=== PATIENT | male | born 1960 | race Caucasian/White ===

== ENCOUNTER 2022-12-04 17:57 | Inpatient (IN) ==
[2022-12-04] MEDS ORDERED: NITROGLYCERIN SL 0.4 MG/TAB TAB SL PRN (18:05)
[2022-12-04] MEDS ORDERED: NITROGLYCERIN SL 0.4 MG/TAB TAB ONE (18:05)
[2022-12-04 18:34] LABS: Basophils # (auto) 0.11 K/uL (0.00-0.20); Basophils % (auto) 1.1 %; Eosinophils # (auto) 0.23 K/uL (0.00-0.50); Eosinophils % (auto) 2.2 %; Hematocrit (blood only) 41.5 % (42.0-52.0); Hemoglobin 14.9 g/dl (14.0-18.0); Immature Granulocytes # (auto) 0.04 K/uL (0.01-0.20); Immature Granulocytes % (auto) 0.4 %; Lymphocytes # (auto) 3.29 K/uL (1.20-3.40); Lymphocytes % (auto) 31.9 %; Mean Corpuscular Hemoglobin 30.9 pg (25.0-34.0); Mean Corpuscular Hgb Conc 35.9 g/dL (32.0-36.0); Mean Corpuscular Volume 86.1 fL (80.0-100.0); Mean Platelet Volume 11.4 fL (9.4-12.4); Monocytes # (auto) 0.75 K/uL (0.11-0.59); Monocytes % (auto) 7.3 %; Neutrophils # (auto) 5.88 K/uL (1.40-6.50); Neutrophils % (auto) 57.1 %; Platelet Count 303 K/uL (130-400); RDW Coefficient of Variation 13.1 % (11.5-14.5); RDW Standard Deviation 40.6 fL (36.4-46.3); Red Blood Count 4.82 M/uL (4.70-6.10)
[2022-12-04 18:50] LABS: Alanine Aminotransferase 42 U/L (7-52); Albumin Globulin Ratio 2.3 (0.9-2); Albumin Level 4.6 gm/dl (3.4-5.0); Alkaline Phosphatase 84 U/L (34-104); Anion Gap 7 (3-11); Aspartate Aminotransferase 47 U/L (13-39); BUN Creatinine Ratio 17.3 (10-20); Bilirubin,Total 0.8 mg/dl (0.2-1.0); Blood Urea Nitrogen 14 mg/dl (6-23); Calcium 9.4 mg/dl (8.6-10.3); Carbon Dioxide 23 mmol/L (21-32); Chloride 109 mmol/L (98-107); Est GFR (African American) 109.6 ml/min; Est GFR (Non-African American) 94.6 ml/min; Glucose 112 mg/dl (70-99(Fasting)); Lipase 44 U/L (11-82); Potassium 3.6 mmol/L (3.5-5.1); Sodium 139 mmol/L (136-145); Total Protein 6.6 gm/dl (6.0-8.3)
[2022-12-04 18:56] LABS: Troponin I High Sensitivity 45.4 pg/ml (0-20)
[2022-12-04 19:02] LABS: Partial Thromboplastin Ratio 0.9; Partial Thromboplastin Time 24.2 Seconds (21.0-31.0); Prothrombin Time 10.8 Seconds (9.0-12.0)
--- NOTE | 2022-12-04 19:18 | XRay Report ---
SINGLE VIEW CHEST CLINICAL HISTORY: Atypical chest pain. FINDINGS: 2 AP, portable, upright chest radiographs are obtained. No prior studies are available for comparison at the time of dictation. The examination is degraded by portable technique and apical marisa dotic positioning. The heart is mildly enlarged. The pulmonary vasculature is noncongested. The lungs and pleural spaces are clear. No pneumothorax is seen. The bony thorax is grossly intact. IMPRESSION: No acute cardiopulmonary abnormality. ACT 112: Negative or not required by law. Electronically signed by: Ruben Melton M.D. 12/04/2022 7:16 PM
[2022-12-04] MEDS ORDERED: LACTATED RINGER'S 1,000 ML IV ONE (19:49)
--- NOTE | 2022-12-04 20:47 | History & Physical Report ---
Date of Service December 04, 2022 Assessment & Plan (1) Symptomatic bradycardia: Plan: Chest pain with troponin elevation currently downtrending History of CAD status post recent stent valvular heart disease (moderate aortic stenosis, trace MR/TR) JACQUELYN on CPAP PCU Atropine as needed symptomatic bradycardia Follow troponin TTE if with progression Further evaluation and management as per Cardiology (ER provider already in touch with Dr. Trevizo.) N.p.o. after midnight in anticipation of procedure DVT prophylaxis. Lovenox subcu Full code Patient requesting updates from providers. Ms. Angely Arceo, contact #[phone]. Text document was generated using [employer] voice recognition software. It may contain grammatical or spelling errors. Kindly contact undersigned for clarification of any documentation item in question. History of Present Illness Chief Complaint: Chest pain Primary Care Provider: Milly Loza MD History obtained from patient, family, and records. Medical history significant for CAD status post recent stent, valvular heart disease (moderate aortic stenosis, trace MR/TR), JACQUELYN on CPAP. 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 Subsequent PCI of severe proximal LAD CAD. Patient discharged on new antiplatelet and statin medications. Patient had substernal discomfort this afternoon with shortness of breath and diaphoresis. Nonpleuritic. Patient stressed out thinking about medical and dental bills. No response to Tums and nitro medication intake. EMS called to patient's home. Blood pressure 80s, heart rate 40s. Patient given atropine and aspirin by EMS. Chest pressure improved after intervention. Patient subsequently transported to the ER. 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 Allergies Allergy/AdvReac Type Severity Reaction Status Date / Time nitrofurantoin AdvReac Intermediate Chills, Verified 12/04/22 18:27 Rigors sulfadimethoxine AdvReac Intermediate Chills, Verified 12/04/22 18:27 rigors Home Medications Medication Instructions Recorded Confirmed Type CPAP Machine #1 ea 11/06/18 07/31/22 Rx CPAP Machine #1 ea 01/29/19 07/31/22 Rx multivitamin (Daily Multi-Vitamin 1 tab PO DAILY 04/29/19 12/04/22 History tablet) omega-3 fatty acids-fish oil 360 2 cap PO DAILY 04/29/19 12/04/22 History mg-1,200 mg capsule (Fish Oil) loratadine 10 mg tablet (Allergy 10 mg PO DAILY PRN allergy symptoms 06/08/20 12/04/22 History Relief (loratadine)) nitroglycerin 0.4 mg sublingual 0.4 mg sublingual Q5M PRN chest 11/29/22 12/04/22 Rx tablet pain #20 tabs atorvastatin 80 mg tablet 80 mg PO HS #30 tabs 12/03/22 12/04/22 Rx clopidogrel 75 mg tablet (Plavix) 75 mg PO DAILY #90 tabs 12/03/22 12/04/22 Rx ascorbic acid (vitamin C) 500 mg 500 mg PO DAILY 12/04/22 12/04/22 History tablet (Vitamin C) aspirin 81 mg tablet,delayed 81 mg PO HS 12/04/22 12/04/22 History release jena (Zingiber officinalis) 500 0 mg PO DAILY 12/04/22 12/04/22 History mg capsule metoprolol succinate 25 mg 25 mg PO HS 12/04/22 12/04/22 History tablet,extended release 24 hr turmeric 400 mg capsule 400 mg PO BID 12/04/22 12/04/22 History Past Med/Surg History Medical History Aortic stenosis Bicuspid aortic valve Chronic sinusitis Obstructive sleep apnea of adult Prostatitis Surgical History History of tonsillectomy Family History Unknown Heart disease Dementia Myocardial infarction Unknown Multiple sclerosis Social History Smoking Status: Never smoker Hx Alcohol Use: Yes Alcohol type: beer Hx Substance Use: No Preferred Language: Mongolian Communication Ability: Effective 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 Beliefs That Will Affect Care: None Current Living Situation: Spouse Other Information That Helps Us Care for You: No Feels Safe at Home: Yes Safety Concerns: Feels Safe At This Time Assistive Devices: CPAP Review of Systems Review of Systems: As per HPI, all other systems reviewed and negative Physical Exam Physical Exam: GENERAL: Comfortable, slightly anxious, pleasant, no respiratory distress SKIN: Normal color, warm HEENT: Bespectacled, [place] palpebral conjunctivae, no ptosis, dry buccal mucosa NECK : Supple, no tenderness CHEST : CTA, no tenderness HEART : Bradycardic, systolic murmur ABDOMEN: Some distention, nontender EXTREMITIES : No LE swelling/tenderness, no other conspicuous deformities noted NEUROLOGIC : Coherent, no facial asymmetry, no other gross focality Results & Data Results & Data Vital Signs (Past 12 Hours) Vital Signs Temp Pulse Resp BP Pulse Ox O2 Del Method 12/04/22 20:00 59 L 17 99 12/04/22 19:30 57 L 14 99 12/04/22 19:30 107/69 12/04/22 19:15 58 L 13 114/70 100 12/04/22 19:00 63 16 108/68 100 12/04/22 18:50 62 14 100/68 99 12/04/22 18:40 64 14 99 12/04/22 18:40 108/69 12/04/22 18:30 65 20 98 12/04/22 18:30 111/70 12/04/22 18:20 75 16 95 Room Air 12/04/22 18:20 116/71 12/04/22 18:10 106/75 12/04/22 18:10 79 18 97 12/04/22 18:03 73 14 12/04/22 18:03 137/84 12/04/22 18:02 73 17 99 12/04/22 18:10 81 12/04/22 18:00 36.9 C 77 18 137/84 100 Room Air Laboratory Results Laboratory Results WBC 10.30 K/ul (4.8-10.8) 12/04/22 17:35 RBC 4.82 M/uL (4.70-6.10) 12/04/22 17:35 Hgb 14.9 g/dl (14.0-18.0) 12/04/22 17:35 Hct 41.5 % (42.0-52.0) L 12/04/22 17:35 MCV 86.1 fL (80.0-100.0) 12/04/22 17:35 MCH 30.9 pg (25.0-34.0) 12/04/22 17:35 MCHC 35.9 g/dL (32.0-36.0) 12/04/22 17:35 RDW Std Deviation 40.6 fL (36.4-46.3) 12/04/22 17:35 RDW Coeff of Ninfa 13.1 % (11.5-14.5) 12/04/22 17:35 Plt Count 303 K/uL (130-400) 12/04/22 17:35 MPV 11.4 fL (9.4-12.4) 12/04/22 17:35 Immature Gran % (Auto) 0.4 % 12/04/22 17:35 Neut % (Auto) 57.1 % 12/04/22 17:35 Lymph % (Auto) 31.9 % 12/04/22 17:35 [place] % (Auto) 7.3 % 12/04/22 17:35 Eos % (Auto) 2.2 % 12/04/22 17:35 Baso % (Auto) 1.1 % 12/04/22 17:35 Neut # (Auto) 5.88 K/uL (1.40-6.50) 12/04/22 17:35 Lymph # (Auto) 3.29 K/uL (1.20-3.40) 12/04/22 17:35 [place] # (Auto) 0.75 K/uL (0.11-0.59) H 12/04/22 17:35 Eos # (Auto) 0.23 K/uL (0.00-0.50) 12/04/22 17:35 Baso # (Auto) 0.11 K/uL (0.00-0.20) 12/04/22 17:35 Immature Gran # (Auto) 0.04 K/uL (0.01-0.20) 12/04/22 17:35 PT 10.8 Seconds (9.0-12.0) 12/04/22 17:35 INR 1.0 (0.9-1.1) 12/04/22 17:35 APTT 24.2 Seconds (21.0-31.0) 12/04/22 17:35 PTT Ratio 0.9 12/04/22 17:35 Sodium 139 mmol/L (136-145) 12/04/22 17:35 Potassium 3.6 mmol/L (3.5-5.1) 12/04/22 17:35 Chloride 109 mmol/L (98-107) H 12/04/22 17:35 Carbon Dioxide 23 mmol/L (21-32) 12/04/22 17:35 Anion Gap 7 (3-11) 12/04/22 17:35 BUN 14 mg/dl (6-23) 12/04/22 17:35 Creatinine 0.81 mg/dl (0.6-1.4) 12/04/22 17:35 Est Cr Clr Drug Dosing Not Reportable 12/04/22 17:35 Est GFR ( Amer) 109.6 ml/min 12/04/22 17:35 Est GFR (Non-Af Amer) 94.6 ml/min 12/04/22 17:35 BUN/Creatinine Ratio 17.3 (10-20) 12/04/22 17:35 Glucose 112 mg/dl (70-99(Fasting)) H 12/04/22 17:35 POC Glucose 95 mg/dl (70-99) 12/04/22 18:02 Calcium 9.4 mg/dl (8.6-10.3) 12/04/22 17:35 Magnesium 2.0 mg/dl (1.7-2.4) 12/04/22 17:35 Total Bilirubin 0.8 mg/dl (0.2-1.0) 12/04/22 17:35 AST 47 U/L (13-39) H 12/04/22 17:35 ALT 42 U/L (7-52) 12/04/22 17:35 Alkaline Phosphatase 84 U/L (34-104) 12/04/22 17:35 Troponin I High Sens 45.4 pg/ml (0-20) H 12/04/22 17:35 Total Protein 6.6 gm/dl (6.0-8.3) 12/04/22 17:35 Albumin 4.6 gm/dl (3.4-5.0) 12/04/22 17:35 Globulin 2.0 gm/dl (2.5-4.0) L 12/04/22 17:35 Albumin/Globulin Ratio 2.3 (0.9-2) H 12/04/22 17:35 Lipase 44 U/L (11-82) 12/04/22 17:35 Impressions Chest X-Ray 12/04/22 18:05 SINGLE VIEW CHEST CLINICAL HISTORY: Atypical chest pain. FINDINGS: 2 AP, portable, upright chest radiographs are obtained. No prior studies are available for comparison at the time of dictation. The examination is degraded by portable technique and apical lordotic positioning. The heart is mildly enlarged. The pulmonary vasculature is noncongested. The lungs and pleural spaces are clear. No pneumothorax is seen. The bony thorax is grossly intact. IMPRESSION: No acute cardiopulmonary abnormality. ACT 112: Negative or not required by law. Electronically signed by: Ruben Melton M.D. 12/04/2022 7:16 PM Diagnostic Findings EKG as per my interpretation : Rate 70, NSR, LAD, LAFB, no ischemia
[2022-12-04] MEDS ORDERED: traMADol HCL 50 MG TABLET PO PRN (20:50)
[2022-12-04] MEDS ORDERED: ATROPINE SULFATE 0.1 MG/ML 10ML SYR IV PRN (20:50)
[2022-12-04] MEDS ORDERED: PROMETHAZINE HCL 6.25 MG in SODIUM CHLORIDE 0.9% 50 ML IV PRN (20:50)
[2022-12-04] MEDS ORDERED: LORazepam 0.5 MG TAB PO PRN (20:50)
[2022-12-04] MEDS ORDERED: MoRPHine SULFATE 2 MG/ML CARP IV PRN (20:50)
[2022-12-04 21:42] LABS: Lyme Ab IgG w/WB Rflx Negative (Negative); Lyme Ab IgM w/WB Rflx Negative (Negative)
--- NOTE | 2022-12-04 22:31 | Emergency Department Note ---
History of Present Illness General Chief Complaint: Chest Pain Stated Complaint: CHEST PAIN Time Seen by Provider: 12/04/22 18:04 Source: patient and EMS History of Present Illness Provider Complaint: chest pain Time: 16:30 Duration: improved Onset: other (while paying bills) Pain Location: substernal and left chest Pain Radiation: none Severity: moderate Maximum Pain Intensity: 8 Current Pain Intensity: 3 Quality: + heaviness Relieved By: + other (Atropine) Exacerbated By: + nothing Context: + recent surgery (Patient had cardiac catheterization done by Dr. Trevizo yesterday and had a stent placed); no recent illness, no recent immobilization, no recent travel, no trauma/injury, no new medications or no history of DVT/PE Associated symptoms: + diaphoresis; no nausea, no vomiting, no dyspnea, no syncope, no palpitations, no fever or no cough Treatments prior to arrival: aspirin and other (Atropine 1 mg. Normal saline bolus of 200 cc.) Home Medications Medication Instructions Recorded Confirmed Type CPAP Machine #1 ea 11/06/18 07/31/22 Rx CPAP Machine #1 ea 01/29/19 07/31/22 Rx multivitamin (Daily Multi-Vitamin 1 tab PO DAILY 04/29/19 12/04/22 History tablet) omega-3 fatty acids-fish oil 360 2 cap PO DAILY 04/29/19 12/04/22 History mg-1,200 mg capsule (Fish Oil) loratadine 10 mg tablet (Allergy 10 mg PO DAILY PRN allergy symptoms 06/08/20 12/04/22 History Relief (loratadine)) nitroglycerin 0.4 mg sublingual 0.4 mg sublingual Q5M PRN chest 11/29/22 12/04/22 Rx tablet pain #20 tabs atorvastatin 80 mg tablet 80 mg PO HS #30 tabs 12/03/22 12/04/22 Rx clopidogrel 75 mg tablet (Plavix) 75 mg PO DAILY #90 tabs 12/03/22 12/04/22 Rx ascorbic acid (vitamin C) 500 mg 500 mg PO DAILY 12/04/22 12/04/22 History tablet (Vitamin C) aspirin 81 mg tablet,delayed 81 mg PO HS 12/04/22 12/04/22 History release jena (Zingiber officinalis) 500 0 mg PO DAILY 12/04/22 12/04/22 History mg capsule metoprolol succinate 25 mg 25 mg PO HS 12/04/22 12/04/22 History tablet,extended release 24 hr turmeric 400 mg capsule 400 mg PO BID 12/04/22 12/04/22 History Allergies Allergy/AdvReac Type Severity Reaction Status Date / Time nitrofurantoin AdvReac Intermediate Chills, Verified 12/04/22 18:27 Rigors sulfadimethoxine AdvReac Intermediate Chills, Verified 12/04/22 18:27 rigors Past Med/Surg History Medical History Aortic stenosis Bicuspid aortic valve Chronic sinusitis Obstructive sleep apnea of adult Prostatitis Surgical History History of tonsillectomy Family History Unknown Heart disease Dementia Myocardial infarction Unknown Multiple sclerosis Social History Smoking Status: Never smoker Hx Alcohol Use: Yes Alcohol type: beer Hx Substance Use: No Preferred Language: Trinidadian Communication Ability: Effective Sponsorship Coordinator Required: No Beliefs That Will Affect Care: None Current Living Situation: Spouse Feels Safe at Home: Yes Physical Exam Vital Signs Vital Signs - 24 hr 12/04/22 18:00 12/04/22 18:10 12/04/22 18:02 Temperature 36.9 C Temperature Source Oral Pulse Rate 77 81 73 Pulse Rate from SpO2 Sensor 78 Respiratory Rate 18 17 Respiratory Effort / Characteristics Non-Labored Spontaneous Blood Pressure 137/84 Blood Pressure Mean 101 Pulse Oximetry 100 99 Oxygen Delivery Method Room Air Sepsis Recent Fever Within 48 Hours No Sepsis New/Unexplained Change in Mental Status No Sepsis Action Taken by Nursing No Action Required 12/04/22 18:03 12/04/22 18:03 12/04/22 18:10 Temperature Temperature Source Pulse Rate 73 79 Pulse Rate from SpO2 Sensor Respiratory Rate 14 18 Respiratory Effort / Characteristics Blood Pressure 137/84 Blood Pressure Mean 101 Pulse Oximetry 97 Oxygen Delivery Method Sepsis Recent Fever Within 48 Hours Sepsis New/Unexplained Change in Mental Status Sepsis Action Taken by Nursing 12/04/22 18:10 12/04/22 18:20 12/04/22 18:20 Temperature Temperature Source Pulse Rate 75 Pulse Rate from SpO2 Sensor 74 Respiratory Rate 16 Respiratory Effort / Characteristics Blood Pressure 106/75 116/71 Blood Pressure Mean 85 86 Pulse Oximetry 95 Oxygen Delivery Method Room Air Sepsis Recent Fever Within 48 Hours Sepsis New/Unexplained Change in Mental Status Sepsis Action Taken by Nursing 12/04/22 18:30 12/04/22 18:30 12/04/22 18:40 Temperature Temperature Source Pulse Rate 65 Pulse Rate from SpO2 Sensor 65 Respiratory Rate 20 Respiratory Effort / Characteristics Blood Pressure 111/70 108/69 Blood Pressure Mean 83 82 Pulse Oximetry 98 Oxygen Delivery Method Sepsis Recent Fever Within 48 Hours Sepsis New/Unexplained Change in Mental Status Sepsis Action Taken by Nursing 12/04/22 18:40 12/04/22 18:50 12/04/22 19:00 Temperature Temperature Source Pulse Rate 64 62 63 Pulse Rate from SpO2 Sensor 65 61 62 Respiratory Rate 14 14 16 Respiratory Effort / Characteristics Blood Pressure 100/68 108/68 Blood Pressure Mean 78 81 Pulse Oximetry 99 99 100 Oxygen Delivery Method Sepsis Recent Fever Within 48 Hours Sepsis New/Unexplained Change in Mental Status Sepsis Action Taken by Nursing 12/04/22 19:15 12/04/22 19:30 12/04/22 19:30 Temperature Temperature Source Pulse Rate 58 L 57 L Pulse Rate from SpO2 Sensor 57 L 57 L Respiratory Rate 13 14 Respiratory Effort / Characteristics Blood Pressure 114/70 107/69 Blood Pressure Mean 84 81 Pulse Oximetry 100 99 Oxygen Delivery Method Sepsis Recent Fever Within 48 Hours Sepsis New/Unexplained Change in Mental Status Sepsis Action Taken by Nursing 12/04/22 20:00 12/04/22 20:30 Temperature Temperature Source Pulse Rate 59 L 53 L Pulse Rate from SpO2 Sensor 59 L 53 L Respiratory Rate 17 16 Respiratory Effort / Characteristics Blood Pressure Blood Pressure Mean Pulse Oximetry 99 100 Oxygen Delivery Method Sepsis Recent Fever Within 48 Hours Sepsis New/Unexplained Change in Mental Status Sepsis Action Taken by Nursing Physical Exam GENERAL: oriented to person, place, and time. appears well-developed and well- nourished. HENT: Exam performed. - Head: Normocephalic and atraumatic. EYES: Conjunctivae and EOM are normal. Right eye exhibits no discharge. Left eye exhibits no discharge. No scleral icterus. NECK: Normal range of motion. Neck supple. No JVD present. CV: Normal rate, regular rhythm, normal heart sounds and intact distal pulses. There is no peripheral edema. Palpable radial pulses bue. PULM/CHEST: Effort normal and breath sounds normal. No respiratory distress. No stridor. no wheezes. no rales. ABD: The abdomen is soft. There is no tenderness. NEURO: Motor and sensation grossly intact. SKIN: Skin is warm and dry. He is not diaphoretic. PSYCH: normal mood and affect. Behavior is normal. Judgment and thought content normal. Course Course 1735: Received a call from EMS for a patient with chest pain who had a heart ca theterization done yesterday. Per EMS the patient was diaphoretic having 8 of 10 chest pain. Patient was found to be hypotensive with blood pressure of 85/46 and a pulse of 40. Prehospital EKG shows sinus bradycardia with a rate in the 40s. I instructed the EMS team to administer the patient atropine 1 mg IV push and normal saline bolus of 250 cc bolus. 1756: Repeat EKG was transmitted status post the atropine administration. Patient was in sinus rhythm with a rate of 70. UT QRS and QTc intervals were within normal limits. EMS reports that the patient's heart rate is improved into the 70s and his blood pressure is improved also. 1804: The patient was evaluated in room B1. A complete history and physical exam was performed Cardiac monitoring: An order was placed for continuous cardiac monitoring. The monitor shows a rate of 70 with sinus rhythm interpreted by sc Bedside [id number] ultrasound showed no pericardial effusion. 1813: Status post 1 sublingual nitroglycerin the patient's vital signs are stable and his chest pain is rated a 1 out of 10 at this time. 1818: Spoke with the patient's lead pharmacy technician Dr. Trevizo. He states that the patient should have a cardiac work-up conducted and unless the patient's EKG or chest pain worsened the patient can be admitted to the hospitalist team and he will evaluate the patient in the morning. 1930: Vital signs stable. Patient reports no chest pain or difficulty breathing at this time. Labs are within normal limits with the exception of a high- sensitivity troponin of 45.4, this is thought to be elevated secondary to the patient's recent stent placement yesterday. Patient will be admitted to the [facility] hospitalist team and cardiology will evaluate the patient in the morning. Dr. Bergeron will be made aware of the patient. Administered Medications Discontinued Medications Nitroglycerin (Nitroglycerin Sl 0.4 Mg/Tab Tab) Confirm Administered Dose 0.4 mg .ROUTE .STK-MED ONE Stop: 12/04/22 18:06 Last Admin: 12/04/22 18:11 Dose: Not Given Documented By: VARINDER Nitroglycerin (Nitroglycerin Sl 0.4 Mg/Tab Tab) 0.4 mg SL Q5M PRN PRN Reason: Chest Pain Stop: 01/03/23 18:04 Last Admin: 12/04/22 18:05 Dose: 0.4 mg Documented By: VARINDER Medical Decision Making Laboratory Data Attestation: I reviewed the patient's lab results. 12/04/22 17:35 12/04/22 17:35 Labs: Lab Results 12/04/22 12/04/22 12/04/22 Range/Units 17:35 17:35 17:35 WBC 10.30 (4.8-10.8) K/ul RBC 4.82 (4.70-6.10) M/uL Hgb 14.9 (14.0-18.0) g/dl Hct 41.5 L (42.0-52.0) % MCV 86.1 (80.0-100.0) fL MCH 30.9 (25.0-34.0) pg MCHC 35.9 (32.0-36.0) g/dL RDW Std Deviation 40.6 (36.4-46.3) fL RDW Coeff of Ninfa 13.1 (11.5-14.5) % Plt Count 303 (130-400) K/uL MPV 11.4 (9.4-12.4) fL Immature Gran % (Auto) 0.4 % Neut % (Auto) 57.1 % Lymph % (Auto) 31.9 % [place] % (Auto) 7.3 % Eos % (Auto) 2.2 % Baso % (Auto) 1.1 % Neut # (Auto) 5.88 (1.40-6.50) K/uL Lymph # (Auto) 3.29 (1.20-3.40) K/uL [place] # (Auto) 0.75 H (0.11-0.59) K/uL Eos # (Auto) 0.23 (0.00-0.50) K/uL Baso # (Auto) 0.11 (0.00-0.20) K/uL Immature Gran # (Auto) 0.04 (0.01-0.20) K/uL PT 10.8 (9.0-12.0) Seconds INR 1.0 (0.9-1.1) APTT 24.2 (21.0-31.0) Seconds PTT Ratio 0.9 Sodium 139 (136-145) mmol/L Potassium 3.6 (3.5-5.1) mmol/L Chloride 109 H (98-107) mmol/L Carbon Dioxide 23 (21-32) mmol/L Anion Gap 7 (3-11) BUN 14 (6-23) mg/dl Creatinine 0.81 (0.6-1.4) mg/dl Est Cr Clr Drug Dosing Not Reportable Est GFR ( Amer) 109.6 ml/min Est GFR (Non-Af Amer) 94.6 ml/min BUN/Creatinine Ratio 17.3 (10-20) Glucose 112 H (70-99(Fasting)) mg/dl POC Glucose (70-99) mg/dl Calcium 9.4 (8.6-10.3) mg/dl Magnesium (1.7-2.4) mg/dl Total Bilirubin 0.8 (0.2-1.0) mg/dl AST 47 H (13-39) U/L ALT 42 (7-52) U/L Alkaline Phosphatase 84 (34-104) U/L Troponin I High Sens 45.4 H (0-20) pg/ml Total Protein 6.6 (6.0-8.3) gm/dl Albumin 4.6 (3.4-5.0) gm/dl Globulin 2.0 L (2.5-4.0) gm/dl Albumin/Globulin Ratio 2.3 H (0.9-2) Lipase 44 (11-82) U/L TSH (0.300-4.500) uIu/ml Lyme Disease IgG Ab (Negative) Lyme Disease IgM Ab (Negative) 12/04/22 12/04/22 12/04/22 Range/Units 17:35 18:02 20:45 WBC (4.8-10.8) K/ul RBC (4.70-6.10) M/uL Hgb (14.0-18.0) g/dl Hct (42.0-52.0) % MCV (80.0-100.0) fL MCH (25.0-34.0) pg MCHC (32.0-36.0) g/dL RDW Std Deviation (36.4-46.3) fL RDW Coeff of Ninfa (11.5-14.5) % Plt Count (130-400) K/uL MPV (9.4-12.4) fL Immature Gran % (Auto) % Neut % (Auto) % Lymph % (Auto) % [place] % (Auto) % Eos % (Auto) % Baso % (Auto) % Neut # (Auto) (1.40-6.50) K/uL Lymph # (Auto) (1.20-3.40) K/uL [place] # (Auto) (0.11-0.59) K/uL Eos # (Auto) (0.00-0.50) K/uL Baso # (Auto) (0.00-0.20) K/uL Immature Gran # (Auto) (0.01-0.20) K/uL PT (9.0-12.0) Seconds INR (0.9-1.1) APTT (21.0-31.0) Seconds PTT Ratio Sodium (136-145) mmol/L Potassium (3.5-5.1) mmol/L Chloride (98-107) mmol/L Carbon Dioxide (21-32) mmol/L Anion Gap (3-11) BUN (6-23) mg/dl Creatinine (0.6-1.4) mg/dl Est Cr Clr Drug Dosing Est GFR ( Amer) ml/min Est GFR (Non-Af Amer) ml/min BUN/Creatinine Ratio (10-20) Glucose (70-99(Fasting)) mg/dl POC Glucose 95 (70-99) mg/dl Calcium (8.6-10.3) mg/dl Magnesium 2.0 (1.7-2.4) mg/dl Total Bilirubin (0.2-1.0) mg/dl AST (13-39) U/L ALT (7-52) U/L Alkaline Phosphatase (34-104) U/L Troponin I High Sens (0-20) pg/ml Total Protein (6.0-8.3) gm/dl Albumin (3.4-5.0) gm/dl Globulin (2.5-4.0) gm/dl Albumin/Globulin Ratio (0.9-2) Lipase (11-82) U/L TSH (0.300-4.500) uIu/ml Lyme Disease IgG Ab Negative (Negative) Lyme Disease IgM Ab Negative (Negative) 12/04/22 12/04/22 Range/Units 20:47 20:47 WBC (4.8-10.8) K/ul RBC (4.70-6.10) M/uL Hgb (14.0-18.0) g/dl Hct (42.0-52.0) % MCV (80.0-100.0) fL MCH (25.0-34.0) pg MCHC (32.0-36.0) g/dL RDW Std Deviation (36.4-46.3) fL RDW Coeff of Ninfa (11.5-14.5) % Plt Count (130-400) K/uL MPV (9.4-12.4) fL Immature Gran % (Auto) % Neut % (Auto) % Lymph % (Auto) % [place] % (Auto) % Eos % (Auto) % Baso % (Auto) % Neut # (Auto) (1.40-6.50) K/uL Lymph # (Auto) (1.20-3.40) K/uL [place] # (Auto) (0.11-0.59) K/uL Eos # (Auto) (0.00-0.50) K/uL Baso # (Auto) (0.00-0.20) K/uL Immature Gran # (Auto) (0.01-0.20) K/uL PT (9.0-12.0) Seconds INR (0.9-1.1) APTT (21.0-31.0) Seconds PTT Ratio Sodium (136-145) mmol/L Potassium (3.5-5.1) mmol/L Chloride (98-107) mmol/L Carbon Dioxide (21-32) mmol/L Anion Gap (3-11) BUN (6-23) mg/dl Creatinine (0.6-1.4) mg/dl Est Cr Clr Drug Dosing Est GFR ( Amer) ml/min Est GFR (Non-Af Amer) ml/min BUN/Creatinine Ratio (10-20) Glucose (70-99(Fasting)) mg/dl POC Glucose (70-99) mg/dl Calcium (8.6-10.3) mg/dl Magnesium (1.7-2.4) mg/dl Total Bilirubin (0.2-1.0) mg/dl AST (13-39) U/L ALT (7-52) U/L Alkaline Phosphatase (34-104) U/L Troponin I High Sens 43.9 H (0-20) pg/ml Total Protein (6.0-8.3) gm/dl Albumin (3.4-5.0) gm/dl Globulin (2.5-4.0) gm/dl Albumin/Globulin Ratio (0.9-2) Lipase (11-82) U/L TSH 1.324 (0.300-4.500) uIu/ml Lyme Disease IgG Ab (Negative) Lyme Disease IgM Ab (Negative) Imaging Data Chest x-ray: Attestation: I personally reviewed and interpreted this imaging study as follows: Radiologist's impression: Chest X-Ray 12/04/22 18:05 SINGLE VIEW CHEST CLINICAL HISTORY: Atypical chest pain. FINDINGS: 2 AP, portable, upright chest radiographs are obtained. No prior studies are available for comparison at the time of dictation. The examination is degraded by portable technique and apical lordotic positioning. The heart is mildly enlarged. The pulmonary vasculature is noncongested. The lungs and pleural spaces are clear. No pneumothorax is seen. The bony thorax is grossly intact. IMPRESSION: No acute cardiopulmonary abnormality. ACT 112: Negative or not required by law. Electronically signed by: Ruben Melton M.D. 12/04/2022 7:16 PM ECG Data Attestation: I personally reviewed and interpreted this ECG as follows: Indication: chest pain Rate (beats per minute): 72 Rhythm: normal sinus Findings: no ST depression, no ST elevation or no prolonged QT MDM Narrative 1735: Received a call from EMS for a patient with chest pain who had a heart catheterization done yesterday. Per EMS the patient was diaphoretic having 8 of 10 chest pain. Patient was found to be hypotensive with blood pressure of 85/46 and a pulse of 40. Prehospital EKG shows sinus bradycardia with a rate in the 40s. I instructed the EMS team to administer the patient atropine 1 mg IV push and normal saline bolus of 250 cc bolus. 1756: Repeat EKG was transmitted status post the atropine administration. Patient was in sinus rhythm with a rate of 70. UT QRS and QTc intervals were within normal limits. EMS reports that the patient's heart rate is improved into the 70s and his blood pressure is improved also. 1804: The patient was evaluated in room B1. A complete history and physical exam was performed Cardiac monitoring: An order was placed for continuous cardiac monitoring. The monitor shows a rate of 70 with sinus rhythm interpreted by sc Bedside [id number] ultrasound showed no pericardial effusion. 1813: Status post 1 sublingual nitroglycerin the patient's vital signs are stable and his chest pain is rated a 1 out of 10 at this time. 1818: Spoke with the patient's lead pharmacy technician Dr. Trevizo. He states that the patient should have a cardiac work-up conducted and unless the patient's EKG or chest pain worsened the patient can be admitted to the hospitalist team and he will evaluate the patient in the morning. 1930: Vital signs stable. Patient reports no chest pain or difficulty breathing at this time. Labs are within normal limits with the exception of a high- sensitivity troponin of 45.4, this is thought to be elevated secondary to the patient's recent stent placement yesterday. Patient will be admitted to the [facility] hospitalist team and cardiology will evaluate the patient in the morning. Dr. Bergeron will be made aware of the patient. Impression & Plan Symptomatic bradycardia, Chest pain, Elevated troponin Critical Care Time Critical Care Time: Yes Total Critical Care Time: 36 I have personally spent greater than 36 minutes of critical care time in the direct management of this patient. This includes bedside care, interpretation of diagnostic studies, and testing, discussion with consultants, patient, and family members, and other required patient management activities. This 36 minutes is in excess of all separately billable procedures. Discharge Plan Visit Data Chief Complaint: Chest Pain Stated Complaint: CHEST PAIN ED Provider: Ahmet Gar Discharge Problem: Symptomatic bradycardia, Chest pain, Elevated troponin Patient Disposition: Admitted As Inpatient
[2022-12-04] MEDS ORDERED: LORATADINE 10 MG TAB PO PRN (22:51)
[2022-12-04] MEDS ORDERED: ATORVASTATIN 40 MG TAB PO SCH (22:51)
[2022-12-04] MEDS ORDERED: ACETAMINOPHEN 325 MG TAB PO PRN (22:51)
[2022-12-05 04:54] LABS: Basophils # (auto) 0.06 K/uL (0.00-0.20); Basophils % (auto) 0.8 %; Eosinophils # (auto) 0.11 K/uL (0.00-0.50); Eosinophils % (auto) 1.5 %; Hematocrit (blood only) 37.8 % (42.0-52.0); Hemoglobin 13.3 g/dl (14.0-18.0); Immature Granulocytes # (auto) 0.01 K/uL (0.01-0.20); Immature Granulocytes % (auto) 0.1 %; Mean Corpuscular Hemoglobin 30.5 pg (25.0-34.0); Mean Corpuscular Hgb Conc 35.2 g/dL (32.0-36.0); Mean Corpuscular Volume 86.7 fL (80.0-100.0); Mean Platelet Volume 10.6 fL (9.4-12.4); Monocytes # (auto) 0.57 K/uL (0.11-0.59); Monocytes % (auto) 7.9 %; Neutrophils # (auto) 4.91 K/uL (1.40-6.50); Neutrophils % (auto) 67.7 %; Platelet Count 193 K/uL (130-400); Red Blood Count 4.36 M/uL (4.70-6.10); White Blood Count 7.26 K/ul (4.8-10.8)
[2022-12-05 05:11] LABS: BUN Creatinine Ratio 15.8 (10-20); Chol HDL Ratio 2.5 (0-5); Creatinine Clr Calc Pharmacy 115.7 ml/min; Est GFR (African American) 112.5 ml/min; Est GFR (Non-African American) 97.1 ml/min
[2022-12-05 05:20] LABS: Troponin I High Sensitivity 33.4 pg/ml (0-20)
[2022-12-05 05:42] LABS: Partial Thromboplastin Time 26.8 Seconds (21.0-31.0)
--- OUTSIDE RECORDS SUMMARY | 2022-12-05 06:18 | External Medical Summary | Summary of Care ---
Author Name Unknown Organization [facility] Address [address] [place] [facility] [place] [address] Phone [phone] Care Team Providers Care Java Project Manager Name Role Phone Milly Loza MD Primary Care Provider [phone] Reason for Visit * Reason Onset Date Comments Scheduling 11/15/2022 Colonoscopy Encounter Details Date Type Department Care Team Description 11/15/2022 Telephone General Internal Medicine [facility] [address] [facility] [place] [address] Milly Loza MD [address] [facility] [place] [address] Scheduling (Colonoscopy ) Allergies Active Allergy Reactions Severity Noted Date Comments Nitrofurantoin Chills/rigors 07/03/2010 Sulfamethoxazole Chills/rigors High 07/03/2010 documented as of this encounter (statuses as of 11/21/2022) Medications Medication Sig Dispensed Refills Start Date End Date Status Ascorbic Acid (VITAMIN C) 500 MG CAPS 4-5 times per week 0 04/08/2019 Active Cholecalciferol (VITAMIN D) 25 MCG (1000 UT) TABS 0 04/08/2019 Active CYANOCOBALAMIN (VITAMIN B-12) 500 MCG Sublingual Tablet 0 04/08/2019 Active Néstor, Zingiber officinalis, (NÉSTOR ROOT) 550 MG CAPS 0 04/08/2019 Active Madison-3 Fatty Acids (FISH OIL) 1000 MG Capsule 0 04/08/2019 Active Turmeric Curcumin Oral Capsule Take by mouth. 0 Active Loratadine 10 MG Oral Capsule Take 1 Capsule by mouth as needed for Rhinitis. 0 04/05/2021 Active documented as of this encounter (statuses as of 11/21/2022) Active Problems Problem Noted Date JACQUELYN on CPAP 11/13/2022 Hair loss 06/01/2016 Hx of skin cancer, basal cell 02/13/2013 Overview: Hx NMSC - BCC L forearm 2000 Obesity, Class I, BMI 30.0-34.9 (see act ual BMI) 02/21/2012 Overview: bmi= 30.56 02/21/12 Vitamin D deficiency 02/21/2012 Dyslipidemia, goal LDL below 100 Calculus of gallbladder Overview: asymptomatic documented as of this encounter (statuses as of 11/21/2022) Resolved Problems Problem Noted Date Resolved Date 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 12/201009/14/2010 Overview: ICD-10 update of inactive term HEMANGIOMA SKIN RIGHT CHEEK 09/14/201011/2012 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 12/201002/13/2013 Overview: ICD-10 update of inactive term Vitamin D deficiency 07/06/2010 02/21/2012 documented as of this encounter (statuses as of 11/21/2022) Immunizations Name Administration Dates Next Due COVID-19 mRNA, LNP-s, No Pre serve, 2-Dose Series ([employer]) 08/06/2020,07/16/2020 Seasonal Influenza Virus Vac cine, Unspecified Formulation 03/14/2019 Seasonal Influenza, Quadriva lent, No Preserve, 6 Mons & Above, IM 01/13/2022,01/24/2021,12/19/2019 Seasonal Influenza, Quadriva lent, No Preserve, IM 03/28/2019,02/15/2018,01/21/2016,01/20 Seasonal Influenza, Split, I IV3, With Preserve, Inj 04/02/2014,01/26/2012 04/02/2015 TD, Preservative Free 11/10/2020 TDAP (age 11 and older)(Adacel) 09/18/2010 Zoster Vaccine Recombinant (Shingrix) 02/27/2019,09/26/2018 documented as of this encounter Social History Tobacco Use Types Packs/Day Years Used Date Smoking Tobacco: Never Smokeless Tobacco: Never Alcohol Use Standard Drinks/Week Comments Yes 0 (1 standard drink = 0.6 oz pur e alcohol) glass or wine or beer per day Food Insecurity Answer Date Recorded Within the past 12 months, y ou worried that your food would run out before you got money to buy more. Never true 11/03/2022 Within the past 12 months, t he food you bought just didn't last and you didn't have money to get more. Never true 11/03/2022 Sex Assigned at Date Recorded Male 09/26/2018 1:04 PM E DT Job Start Date Occupation Industry Not on file Not on file Not on file documented as of this encounter Miscellaneous Notes * Telephone Encounter - JACQUELYN Manrique - 11/21/2022 9:54 AM EDT Letter sent, 3rd attempt 11/21 JAT * Telephone Encounter - JACQUELYN Manrique - 11/20/2022 12:57 PM EDT MyG sent, 2nd attempt 11/20 JAT * Telephone Encounter - JACQUELYN Manrique - 11/19/2022 2:15 PM EDT Called, no VM set-up 11/19 JAT * Telephone Encounter - JACQUELYN Ho - 11/15/2022 10:17 AM EDT Colonoscopy Order placed during recent appointment with Milly Loza. No documentation regarding pt scheduling preferences. Please contact pt about scheduling preferences and then route to pool below for scheduling: SUSAN LARA SCHEDULING POOL/CLASS [[id number]] Thank you documented in this encounter Plan of Treatment Health Maintenance Due Date Last Done Comments Cologuard 01/18/2004 Fecal Occult Blood Test 01/18/2004 Sigmoidoscopy 01/18/2004 COVID-19 Vaccine (3 - Pfizer series) 10/01/2020 08/06/2020, 07/16/2020 Colonoscopy 03/24/2022 03/24/2012, 03/24/2012 Colorectal Cancer Screening 03/24/2022 Influenza Vaccine (FLU shot) (#1) 2022 01/13/2022, 01/24/2021, 12/19/2019, Additional history exists Depression Screening, Annual for Pts 12 and Over 11/14/2023 11/13/2022 Diabetes Screening 11/03/2024 11/03/2021, 0 11/10/2020, 11/02/2019, Additional history exists Lipid Panel 11/03/2026 11/03/2021, 08/0 08/2020, 11/02/2019, Additional history exists DTaP,Tdap,and Td Vaccines (3 - Td or Tdap) 11/10/2030 11/10/2020, 09/18/2010 Zoster Vaccines Completed 02/27/2019, 09/26/2018 GARDASIL-HPV IMMUNIZATION SERIES Aged Out No longer eligible based on patient's age to complete this topic Hepatitis B Aged Out No longer eligi ble based on patient's age to complete this topic MENINGOCOCCAL (MENACTRA/MENVEO) Aged Out No longer eligible based on patient's age to complete this topic Pneumococcal Vaccine: Pediatrics (0 to 5 Years) and At-Risk Patients (6 to 64 Years) Aged Out No longer eligible based on patient's age to complete this topic documented as of this encounter Medical Devices Not on filedocumented as of this encounter Care Teams Java Project Manager Relationship Specialty Start Date End Date Milly Loza MD [address] [facility] [place] [address] PCP - General Internal Medicine 08/26/18 documented as of this encounter
--- OUTSIDE RECORDS SUMMARY | 2022-12-05 06:18 | External Medical Summary | Summary of Care ---
Author Name Unknown Organization [facility] Address [address] [facility] [place] [address] Phone [phone] Care Team Providers Care Cloth Feeder Name Role Phone Milly Loza MD Primary Care Provider [phone] Reason for Visit * Reason Onset Date Comments Scheduling 11/15/2022 Colonoscopy Encounter Details Date Type Department Care Team Description 11/15/2022 Telephone General Internal Medicine [facility] [address] [place] [address] Milly Loza MD [address] [facility] [place] [address] Scheduling (Colonoscopy ) Allergies Active Allergy Reactions Severity Noted Date Comments Nitrofurantoin Chills/rigors 07/03/2010 Sulfamethoxazole Chills/rigors High 07/03/2010 documented as of this encounter (statuses as of 11/19/2022) Medications Medication Sig Dispensed Refills Start Date End Date Status Ascorbic Acid (VITAMIN C) 500 MG CAPS 4-5 times per week 0 04/08/2019 Active Cholecalciferol (VITAMIN D) 25 MCG (1000 UT) TABS 0 04/08/2019 Active CYANOCOBALAMIN (VITAMIN B-12) 500 MCG Sublingual Tablet 0 04/08/2019 Active Néstor, Zingiber officinalis, (NÉSTOR ROOT) 550 MG CAPS 0 04/08/2019 Active Bancroft-3 Fatty Acids (FISH OIL) 1000 MG Capsule 0 04/08/2019 Active Turmeric Curcumin Oral Capsule Take by mouth. 0 Active Loratadine 10 MG Oral Capsule Take 1 Capsule by mouth as needed for Rhinitis. 0 04/05/2021 Active documented as of this encounter (statuses as of 11/19/2022) Active Problems Problem Noted Date JACQUELYN on CPAP 11/13/2022 Hair loss 06/01/2016 Hx of skin cancer, basal cell 02/13/2013 Overview: Hx NMSC - BCC L forearm 2000 Obesity, Class I, BMI 30.0-34.9 (see act ual BMI) 02/21/2012 Overview: bmi= 30.56 02/21/12 Vitamin D deficiency 02/21/2012 Dyslipidemia, goal LDL below 100 Calculus of gallbladder Overview: asymptomatic documented as of this encounter (statuses as of 11/19/2022) Resolved Problems Problem Noted Date Resolved Date 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 12/201009/14/2010 Overview: ICD-10 update of inactive term HEMANGIOMA SKIN RIGHT CHEEK 09/14/201011/2012 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 12/201002/13/2013 Overview: ICD-10 update of inactive term Vitamin D deficiency 07/06/2010 02/21/2012 documented as of this encounter (statuses as of 11/19/2022) Immunizations Name Administration Dates Next Due COVID-19 mRNA, LNP-s, No Pre serve, 2-Dose Series ([employer]) 08/06/2020,07/16/2020 Seasonal Influenza Virus Vac cine, Unspecified [...] route to pool below for scheduling: SUSAN GRIGSBY [facility] SCHEDULING POOL/CLASS [[id number]] Thank you documented in this encounter Plan [...] filedocumented as of this encounter Care Teams Cloth Feeder Relationship Specialty Start Date End Date Milly Loza MD [address] [facility] [place] [address] PCP - General Internal Medicine 08/26/18 documented as of this encounter
--- OUTSIDE RECORDS SUMMARY | 2022-12-05 06:18 | External Medical Summary | Summary of Care ---
Author Name Unknown Organization [facility] Address [address] [place] [facility] [place] [address] Phone [phone] Care Team Providers Care Manager Respiratory Care Name Role Phone Milly Loza MD Primary Care Provider [phone] Reason for Visit * Reason Onset Date Comments Scheduling 11/15/2022 Colonoscopy Encounter Details Date Type Department Care Team Description 11/15/2022 Telephone General Internal Medicine [facility] [address] [facility] [place] [address] Milly Loza MD [address] [facility] [place] [address] Scheduling (Colonoscopy ) Allergies Active Allergy Reactions Severity Noted Date Comments Nitrofurantoin Chills/rigors 07/03/2010 Sulfamethoxazole Chills/rigors High 07/03/2010 documented as of this encounter (statuses as of 11/20/2022) Medications Medication Sig Dispensed Refills Start Date End Date Status Ascorbic Acid (VITAMIN C) 500 MG CAPS 4-5 times per week 0 04/08/2019 Active Cholecalciferol (VITAMIN D) 25 MCG (1000 UT) TABS 0 04/08/2019 Active CYANOCOBALAMIN (VITAMIN B-12) 500 MCG Sublingual Tablet 0 04/08/2019 Active Néstor, Zingiber officinalis, (NÉSTOR ROOT) 550 MG CAPS 0 04/08/2019 Active Rupert-3 Fatty Acids (FISH OIL) 1000 MG Capsule 0 04/08/2019 Active Turmeric Curcumin Oral Capsule Take by mouth. 0 Active Loratadine 10 MG Oral Capsule Take 1 Capsule by mouth as needed for Rhinitis. 0 04/05/2021 Active documented as of this encounter (statuses as of 11/20/2022) Active Problems Problem Noted Date JACQUELYN on CPAP 11/13/2022 Hair loss 06/01/2016 Hx of skin cancer, basal cell 02/13/2013 Overview: Hx NMSC - BCC L forearm 2000 Obesity, Class I, BMI 30.0-34.9 (see act ual BMI) 02/21/2012 Overview: bmi= 30.56 02/21/12 Vitamin D deficiency 02/21/2012 Dyslipidemia, goal LDL below 100 Calculus of gallbladder Overview: asymptomatic documented as of this encounter (statuses as of 11/20/2022) Resolved Problems Problem Noted Date Resolved Date 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 12/201009/14/2010 Overview: ICD-10 update of inactive term HEMANGIOMA SKIN RIGHT CHEEK 09/14/201011/2012 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 12/201002/13/2013 Overview: ICD-10 update of inactive term Vitamin D deficiency 07/06/2010 02/21/2012 documented as of this encounter (statuses as of 11/20/2022) Immunizations Name Administration Dates Next Due COVID-19 mRNA, LNP-s, No Pre serve, 2-Dose Series ([employer]) 08/06/2020,07/16/2020 Seasonal Influenza Virus Vac cine, Unspecified [...] to pool below for scheduling: SUSAN GRIGSBY [facility] SCHEDULING POOL/CLASS [[id number]] Thank you documented in this encounter Plan [...] filedocumented as of this encounter Care Teams Manager Respiratory Care Relationship Specialty Start Date End Date Milly Loza MD [address] [place] [address] [place] [address] PCP - General Internal Medicine 08/26/18 documented as of this encounter
--- OUTSIDE RECORDS SUMMARY | 2022-12-05 06:18 | External Medical Summary | Summary of Care ---
Author Name Unknown Organization [place] [address] Care Team Providers Care Environmental Health Aide Name Role Phone Milly Loza MD Primary Care Provider [phone] Encounter Details Date Type Department Care Team Description 01/11/2022 Scan Encounter General Internal Medicine [facility] [place] [address] [facility] [place] [address] Milly Loza MD 200 [place] [place] [address] <No scans attached> Allergies Active Allergy Reactions Severity Noted Date Comments Nitrofurantoin Chills/rigors 07/03/2010 Sulfamethoxazole Chills/rigors High 07/03/2010 documented as of this encounter (statuses as of 01/12/2022) Medications Medication Sig Dispensed Refills Start Date End Date Status Ascorbic Acid (VITAMIN C) 500 MG CAPS 4-5 times per week 0 04/08/2019 Active Cholecalciferol (VITAMIN D) 25 MCG (1000 UT) TABS 0 04/08/2019 Active CYANOCOBALAMIN (VITAMIN B-12) 500 MCG Sublingual Tablet 0 04/08/2019 Active Néstor, Zingiber officinalis, (NÉSTOR ROOT) 550 MG CAPS 0 04/08/2019 Active Alva-3 Fatty Acids (FISH OIL) 1000 MG Capsule 0 04/08/2019 Active Turmeric Curcumin Oral Capsule Take by mouth. 0 Active documented as of this encounter (statuses as of 01/12/2022) Active Problems Problem Noted Date Hair loss 06/01/2016 Hx of skin cancer, basal cell 02/13/2013 Overview: Hx NMSC - BCC L forearm 2000 Obesity, Class I, BMI 30.0-34.9 (see act ual BMI) 02/21/2012 Overview: bmi= 30.56 02/21/12 Vitamin D deficiency 02/21/2012 Dyslipidemia, goal LDL below 100 Calculus of gallbladder Overview: asymptomatic documented as of this encounter (statuses as of 01/12/2022) Resolved Problems Problem Noted Date Resolved Date 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 12/201009/14/2010 Overview: ICD-10 update of inactive term HEMANGIOMA SKIN RIGHT CHEEK 09/14/201011/2012 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 12/201002/13/2013 Overview: ICD-10 update of inactive term Vitamin D deficiency 07/06/2010 02/21/2012 documented as of this encounter (statuses as of 01/12/2022) Immunizations Name Administration Dates Next Due COVID-19 mRNA, LNP-s, No Pre serve, 2-Dose Series ([employer]) 08/06/2020,07/16/2020 Seasonal Influenza Virus Vac cine, Unspecified Formulation 03/14/2019 Seasonal Influenza, Quadriva lent, No Preserve, 6 Mons & Above, IM 01/24/2021,12/19/2019 Seasonal Influenza, Quadriva lent, No Preserve, IM 03/28/2019,02/15/2018,01/21/2016,01/20 Seasonal Influenza, Split, I IV3, With Preserve, Inj 04/02/2014,01/26/2012 04/02/2015 TD, Preservative Free 11/10/2020 TDAP (age 11 and older)(Adacel) 09/18/2010 Zoster Vaccine Recombinant (Shingrix) 02/27/2019,09/26/2018 documented as of this encounter Social History Tobacco Use Types Packs/Day Years Used Date Never Smoker Smokeless Tobacco: Never Used Alcohol Use Standard Drinks/Week Comments Yes 0 (1 standard drink = 0.6 oz pur e alcohol) glass or wine or beer per day Alcohol Habits Answer Date Recorded How often do you have a drin k containing alcohol? Not asked How many drinks containing a lcohol do you have on a typical day when you are drinking? Not asked How often do you have six or more drinks on one occasion? Not asked Comment: glass or wine or beer per day Food Insecurity Answer Date Recorded Within the past 12 months, y ou worried that your food would run out before you got money to buy more. Never true 11/05/2019 Within the past 12 months, t he food you bought just didn't last and you didn't have money to get more. Never true 11/05/2019 Sex Assigned at Date Recorded Male 09/26/2018 1:04 PM E DT Job Start Date Occupation Industry Not on file Not on file Not on file documented as of this encounter Plan of Treatment Upcoming Encounters Date Type Specialty Care Team Description 11/13/2022 Office Visit Internal Medicine Milly Loza MD [address] [place] [address] Health Maintenance Due Date Last Done Comments Cologuard: Ages 45-75 01/18/2004 FOBT: Ages 45-75 01/18/2004 Sigmoidoscopy: Ages 45-75 01/18/2004 COVID-19 Vaccine (3 - Booster for Pfizer series) 10/01/2020 08/06/2020, 07/16/2020 Depression Screening, Annual for Pts 12 and Over 11/10/2021 11/10/2020 Influenza Vaccine (FLU shot) (#1) 2021 01/24/2021, 12/19/2019, 03/28/2019, Additional history exists Colonoscopy: Ages 45-75 03/24/2022 03/24/2012, 03/24 Colorectal Cancer Screening (Colonoscopy 10 Years; Sigmoidoscopy 5 Years; Cologuard 3 Years; FOBT 1 Year): Ages 45-75 03/24/2022 Diabetes Screening 11/11/2023 11/10/2020, 0 11/02/2019, 02/13/2019, Additional history exists Lipid Panel 11/03/2026 11/03/2021, [...] this topic documented as of this encounter Implants Not on filedocumented as of this encounter Advance Directives Documents on File Type Date Recorded Patient Stain Applicator Expl 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 Advanced Directive Advanced Directive Advanced Directive Advanced Directive Advanced Directive Care Teams Environmental Health Aide Relationship Specialty Start Date End Date Milly Loza MD [address] [place] [address] PCP - General Internal Medicine 08/26/18 documented as of this encounter
--- OUTSIDE RECORDS SUMMARY | 2022-12-05 06:18 | External Medical Summary | Summary of Care ---
Author Name Unknown Organization [facility] Address [address] [place] [address] Phone [phone] Care Team Providers Care Rehabilitation Case Coordinator Name Role Phone Milly Loza MD Primary Care Provider [phone] Reason for Referral * Precert (Within 10 days (routine)) - Pending Review Specialty Diagnoses / Procedures Referred By Controbert t Referred To Contact Cardiac Studies Diagnoses HARRISON (dyspnea on exertion) Chest discomfort Procedures ECHO, STRESS (EXERCISE) W/ PHYSICIAN Milly Loza MD [address] [place] [address] Referral ID Status Reason Start Date Expiration Date Visits Requested Visits Authorized [id number] Pending Review Precert 11/13/[phone] * Ancillary Services (Within 30 days (routine)) - Pending Review Specialty Diagnoses / Procedures Referred By Controbert t Referred To Contact Gastroenterology Diagnoses Special screening for malignant neoplasms, colon Screen for colon cancer Milly Loza MD [address] [place] [address] Referral ID Status Reason Start Date Expiration Date Visits Requested Visits Authorized [id number] Pending Review Ancillary Services Required 11/13/[phone] Question Answer Referral Priority Within 30 days (routine) Comments ALERT: Do not order for pediatric patients (18 years or younger). Cancel off screen and order PEDS GASTROENTEROLOGY CONSULT (Type: 1 visit only-Evaluate and Treat) The following Pt. Instructions are available: - Gastro Colonoscopy Prep Instructions [[id number]] - Gastro Colonoscopy Prep Instructions (Serbian Version) [[id number]] Go to the Pt. Instructions section within the Visit Navigator to access. Colonoscopy ASGE Guidelines: Average risk screening (begin at age 50, 10 year intervals) ADDITIONAL INFORMATION 1. Is the patient on Coumadin? No 2. Is the patient on Pradaxa? No Please schedule in 3 months Reason for Visit * Reason Comments Physical-Exam The pt stated they a re here for a physical exam Encounter Details Date Type Department Care Team Description 11/13/2022 Office Visit General Internal Medicine State Nini Calderón [address] [facility] [place] [address] Milly Loza MD 200 [facility] [place] [address] Routine medical exam*; Chest discomfort; HARRISON (dyspnea on exertion); Dyslipidemia, goal LDL below 100; Vitamin D deficiency; Obesity, Class I, BMI 30.0-34.9 (see actual BMI); Hair loss; Calculus of gallbladder without cholecystitis without obstruction; Hx of skin cancer, basal cell; Special screening for malignant neoplasms, colon; JACQUELYN on CPAP; Screen for colon cancer; Screening for prostate cancer Allergies Active Allergy Reactions Severity Noted Date [...] ROOT) 550 MG CAPS 0 04/08/2019 Active [place]-3 Fatty Acids (FISH OIL) 1000 MG Capsule [...] mRNA, LNP-s, No Pre serve, 2-Dose Series ([employer]) 08/06/2020,07/16/2020 Seasonal Influenza Virus Vac cine, Unspecified [...] on file documented as of this encounter Last Filed Vital Signs Vital Sign Reading Time Taken Comments Blood Pressure 138/82 11/13/2022 8:36 AM EDT Pulse 57 11/13/2022 8:36 AM EDT Temperature 36.7 C (98.1 F) 11/13/2022 8:36 AM ED T Respiratory Rate - - Oxygen Saturation 98% 11/13/2022 8:36 AM EDT Inhaled Oxygen Concentration - - Weight 91.9 kg (202 lb 11.2 oz) 11/13/2022 8:36 AM EDT Height 175 cm (5' 8.9") 11/13/2022 8:36 AM EDT Body Mass Index 30.02 11/13/2022 8:36 AM EDT documented in this encounter Progress Notes * Milly Loza MD - 11/13/2022 8:47 AM EDT SUBJECTIVE: El Suggs is a 62 year old male. Chief Complaint Patient presents with Physical-Exam The pt stated they are here for a physical exam HPI: 62 year old YOmale with PMH significant for bicuhyperlipidemia, JACQUELYN on cpap, hyperkalemia in past,borderline HTN , vitamin-D deficiency presents here for complete physical Since last seen he has been feeling overall ok Acute issue or concern: -SOB and chest tightness with getting around lately . No cough , edema Interim other medical issue : Seen by sleep medicine , doing well on cpap Fam h/o CAD, DM,PVD,stroke: grandparents with stroke, mom with HTN , DAD with HTN and DM Significant fam h/o cancer: no Watching diet : Yes Doing regular exercise: walking and active outside Routine labs: Labs reviewed with patient. Cholesterol better and rest stable Routine HM: Reviewed, discussed and recommended, patient agreed Being followed by Derm: no Being followed by any other specialist: nephro in past Other chronic medical problem: Reviewed and stable Patient Active Problem List Diagnosis Code Obesity, Class I, BMI 30.0-34.9 (see actual BMI) E66.9 Dyslipidemia, goal LDL below 100 E78.5 Calculus of gallbladder K80.20 Vitamin D deficiency E55.9 Hx of skin cancer, basal cell Z85.828 Hair loss L65.9 Current Outpatient Medications Medication Sig Dispense Refill Ascorbic Acid (VITAMIN C) 500 MG CAPS 4-5 times per week Cholecalciferol (VITAMIN D) 25 MCG (1000 UT) TABS CYANOCOBALAMIN (VITAMIN B-12) 500 MCG Sublingual Tablet Néstor, Zingiber officinalis, (NÉSTOR ROOT) 550 MG CAPS [place]-3 Fatty Acids (FISH OIL) 1000 MG Capsule Turmeric Curcumin Oral Capsule Take by mouth. Loratadine 10 MG Oral Capsule Take 1 Capsule by mouth as needed for Rhinitis. No current facility-administered medications for this visit. The patient's medication list was reviewed and updated as needed. Past Medical History: Diagnosis Date Calculus of gallbladder without mention of cholecystitis or obstruction asymptomatic Dyslipidemia, goal LDL below 100 Hx of skin cancer, basal cell 02/13/2013 Hx NMSC - BCC L forearm 2000 Hyperkalemia resolved , unknown cause INFORMATION 05/2016 10 year cardiovascular risk 4.4% Vitamin D deficiency 2010 Social History Socioeconomic History Marital status: Spouse name: Not on file Number of children: 0 Years of education: Not on file Highest education level: Not on file Occupational History Not on file Social Needs Financial resource strain: Not on file Food insecurity Worry: Never true Inability: Never true Transportation needs Medical: Not on file Non-medical: Not on file Tobacco Use Smoking status: Never Smoker Smokeless tobacco: Never Used Substance and Sexual Activity Alcohol use: Yes Comment: glass or wine or beer per day Drug use: No Comment: 2 12 oz cups coffee per day, 3 cups of tea Sexual activity: Yes Comment: no problems Lifestyle Physical activity Days per week: Not on file Minutes per session: Not on file Stress: Not on file Relationships Social connections Talks on phone: Not on file Gets together: Not on file Attends cheondoism service: Not on file Active member of club or organization: Not on file Attends meetings of clubs or organizations: Not on file Relationship status: Not on file Intimate partner violence Fear of current or ex partner: Not on file Emotionally abused: Not on file Physically abused: Not on file Forced sexual activity: Not on file Other Topics Concern Not on file Social History Narrative job: [employer] employer: [employer] education: phd molecular biology service: no hobbies/interests: Gardeing, walking transfusions: No Tattoos- no exercise: yes diet: no orthodox/faith: none marital status: 1988 children: none gc: 0 ggc: 0 pets: none exposure to violence/threats/abuse: no things to improve: no Vaping/E-Cigarette Use Vaping/E-Cigarette Substances Vaping/E-Cigarette Devices Review of patient's allergies indicates: Allergen Reactions Sulfamethoxazole Chills/rigors Nitrofurantoin Chills/rigors Family History Problem Relation Age of Onset Hypertension Mother Alzheimer's disease Mother 94 Other (pulmonary embolism) Mother 94 Diabetes Father prediabetes Hypertension Father Mental Disorder Father dementia- at age 72 Parkinsonism Father similar Cancer None Heart Disorder None Stroke Grandmother (Paternal) Stroke Grandfather (Paternal) Family Status Relation Status Mo Alive Fa at age 83 dementia NONE (Not Specified) NONE (Not Specified) PGMA (Not Specified) PGFA (Not Specified) REVIEW OF SYSTEMS: All 10 systems reviewed and negative except mentioned in HPI OBJECTIVE: BP 138/82 | Pulse 57 | Temp 36.7 C (98.1 F) | Ht 1.75 m (5' 8.9") | Wt 91.9 kg (202 lb 11.2 oz)| SpO2 98% | BMI 30.02 kg/m | BSA 2.11 m PHYSICAL EXAM: General: alert, healthy and no distress Head: Normocephalic, No masses, lesions, tenderness or abnormalities Ears: External ears normal, Canals clear, TM's Normal Oropharynx: no exudate, no erythema, lips, buccal mucosa, and tongue normal and mucous membranes are moist Neck: supple, no adenopathy, no bruits, thyroid normal size, non-tender, without nodularity Lymph: no palpable lymphadenopathy Heart: regular rate & rhythm, no murmurs and no gallops Lungs: chest symmetric with normal AP diameter, no chest deformities noted, no chest wall tenderness, lungs clear to auscultation Pulses: carotid=2/4 w/o bruits Abdomen: abdomen soft, non-tender, normal bowel sounds and no masses or organomegaly Back: back symmetric, no curvature, no costovertebral angle tenderness, range of motion is normal Extremities: less than 2 second capillary refill, no joint deformities, effusion, or inflammation Neuro Exam: alert & oriented x 3 with fluent speech, no focal motor/sensory deficits, gait normal Skin: skin color, texture, turgor are normal, no rashes or significant lesions ASSESSMENT AND PLAN Routine medical exam (Primary) Routine preventive care discussed like - 1.Taking 2-3 serving of dairy product/day, if can't tolerate should take OTC calcium/vit D ( 600 mg/400 IU) twice a day 2.Healthy diet with low carb,low fat and high in fruits and vegetables discussed 3.Regular exercise at least 3/week of 30 min each 4.Wearing suncreen regularly to prevent skin cancer 5.Routine screening tests and vaccines discussed and recommended Chest discomfort - ECHO, STRESS (EXERCISE) W/ PHYSICIAN; Future; Expected date: 11/13/2022 HARRISON (dyspnea on exertion) - CBC; Future; Expected date: 11/13/2022 - ECHO, STRESS (EXERCISE) W/ PHYSICIAN; Future; Expected date: 11/13/2022 Dyslipidemia, goal LDL below 100 - LIPID PANEL WITH DIRECT LDL IF TG IS HIGH; Future; Expected date: 11/13/2022 - COMPREHENSIVE METABOLIC PANEL; Future; Expected date: 11/13/2022 Vitamin D deficiency Obesity, Class I, BMI 30.0-34.9 (see actual BMI) Hair loss Calculus of gallbladder without cholecystitis without obstruction Hx of skin cancer, basal cell Special screening for malignant neoplasms, colon - COLONOSCOPY, GI REFERRAL OP JACQUELYN on CPAP Screen for colon cancer - COLONOSCOPY, GI REFERRAL OP Screening for prostate cancer - PSA; Future; Expected date: 11/13/2022 Follow Up: Return in about 6 months (around 05/16/2023) for recheck. | For: recheck ' Treatment and plan discussed with patient and was given opportunity to ask questions which were answered . Patient verbalized understanding. This note was prepared with the help of fluency and if there is any mis-spelled words , sentences or something which doesn't represent the content of the subject that could be technical error and please refer to the author for clarification. Milly Loza MD 11/13/2022 8:48 AM documented in this encounter Nursing Notes * Tonny Dowling LPN - 11/13/2022 8:36 AM EDT Chief Complaint Patient presents with Physical-Exam The pt stated they are here for a physical exam documented in this encounter Plan of Treatment Scheduled Orders Name Type Priority Associated Diagnoses Orde r Schedule LIPID PANEL WITH DIRECT LDL IF TG IS HIGH Lab Routine Dyslipidemia, goal LDL below 100 Expected: 11/13/2022, Expires: 11/14/2023 COMPREHENSIVE METABOLIC PANEL Lab Routine Dyslipidemia, goal LDL below 100 Expected: 11/13/2022 (Approximate), Expires: 11/13/2023 CBC Lab Routine HARRISON (dyspnea on exertion) Expected: 11/13/2022 (Approximate), Expires: 11/13/2023 PSA Lab Routine Screening for prostate cancer Expected: 11/13/2022 (Approximate), Expires: 11/13/2023 ECHO, STRESS (EXERCISE) W/ PHYSICIAN Echocardiology Routine HARRISON (dyspnea on exertion) Chest discomfort Expected: 11/13/2022, Expires: 12/15/2023 Scheduled Referrals Name Type Priority Associated Diagnoses Orde r Schedule COLONOSCOPY, GI REFERRAL OP Referral Within 30 days (routine) Special screening for malignant neoplasms, colon Screen for colon cancer Ordered: 11/13/2022 Health Maintenance Due Date Last Done Comments [...] Not on filedocumented as of this encounter Visit Diagnoses Diagnosis Routine medical exam- Primary Routine general medical examination at a health care facility Chest discomfort Other chest pain HARRISON (dyspnea on exertion) Other dyspnea and respiratory abnormality Dyslipidemia, goal LDL below 100 Other and unspecified hyperlipidemia Vitamin D deficiency Unspecified vitamin D deficiency Obesity, Class I, BMI 30.0-34.9 (see actual BMI) Obesity, unspecified Hair loss Alopecia, unspecified Calculus of gallbladder without cholecystitis without obstruction Calculus of gallbladder without mention of cholecystitis or obstruction Hx of skin cancer, basal cell Personal history of other malignant neoplasm of skin Special screening for malignant neoplasms, colon JACQUELYN on CPAP Obstructive sleep apnea (adult) (pediatric) Screen for colon cancer Special screening for malignant neoplasms, colon Screening for prostate cancer Special screening for malignant neoplasm of prostate documented in this encounter Care Teams Rehabilitation Case Coordinator Relationship Specialty Start Date End Date Milly Loza MD [address] [place] [address] PCP - General Internal Medicine 08/26/18 documented as of this encounter
--- OUTSIDE RECORDS SUMMARY | 2022-12-05 06:18 | External Medical Summary | Summary of Care ---
Author Name Unknown Organization [facility] Address [address] [place] [place] [place] [address] Phone [phone] Care Team Providers Care Physician Assistant Surgery Name Role Phone Milly Loza MD Primary Care Provider [phone] Reason for Visit * Reason Onset Date Comments Scheduling 11/15/2022 Colonoscopy Encounter Details Date Type Department Care Team Description 11/15/2022 Telephone General Internal Medicine [facility] [address] [facility] [place] [address] Milly Loza MD [address] [place] [address] Scheduling (Colonoscopy ) Allergies Active Allergy Reactions Severity Noted Date Comments Nitrofurantoin Chills/rigors 07/03/2010 Sulfamethoxazole Chills/rigors High 07/03/2010 documented as of this encounter (statuses as of 11/15/2022) Medications Medication Sig Dispensed Refills Start Date End Date Status Ascorbic Acid (VITAMIN C) 500 MG CAPS 4-5 times per week 0 04/08/2019 Active Cholecalciferol (VITAMIN D) 25 MCG (1000 UT) TABS 0 04/08/2019 Active CYANOCOBALAMIN (VITAMIN B-12) 500 MCG Sublingual Tablet 0 04/08/2019 Active Néstor, Zingiber officinalis, (NÉSTOR ROOT) 550 MG CAPS 0 04/08/2019 Active [place]-3 Fatty Acids (FISH OIL) 1000 MG Capsule 0 04/08/2019 Active Turmeric Curcumin Oral Capsule Take by mouth. 0 Active Loratadine 10 MG Oral Capsule Take 1 Capsule by mouth as needed for Rhinitis. 0 04/05/2021 Active documented as of this encounter (statuses as of 11/15/2022) Active Problems Problem Noted Date JACQUELYN on CPAP 11/13/2022 Hair loss 06/01/2016 Hx of skin cancer, basal cell 02/13/2013 Overview: Hx NMSC - BCC L forearm 2000 Obesity, Class I, BMI 30.0-34.9 (see act ual BMI) 02/21/2012 Overview: bmi= 30.56 02/21/12 Vitamin D deficiency 02/21/2012 Dyslipidemia, goal LDL below 100 Calculus of gallbladder Overview: asymptomatic documented as of this encounter (statuses as of 11/15/2022) Resolved Problems Problem Noted Date Resolved Date 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 12/201009/14/2010 Overview: ICD-10 update of inactive term HEMANGIOMA SKIN RIGHT CHEEK 09/14/201011/2012 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 12/201002/13/2013 Overview: ICD-10 update of inactive term Vitamin D deficiency 07/06/2010 02/21/2012 documented as of this encounter (statuses as of 11/15/2022) Immunizations Name Administration Dates Next Due COVID-19 mRNA, LNP-s, No Pre serve, 2-Dose Series ([employer]) 08/06/2020,07/16/2020 Seasonal Influenza Virus Vac cine, Unspecified [...] Miscellaneous Notes * Telephone Encounter - JACQUELYN Ho - 11/15/2022 10:17 AM EDT Colonoscopy Order placed during recent appointment with Milly Loza. No documentation regarding pt scheduling preferences. Please contact pt about scheduling preferences and then route to pool below for scheduling: [facility] SCHEDULING POOL/CLASS [[id number]] Thank you documented in this encounter Plan [...] filedocumented as of this encounter Care Teams Physician Assistant Surgery Relationship Specialty Start Date End Date Milly Loza MD [address] [place] [address] PCP - General Internal Medicine 08/26/18 documented as of this encounter
--- OUTSIDE RECORDS SUMMARY | 2022-12-05 06:18 | External Medical Summary | Summary of Care ---
Author Name Unknown Organization [facility] Address [address] [facility] [place] [address] Phone [phone] Care Team Providers Care Bench Boring Machine Operator Name Role Phone Milly Loza MD Primary Care Provider [phone] Reason for Visit * Reason Onset Date Comments Health Maintenance 10/04/2022 Encounter Details Date Type Department Care Team Description 10/04/2022 Telephone General Internal Medicine [facility] [address] [place] [place] [address] Milly Loza MD [address] [place] [address] Health Maintenance Allergies Active Allergy Reactions Severity Noted Date Comments Nitrofurantoin Chills/rigors 07/03/2010 Sulfamethoxazole Chills/rigors High 07/03/2010 documented as of this encounter (statuses as of 10/04/2022) Medications Medication Sig Dispensed Refills Start Date End Date Status Ascorbic Acid (VITAMIN C) 500 MG CAPS 4-5 times per week 0 04/08/2019 Active Cholecalciferol (VITAMIN D) 25 MCG (1000 UT) TABS 0 04/08/2019 Active CYANOCOBALAMIN (VITAMIN B-12) 500 MCG Sublingual Tablet 0 04/08/2019 Active Néstor, Zingiber officinalis, (NÉSTOR ROOT) 550 MG CAPS 0 04/08/2019 Active [place]-3 Fatty Acids (FISH OIL) 1000 MG Capsule 0 04/08/2019 Active Turmeric Curcumin Oral Capsule Take by mouth. 0 Active documented as of this encounter (statuses as of 10/04/2022) Active Problems Problem Noted Date Hair loss 06/01/2016 Hx of skin cancer, basal cell 02/13/2013 Overview: Hx NMSC - BCC L forearm 2000 Obesity, Class I, BMI 30.0-34.9 (see act ual BMI) 02/21/2012 Overview: bmi= 30.56 02/21/12 Vitamin D deficiency 02/21/2012 Dyslipidemia, goal LDL below 100 Calculus of gallbladder Overview: asymptomatic documented as of this encounter (statuses as of 10/04/2022) Resolved Problems Problem Noted Date Resolved Date 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 12/201009/14/2010 Overview: ICD-10 update of inactive term HEMANGIOMA SKIN RIGHT CHEEK 09/14/201011/2012 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 12/201002/13/2013 Overview: ICD-10 update of inactive term Vitamin D deficiency 07/06/2010 02/21/2012 documented as of this encounter (statuses as of 10/04/2022) Immunizations Name Administration Dates Next Due COVID-19 mRNA, LNP-s, No Pre serve, 2-Dose Series ([employer]) 08/06/2020,07/16/2020 Seasonal Influenza Virus Vac cine, Unspecified [...] encounter Miscellaneous Notes * Telephone Encounter - Mary Downs LPN - 10/04/2022 3:00 PM EDT Care Gaps Comprehensive Care Outreach Last Office/Telemedicine Visit: 11/10/2021 (in office), Visit date not found (telemedicine) Next Office Visit: 11/13/2022 Hemoglobin AIC Results: Lab Results Component Value Date/Time HEMOGLOBIN A1C - KARTHIKEYAN 5.2 09/30/2018 07:45 AM Reviewed Health Maintenance below: Health Maintenance Topic Date Due COVID-19 Vaccine (3 - Pfizer series) 10/01/2020 Depression Screening, Annual for Pts 12 and Over 11/10/2021 Colorectal Cancer Screening 03/24/2022 Colon 10 year Care Gap Outreach Action Taken: Left message documented in this encounter Plan of Treatment Upcoming Encounters Date Type Specialty Care Team Description 11/13/2022 Office Visit Internal Medicine Milly Loza MD [address] [place] [address] Health Maintenance Due Date Last Done Comments Cologuard 01/18/2004 Fecal Occult Blood Test 01/18/2004 Sigmoidoscopy 01/18/2004 COVID-19 Vaccine (3 - Pfizer series) 10/01/2020 08/06/2020, 07/16/2020 Depression Screening, Annual for Pts 12 and Over 11/10/2021 11/10/2020 Colonoscopy 03/24/2022 03/24/2012, 03/24/2012 Colorectal Cancer Screening 03/24/2022 Diabetes Screening 11/03/2024 11/03/2021, 0 11/10/2020, 11/02/2019, Additional history exists Lipid Panel 11/03/2026 11/03/2021, 08/0 08/2020, 11/02/2019, Additional history exists DTaP,Tdap,and Td Vaccines (3 - Td or Tdap) 11/10/2030 11/10/2020, 09/18/2010 Zoster Vaccines Completed 02/27/2019, 09/26/2018 Influenza Vaccine (FLU shot) Completed 11/2021, 01/24/2021, 12/19/2019, Additional history exists GARDASIL-HPV IMMUNIZATION SERIES Aged Out No longer [...] filedocumented as of this encounter Care Teams Bench Boring Machine Operator Relationship Specialty Start Date End Date Milly Loza MD [address] [place] [address] [place] [address] PCP - General Internal Medicine 08/26/18 documented as of this encounter
--- OUTSIDE RECORDS SUMMARY | 2022-12-05 06:18 | External Medical Summary | Summary of Care ---
Author Name Unknown Organization [facility] Address [address] [place] [facility] [place] [place] [address] Phone [phone] Care Team Providers Care Digital Advertising Specialist Name Role Phone Milly Loza MD Primary Care Provider [phone] Reason for Visit * Reason Onset Date Comments Scheduling 11/15/2022 Colonoscopy Encounter Details Date Type Department Care Team Description 11/15/2022 Telephone General Internal Medicine [facility] 200 [facility] [address] Milly Loza MD 200 [place] [address] Scheduling (Colonoscopy ) Allergies Active Allergy Reactions [...] ROOT) 550 MG CAPS 0 04/08/2019 Active [place]-3 Fatty Acids (FISH OIL) 1000 MG Capsule [...] mRNA, LNP-s, No Pre serve, 2-Dose Series ([employer]) 08/06/2020,07/16/2020 Seasonal Influenza Virus Vac cine, Unspecified [...] to pool below for scheduling: [facility] SCHEDULING POOL/CLASS [[id number]] Thank you documented in this encounter Plan [...] filedocumented as of this encounter Care Teams Digital Advertising Specialist Relationship Specialty Start Date End Date Milly Loza MD [address] [place] [address] PCP - General Internal Medicine 08/26/18 documented as of this encounter
--- OUTSIDE RECORDS SUMMARY | 2022-12-05 06:18 | External Medical Summary | Summary of Care ---
Author Name Unknown Organization [place] [address] Care Team Providers Care Retail Management Trainee Name Role Phone Milly Loza MD Primary Care Provider [phone] Reason for Visit * Reason Comments Physical-Exam routine physical Encounter Details Date Type Department Care Team Description 11/10/2021 Office Visit General Internal Medicine [facility] [address] [facility] [place] [address] Milly Loza MD [address] [place] [address] Routine medical exam*; Obesity, Class I, BMI 30.0-34.9 (see actual BMI); Dyslipidemia, goal LDL below 100; Vitamin D deficiency; Hx of skin cancer, basal cell; Hair loss; Calculus of gallbladder without cholecystitis without obstruction; History of hyperkalemia; Screening for prostate cancer Allergies Active Allergy Reactions Severity Noted Date Comments Nitrofurantoin Chills/rigors 07/03/2010 Sulfamethoxazole Chills/rigors High 07/03/2010 documented as of this encounter (statuses as of 11/10/2021) Medications Medication Sig Dispensed Refills Start Date End Date Status Ascorbic Acid (VITAMIN C) 500 MG CAPS 4-5 times per week 0 04/08/2019 Active Cholecalciferol (VITAMIN D) 25 MCG (1000 UT) TABS 0 04/08/2019 Active CYANOCOBALAMIN (VITAMIN B-12) 500 MCG Sublingual Tablet 0 04/08/2019 Active Néstor, Zingiber officinalis, (NÉSTOR ROOT) 550 MG CAPS 0 04/08/2019 Active [place]-3 Fatty Acids (FISH OIL) 1000 MG Capsule 0 04/08/2019 Active Turmeric Curcumin Oral Capsule Take by mouth. 0 Active Multiple Minerals (MULTI-MINERALS) TABS 0 04/08/2019 11/10/2021 Discontinued(P atient preference/dis continuation) documented as of this encounter (statuses as of 11/10/2021) Active Problems Problem Noted Date Hair loss 06/01/2016 Hx of skin cancer, basal cell 02/13/2013 Overview: Hx NMSC - BCC L forearm 2000 Obesity, Class I, BMI 30.0-34.9 (see act ual BMI) 02/21/2012 Overview: bmi= 30.56 02/21/12 Vitamin D deficiency 02/21/2012 Dyslipidemia, goal LDL below 100 Calculus of gallbladder Overview: asymptomatic documented as of this encounter (statuses as of 11/10/2021) Resolved Problems Problem Noted Date Resolved Date 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 12/201009/14/2010 Overview: ICD-10 update of inactive term HEMANGIOMA SKIN RIGHT CHEEK 09/14/201011/2012 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 12/201002/13/2013 Overview: ICD-10 update of inactive term Vitamin D deficiency 07/06/2010 02/21/2012 documented as of this encounter (statuses as of 11/10/2021) Immunizations Name Administration Dates Next Due COVID-19 mRNA, LNP-s, No Pre serve, 2-Dose Series ([place]) 08/06/2020,07/16/2020 Seasonal Influenza Virus Vac cine, Unspecified [...] Sign Reading Time Taken Comments Blood Pressure 125/80 11/10/2021 9:13 AM EDT Pulse 72 11/10/2021 8:47 AM EDT Temperature 37 C (98.6 F) 11/10/2021 8:47 AM EDT Respiratory Rate 12 11/10/2021 8:47 AM EDT Oxygen Saturation - - Inhaled Oxygen Concentration - - Weight 97.5 kg (215 lb) 11/10/2021 8:47 AM EDT Height 174 cm (5' 8.5") 11/10/2021 8:47 AM EDT Body Mass Index 32.21 11/10/2021 8:47 AM EDT documented in this encounter Patient Instructions * Patient Instructions* Milly Loza MD - 11/10/2021 9:02 AM EDT BMI (Body Mass Index) is the number obtained by dividing a person's weight in kilograms by his or her height in meters squared. BMI is used in determining obesity. BMI is not used to determine a person's actual percentage of body fat, but it is a good tool to beer cooler weight in terms of what is healthy and unhealthy. It is used to identify adults at increased risk for developing weight related medical problems. Estimated body mass index is 32.21 kg/m as calculated from the following: Height as of this encounter: 1.74 m (5' 8.5"). Weight as of this encounter: 97.5 kg (215 lb). Obesity - BMI 30 kg/m2 to 34.9 kg/mg - Obese individuals are at risk for developing: * Heart disease * Stroke * Diabetes * High Blood Pressure * High Cholesterol * GERD (acid reflux) * Sleep Apnea * Osteoarthritis * Fatty Liver Disease * Certain Types of Cancers * Gout * Gall Bladder Disease - Weight loss has been shown to decrease weight related medical problems. - Each additional 5 unit increase in BMI at/above 25 kg/m2 is linked to a 40% increase in from heart and coronary artery disease. - The lifespan of those with a BMI of 30-35 kg/m2 is reduced by two to four years compared to thosewith a normal BMI. - A 12-week weight management text message program is also available. Go to [employer] and seethe message under '[employer] News' for more information and enrollment. Patient is Instructed to: Diet: * Limit total fat intake to no more than 40 grams per day (low fat diet). * Increase fruits and vegetables to 5 servings per day, combined. * Limited starches (breads, pasta, rice, potatoes, corn, cereals) to 4 servings per day. Avoid Calorie Containing Drinks: * No fruit juices, regular sodas or sweetened drinks. * Water is preferred - 64 ounces per day unless advised of a fluid restriction. * Diet sodas and drinks permitted. Keep Honest, Accurate Food logs: * www.[employer].Bringg * www.[employer]ream [employer].Bringg * If you bite it - write it! Weigh Yourself Weekly: * Morning is best. * Try to do this outside your home. * Have a friend/spouse remind you to weigh yourself, accountability to others helps. Perform 30 minutes of physical activity daily: * Can do all at once or 5 minutes 6 times per day * 8, 000-10,000 steps per day using a pedometer * Make it fun! documented in this encounter Progress Notes * Milly Loza MD - 11/10/2021 9:02 AM EDT SUBJECTIVE: El Suggs is a 61 year old male. Chief Complaint Patient presents with Physical-Exam routine physical HPI: 61 year old YOmale with PMH significant for hyperlipidemia, hyperkalemia , vitamin-D deficiency presents here for complete physical Since last seen he has been feeling overall ok Acute issue or concern: -none Interim other medical issue : None Fam h/o CAD, DM,PVD,stroke: grandparents with stroke, [...] Zingiber officinalis, (NÉSTOR ROOT) 550 MG CAPS [place]-3 Fatty Acids (FISH OIL) 1000 MG Capsule Turmeric Curcumin Oral Capsule Take by mouth. No current facility-administered medications for this visit. [...] file Gets together: Not on file Attends worship service: Not on file Active member of [...] Not on file Social History Narrative job: [employer] employer: [employer] education: phd molecular biology service: no hobbies/interests: Gardeing, walking transfusions: No Tattoos- no exercise: yes diet: no adventism/roman catholic: none marital status: 1989 children: none gc: [...] negative except mentioned in HPI OBJECTIVE: BP 136/80 (BP Site: Left Arm, BP Position: Sitting, BP Cuff Size: Large) | Pulse 72 | Temp 37 C (98.6 F) (Tympanic) | Resp 12 | Ht 1.74 m (5' 8.5") | Wt 97.5 kg (215 lb) | BMI 32.21 kg/m | BSA 2.17 m PHYSICAL EXAM: General: alert, healthy and [...] fluent speech, no focal motor/sensory deficits, gait normal, reflexes normal and symmetric Skin: skin color, texture, turgor are normal, [...] 4.Wearing suncreen regularly to prevent skin cancer 5.Self breast exam monthly 6.Routine screening tests and vaccines discussed and recommended Obesity, Class I, BMI 30.0-34.9 (see actual BMI) Patient counseling on weight management given. Dyslipidemia, goal LDL below 100 - LIPID PANEL WITH DIRECT LDL IF TG IS HIGH; Future; Expected date: 11/06/2022 Patient's 10 year risk of having heart attack is 8.1 % and therefore statins indicated. Pt will call Vitamin D deficiency Hx of skin cancer, basal cell Hair loss Calculus of gallbladder without cholecystitis without obstruction History of hyperkalemia - BASIC METABOLIC PANEL; Future; Expected date: 11/06/2022 Screening for prostate cancer - PSA; Future; Expected date: 11/06/2022 Follow Up: Return in about 1 year (around 11/10/2022) for CPE after labs. | For: CPE after labs Treatment and plan discussed with patient and [...] the author for clarification. Milly Loza MD 11/10/2021 9:04 AM documented in this encounter Nursing Notes * Jose Mackay RN - 11/10/2021 8:45 AM EDT Chief Complaint Patient presents with Physical-Exam routine physical documented in this encounter Plan of Treatment Upcoming Encounters Date Type Specialty Care Team Description 11/13/2022 Office Visit Internal Medicine Milly Loza MD [address] [place] [id number] Scheduled Orders Name Type Priority Associated Diagnoses Orde r Schedule LIPID PANEL WITH DIRECT LDL IF TG IS HIGH Lab Routine Dyslipidemia, goal LDL below 100 Expected: 11/06/2022, Expires: 11/10/2022 BASIC METABOLIC PANEL Lab Routine History of hyperkalemia Expected: 11/06/2022, Expires: 11/10/2022 PSA Lab Routine Screening for prostate cancer Expected: 11/06/2022, Expires: 11/10/2022 Health Maintenance Due Date Last Done Comments Cologuard: Ages 45-75 01/18/2004 FOBT: Ages 45-75 01/18/2004 Sigmoidoscopy: Ages 45-75 01/18/2004 COVID-19 Vaccine (3 - Booster for Pfizer series) 01/06/2021 08/06/2020, 07/16/2020 Depression Screening, Annual for Pts 12 and Over 11/10/2021 11/10/2020 Influenza Vaccine (FLU shot) (#1) 2021 01/24/2021, 12/19/2019, 03/28/2019, Additional history exists Colonoscopy: Ages 45-75 03/24/2022 03/24/2012, 03/24 Colorectal Cancer Screening (Colonoscopy 10 Years; Sigmoidoscopy 5 Years; Cologuard 3 Years; FOBT 1 Year): Ages 45-75 03/24/2022 Diabetes Screening 11/11/2023 11/10/2020, 0 11/02/2019, 02/13/2019, Additional history exists Lipid Panel 11/03/2026 11/03/2021, 0808/2020, 11/02/2019, Additional history exists DTaP,Tdap,and Td Vaccines [...] medical examination at a health care facility Obesity, Class I, BMI 30.0-34.9 (see actual BMI) Obesity, unspecified Dyslipidemia, goal LDL below 100 Other and unspecified hyperlipidemia Vitamin D deficiency Unspecified vitamin D deficiency Hx of skin cancer, basal cell Personal history of other malignant neoplasm of skin Hair loss Alopecia, unspecified Calculus of gallbladder without cholecystitis without obstruction Calculus of gallbladder without mention of cholecystitis or obstruction History of hyperkalemia Personal history of other endocrine, metabolic, and immunity disorders Screening for prostate cancer Special screening for malignant neoplasm of prostate documented in this encounter Advance Directives Documents on File Type Date Recorded Patient Senior Coldfusion Developer Expl 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 Advanced Directive Advanced Directive Advanced Directive Advanced Directive Advanced Directive Care Teams Retail Management Trainee Relationship Specialty Start Date End Date Milly Loza MD [address] [place] [address] PCP - General Internal Medicine 08/26/18 documented as of this encounter
--- OUTSIDE RECORDS SUMMARY | 2022-12-05 06:18 | External Medical Summary | Summary of Care ---
Author Name Unknown Organization [facility] [address] Care Team Providers Care Custody Officer Name Role Phone Milly Loza MD Primary Care Provider [phone] Encounter Details Date Type Department Care Team Description 01/13/2022 Immunization Ancillary Department, [place] [address] [place] [address] [facility] [address] [place] [address] Arrived Allergies Active Allergy Reactions Severity Noted Date Comments Nitrofurantoin Chills/rigors 07/03/2010 Sulfamethoxazole Chills/rigors High 07/03/2010 documented as of this encounter (statuses as of 01/13/2022) Medications Medication Sig Dispensed Refills Start Date End Date Status Ascorbic Acid (VITAMIN C) 500 MG CAPS 4-5 times per week 0 04/08/2019 Active Cholecalciferol (VITAMIN D) 25 MCG (1000 UT) TABS 0 04/08/2019 Active CYANOCOBALAMIN (VITAMIN B-12) 500 MCG Sublingual Tablet 0 04/08/2019 Active Néstor, Zingiber officinalis, (NÉSTOR ROOT) 550 MG CAPS 0 04/08/2019 Active [place]-3 Fatty Acids (FISH OIL) 1000 MG Capsule 0 04/08/2019 Active Turmeric Curcumin Oral Capsule Take by mouth. 0 Active documented as of this encounter (statuses as of 01/13/2022) Active Problems Problem Noted Date Hair loss 06/01/2016 Hx of skin cancer, basal cell 02/13/2013 Overview: Hx NMSC - BCC L forearm 2000 Obesity, Class I, BMI 30.0-34.9 (see act ual BMI) 02/21/2012 Overview: bmi= 30.56 02/21/12 Vitamin D deficiency 02/21/2012 Dyslipidemia, goal LDL below 100 Calculus of gallbladder Overview: asymptomatic documented as of this encounter (statuses as of 01/13/2022) Resolved Problems Problem Noted Date Resolved Date 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 12/201009/14/2010 Overview: ICD-10 update of inactive term HEMANGIOMA SKIN RIGHT CHEEK 09/14/201011/2012 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 12/201002/13/2013 Overview: ICD-10 update of inactive term Vitamin D deficiency 07/06/2010 02/21/2012 documented as of this encounter (statuses as of 01/13/2022) Immunizations Name Administration Dates Next Due COVID-19 mRNA, LNP-s, No Pre serve, 2-Dose Series ([employer]) 08/06/2020,07/16/2020 Seasonal Influenza Virus Vac cine, Unspecified [...] Visit Internal Medicine Milly Loza MD [address] [place] [address] Health Maintenance Due Date Last Done Comments Cologuard: Ages 45-75 01/18/2004 FOBT: Ages 45-75 01/18/2004 Sigmoidoscopy: Ages 45-75 01/18/2004 COVID-19 Vaccine (3 - Booster for Pfizer series) 10/01/2020 08/06/2020, 07/16/2020 Depression Screening, Annual for Pts 12 and Over 11/10/2021 11/10/2020 Influenza Vaccine (FLU shot) (#1) 2021 01/13/2022, 01/24/2021, 12/19/2019, Additional history exists Colonoscopy: Ages 45-75 03/24/2022 [...] Documents on File Type Date Recorded Patient Rooter Operator Expl 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 Advanced Directive Advanced Directive Advanced Directive Advanced Directive Advanced Directive Advanced Directive Care Teams Custody Officer Relationship Specialty Start Date End Date Milly Loza MD [address] [place] [address] PCP - General Internal Medicine 08/26/18 documented as of this encounter
--- OUTSIDE RECORDS SUMMARY | 2022-12-05 06:19 | External Medical Summary ---
Author Name Unknown Address Unknown Organization [id number]:[facility] [place] - [address] [place] [address] Laboratory Report Ordering Provider Test Date Status SAL MARSHALL 11/03/2021 07:59:18 Final Observation Date Value Abnormality Reference (Units ) Status Fasting glucose [Moles/volume] in Serum or Plasma 11/03/2021 07:59:18 93 70-99 (mg/dL) Final Performing Location [facility] [place] - [address] [place] [address]
--- OUTSIDE RECORDS SUMMARY | 2022-12-05 06:19 | External Medical Summary | Summary of Care ---
Author Name Unknown Organization [facility] [address] Care Team Providers Care Java Manager Name Role Phone Milly Loza MD Primary Care Provider [phone] Reason for Visit * Reason Comments Medication Administration Flu and/or Pne umo Inj Encounter Details Date Type Department Care Team Description 12/19/2019 Immunization/In jection Ancillary Department, [address] [facility] [address] [place] [address] Need for prophylactic vaccination and inoculation against influenza* Allergies Active Allergy Reactions Severity Noted Date Comments Nitrofurantoin Chills/rigors 07/03/2010 Sulfamethoxazole Chills/rigors High 07/03/2010 documented as of this encounter (statuses as of 12/19/2019) Medications Medication Sig Dispensed Refills Start Date End Date Status Multiple Minerals (MULTI-MINERALS) TABS 0 04/08/2019 Active Ascorbic Acid (VITAMIN C) 500 MG CAPS 0 04/08/2019 Active Cholecalciferol (VITAMIN D) 25 MCG (1000 UT) TABS 0 04/08/2019 Active CYANOCOBALAMIN (VITAMIN B-12) 500 MCG Sublingual Tablet 0 04/08/2019 Act roman Néstor, Zingiber officinalis, (NÉSTOR ROOT) 550 MG CAPS 0 04/08/2019 Active [place]-3 Fatty Acids (FISH OIL) 1000 MG Capsule 0 04/08/2019 Active documented as of this encounter (statuses as of 12/19/2019) Active Problems Problem Noted Date Hair loss 06/01/2016 Hx of skin cancer, basal cell 02/13/2013 Overview: Hx NMSC - BCC L forearm 2000 Obesity, Class I, BMI 30.0-34.9 (see act ual BMI) 02/21/2012 Overview: bmi= 30.56 02/21/12 Vitamin D deficiency 02/21/2012 Dyslipidemia, goal LDL below 100 Calculus of gallbladder Overview: asymptomatic documented as of this encounter (statuses as of 12/19/2019) Resolved Problems Problem Noted Date Resolved Date 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 12/201009/14/2010 Overview: ICD-10 update of inactive term HEMANGIOMA SKIN RIGHT CHEEK 09/14/201011/2012 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 12/201002/13/2013 Overview: ICD-10 update of inactive term Vitamin D deficiency 07/06/2010 02/21/2012 documented as of this encounter (statuses as of 12/19/2019) Immunizations Name Administration Dates Next Due Seasonal Influenza, Quadriva lent, No Preserve, 6 Mons & Above, IM 12/19/2019 Seasonal Influenza, Quadriva lent, No Preserve, IM 02/15/2018,01/21/2016,01/20/2015 Seasonal Influenza, Trivalen t, with Preserve, 3yr & Above, Split 04/02/2014,01/26/2012 04/02/2015 TDAP (age 11 and older)(Adacel) 09/18/2010 Zoster Vaccine Recombinant (Shingrix) 02/27/2019 ,09/26/2018 documented as of this encounter Social History Tobacco Use Types Packs/Day Years Used Date Never Smoker Smokeless Tobacco: Never Used Alcohol Use Drinks/Week oz/Week Comments Yes glass or wine o r beer per day Food Insecurity Answer Date Recorded Within the past 12 months, y ou worried that your food would run out before you got money to buy more. Never true Within the past 12 months, t he food you bought just didn't last and you didn't have money to get more. Never true Sex Assigned at Date Recorded Male 09/26/2018 1:04 PM E DT Job Start Date Occupation Industry Not on file Not on file Not on file Travel History Travel Start Travel End documented as of this encounter Last Filed Vital Signs Vital Sign Reading Time Taken Comments Blood Pressure - - Pulse - - Temperature 36.8 C (98.2 F) 12/19/2019 11:30 AM E DT Respiratory Rate - - Oxygen Saturation - - Inhaled Oxygen Concentration - - Weight - - Height - - Body Mass Index - - documented in this encounter Patient Instructions * Patient Instructions* Radha Hobson LPN - 12/19/2019 11:30 AM EDT ~~PATIENT INSTRUCTIONS FOR FLU SHOT~~ Possible side effects of influenza vaccine, (flu shot), are usually mild and include: 1. Soreness or redness at injection site 2. Low grade fever 3. Body aches You may use Tylenol/Acetaminophen as needed for these symptoms. LET YOUR DOCTOR KNOW IMMEDIATELY IF YOU HAVE DIFFICULTY BREATHING OR SWALLOWING, EXPERIENCE ITCHINGOF FEET OR HANDS, HAVE SWELLING OF EYES, FACE OR INSIDE OF NOSE. documented in this encounter Progress Notes * Radha Hobson LPN - 12/19/2019 11:30 AM EDT PRE - ADMINISTRATION DOCUMENTATION Are you allergic to latex? No Are you experiencing any cold symptoms or fever? No Have you had Guillain-Owego Syndrome (an illness that causes paralysis) within the last 6 weeks? No Have you had the flu shot in the past? YES Have you ever had a reaction to the flu shot? No Radha Hobson LPN, 12/19/2019 11:30 AM Immunization Administration Documentation Time Out Procedure Performed: Yes Patient Identified (Ask Name/Date of ): Yes Does the patient have a fever greater than 101 degrees today? No Patient allergic to latex? No VFC Stock: No Immunization(s) verified: Yes, Immunization Name: Flu, VIS Sheet(s) given: Yes Verified Side and Site: Yes Verified Shot(s) with Parent(s)/Patient: Yes documented in this encounter Plan of Treatment Upcoming Encounters Date Type Specialty Care Team Description 11/10/2020 Office Visit Internal Medicine Milly Loza MD [address] [facility] [place] [address] [phone] Health Maintenance Due Date Last Done Comments Influenza Vaccine (FLU shot) (#1) 2019 03/28/2019, 03/14/2019, 02/15/2018, Additional history exists DTaP,Tdap,and Td Vaccines (2 - Td) 09/18/2020 09/18/2010 DIABETES SCREEN EVERY 3 YRS-AGE 45 AND ABOVE 11/01/2022 11/02/2019, 02/13/2019, 11/28/2018, Additional history exists LIPID SCREEN EVERY 5 YRS-MEN AGE 35-75 11/01/2024 11/02/2019, 08/27/2018, 06/04/2016, Additional history exists Zoster Vaccines Completed 02/27/2019, 09/26/2018 MENINGOCOCCAL (MENACTRA/MENVEO) Aged Out No longer eligible based on patient's age to complete this topic Pneumococcal Vaccine: Pediatrics (0 to 5 Years) and At-Risk Patients (6 to 64 Years) Aged Out No longer eligible based on patient's age to complete this topic documented as of this encounter Implants Not on filedocumented as of this encounter Visit Diagnoses Diagnosis Need for prophylactic vaccination and inoculation against influenza- Primary documented in this encounter Advance Directives Documents on File Type Date Recorded 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
--- OUTSIDE RECORDS SUMMARY | 2022-12-05 06:19 | External Medical Summary ---
Author Name Unknown Address Unknown Organization [id number] [[facility]] ([id number],,) Laboratory Report Ordering Provider Test Date Status SAL MARSHALL 11/02/2019 07:30:00 Final Observation Date Value Abnormality Reference (Units ) Status Fasting status Patient Ql Reported 11/02/2019 07:31 >8 HOURS (hours) Final Triglyceride 11/02/2019 18:27 72 0-174 (mg/dL) Final Performing Location [facility] [[facility]]([id number],1,,)
--- OUTSIDE RECORDS SUMMARY | 2022-12-05 06:19 | External Medical Summary | Summary of Care ---
Author Name Unknown Organization [place] [address] Care Team Providers Care Artificial Stone Applicator Name Role Phone Milly Loza MD Primary Care Provider [phone] Encounter Details Date Type Department Care Team Description 07/31/2021 Scan Encounter General Internal Medicine [facility] [place] [address] [facility] [place] [address] Milly Loza MD 200 [facility] [place] [address] <No scans attached> Allergies Active Allergy Reactions Severity Noted Date Comments Nitrofurantoin Chills/rigors 07/03/2010 Sulfamethoxazole Chills/rigors High 07/03/2010 documented as of this encounter (statuses as of 08/21/2021) Medications Medication Sig Dispensed Refills Start Date End Date Status Multiple Minerals (MULTI-MINERALS) TABS 0 04/08/2019 Act roman Ascorbic Acid (VITAMIN C) 500 MG CAPS 0 04/08/2019 Active Cholecalciferol (VITAMIN D) 25 MCG (1000 UT) TABS 0 04/08/2019 Active CYANOCOBALAMIN (VITAMIN B-12) 500 MCG Sublingual Tablet 0 04/08/2019 Active Néstor, Zingiber officinalis, (NÉSTOR ROOT) 550 MG CAPS 0 04/08/2019 Active [place]-3 Fatty Acids (FISH OIL) 1000 MG Capsule 0 04/08/2019 Acti ve Turmeric Curcumin Oral Capsule Take by mouth. 0 Active documented as of this encounter (statuses as of 08/21/2021) Active Problems Problem Noted Date Hair loss 06/01/2016 Hx of skin cancer, basal cell 02/13/2013 Overview: Hx NMSC - BCC L forearm 2000 Obesity, Class I, BMI 30.0-34.9 (see act ual BMI) 02/21/2012 Overview: bmi= 30.56 02/21/12 Vitamin D deficiency 02/21/2012 Dyslipidemia, goal LDL below 100 Calculus of gallbladder Overview: asymptomatic documented as of this encounter (statuses as of 08/21/2021) Resolved Problems Problem Noted Date Resolved Date 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 12/201009/14/2010 Overview: ICD-10 update of inactive term HEMANGIOMA SKIN RIGHT CHEEK 09/14/201011/2012 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 12/201002/13/2013 Overview: ICD-10 update of inactive term Vitamin D deficiency 07/06/2010 02/21/2012 documented as of this encounter (statuses as of 08/21/2021) Immunizations Name Administration Dates Next Due COVID-19 mRNA, LNP-s, No Pre serve, 2-Dose Series (ClearMomentum) 08/06/2020,07/16/2020 Seasonal Influenza Virus Vac cine, Unspecified [...] Encounters Date Type Specialty Care Team Description 11/10/2021 Office Visit Internal Medicine Milly Loza MD [address] [place], [place] [id number] Health Maintenance Due Date Last Done Comments Cologuard: Ages 45-75 01/18/2004 FOBT: Ages 45-75 01/18/2004 Sigmoidoscopy: Ages 45-75 01/18/2004 COVID-19 Vaccine (3 - Booster for Pfizer series) 01/06/2021 08/06/2020, 07/16/2020 Depression Screening, Annual for Pts 12 and Over 11/10/2021 11/10/2020 Colonoscopy: Ages 45-75 03/24/2022 03/24/2012, 03/24 Colorectal Cancer Screening (Colonoscopy 10 Years; Sigmoidoscopy 5 Years; Cologuard 3 Years; FOBT 1 Year): Ages 45-75 03/24/2022 DIABETES SCREEN EVERY 3 YRS-AGE 45 AND ABOVE 11/11/2023 11/10/2020, 11/02/2019, 02/13/2019, Additional history exists LIPID SCREEN EVERY 5 YRS-MEN AGE 35-75 11/10/2025 11/10/2020, 11/02/2019, 08/27/2018, Additional history exists DTaP,Tdap,and Td Vaccines (3 - Td or Tdap) 11/10/2030 11/10/2020, 09/18/2010 Zoster Vaccines Completed 02/27/2019, 09/26/2018 Influenza Vaccine (FLU shot) Completed , 12/19/2019, 03/28/2019, Additional history exists GARDASIL-HPV IMMUNIZATION SERIES Aged [...] Documents on File Type Date Recorded Patient Traffic Analysis Technician Expl 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 Advanced Directive Advanced Directive Advanced Directive Care Teams Artificial Stone Applicator Relationship Specialty Start Date End Date Milly Loza MD [address] [place] [id number] PCP - General Internal Medicine 08/26/18 documented as of this encounter
--- OUTSIDE RECORDS SUMMARY | 2022-12-05 06:19 | External Medical Summary ---
Author Name Unknown Address [address] [place] [address] Phone Organization K01:[facility] [address] [place] [address] Laboratory Report Ordering Provider Test Date Status SAL MARSHALL 11/02/2019 07:30:00 Final Observation Date Value Abnormality Reference (Units ) Status BUN 11/02/2019 18:27 9 6-20 (mg/dL) Final Creatinine 11/02/2019 18:27 0.9 0.6-1.2 (mg/ dL) Final E Glom Filt Rate 11/02/2019 18:27 >60.0 >60 Final Performing Location [facility] [address] [address] [place] [address]
--- OUTSIDE RECORDS SUMMARY | 2022-12-05 06:19 | External Medical Summary ---
Author Name Unknown Address Unknown Organization K09:[facility] [place] [address] Laboratory Report Ordering Provider Test Date Status ROLANODJAYNEBETITO 11/10/2020 09:06:23 Final Observation Date Value Abnormality Reference (Units ) Status BUN 11/10/2020 09:06:23 12 6-20 (mg/dL) Final Creatinine 11/10/2020 09:06:23 0.8 0.6-1.2 (mg/dL) Final Glomerular filtration rate/1.73 sq M.predicted [Volume Rate/Area] in Serum, Plasma or Blood by Creatinine-based formula (CKD-EPI) 11/10/2020 09:06:23 >90.0 >=60.0 (mL/min) Final Performing Location [facility] [place] [address]
--- OUTSIDE RECORDS SUMMARY | 2022-12-05 06:19 | External Medical Summary | Summary of Care ---
Author Name Unknown Organization [place] [address] Care Team Providers Care Marketing Strategy Manager Name Role Phone Milly Loza MD Primary Care Provider [phone] Reason for Visit * Reason Comments Physical-Exam CPE- Patient would l perez to discuss labs- MPV was high Encounter Details Date Type Department Care Team Description 11/05/2019 Office Visit General Internal Medicine [facility] [address] [place], [place] [phone] Milly Loza MD [address] [place], [place] [phone] Routine medical exam*; Vitamin D deficiency; Hx of skin cancer, basal cell; Hair loss; Dyslipidemia, goal LDL below 100; Calculus of gallbladder without cholecystitis without obstruction; Screening for diabetes mellitus (DM) Allergies Active Allergy Reactions Severity Noted Date Comments Nitrofurantoin Chills/rigors 07/03/2010 Sulfamethoxazole Chills/rigors High 07/03/2010 documented as of this encounter (statuses as of 11/05/2019) Medications Medication Sig Dispensed Refills Start Date End Date Status Multiple Minerals (MULTI-MINERALS) TABS 0 04/08/2019 Active Ascorbic Acid (VITAMIN C) 500 MG CAPS 0 04/08/2019 Active Cholecalciferol (VITAMIN D) 25 MCG (1000 UT) TABS 0 04/08/2019 Active CYANOCOBALAMIN (VITAMIN B-12) 500 MCG Sublingual Tablet 0 04/08/2019 Active Néstor, Zingiber officinalis, (NÉSTOR ROOT) 550 MG CAPS 0 04/08/2019 Active [place]-3 Fatty Acids (FISH OIL) 1000 MG Capsule 0 04/08/2019 Active Vitamin D, Ergocalciferol, 54056 units Capsule Take 1 Cap by mouth once a week. 0 09/11/2018 11/05/2019 Discontinued documented as of this encounter (statuses as of 11/05/2019) Active Problems Problem Noted Date Hair loss 06/01/2016 Hx of skin cancer, basal cell 02/13/2013 Overview: Hx NMSC - BCC L forearm 2000 Obesity, Class I, BMI 30.0-34.9 (see act ual BMI) 02/21/2012 Overview: bmi= 30.56 02/21/12 Vitamin D deficiency 02/21/2012 Dyslipidemia, goal LDL below 100 Calculus of gallbladder Overview: asymptomatic documented as of this encounter (statuses as of 11/05/2019) Resolved Problems Problem Noted Date Resolved Date 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 12/201009/14/2010 Overview: ICD-10 update of inactive term HEMANGIOMA SKIN RIGHT CHEEK 09/14/201011/2012 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 12/201002/13/2013 Overview: ICD-10 update of inactive term Vitamin D deficiency 07/06/2010 02/21/2012 documented as of this encounter (statuses as of 11/05/2019) Immunizations Name Administration Dates Next Due Seasonal Influenza, Quadriva lent, No Preserve, IM [...] at Date Recorded Male 09/26/2018 1:04 PM EDT Job Start Date Occupation Industry Not on file Not on file Not on file Travel History Travel Start Travel End COVID-19 Exposure Response Date Recorded In the last month, have you been in contact with someone who was confirmed or suspected to have Coronavirus / COVID-19? No / Unsure 11/05/2019 2:35 PM EDT documented as of this encounter Last Filed Vital Signs Vital Sign Reading Time Taken Comments Blood Pressure 126/78 11/05/2019 2:48 PM EDT Pulse 70 11/05/2019 2:48 PM EDT Temperature 36.4 C (97.5 F) 11/05/2019 2:48 PM ED T Respiratory Rate 16 11/05/2019 2:48 PM EDT Oxygen Saturation - - Inhaled Oxygen Concentration - - Weight 94.6 kg (208 lb 9.6 oz) 11/05/2019 2:48 P M EDT Height 174 cm (5' 8.5") 11/05/2019 2:48 PM EDT Body Mass Index 31.26 11/05/2019 2:48 PM EDT documented in this encounter Progress Notes * Milly Loza MD - 11/05/2019 3:12 PM EDT SUBJECTIVE: El Suggs is a 59 year old male. Chief Complaint Patient presents with Physical-Exam CPE- Patient would like to discuss labs- MPV was high HPI: 59 year old YOmale with PMH significant for [...] exercise: walking and active outside Routine labs: Reviewed and stable Routine HM: Reviewed, discussed and recommended, [...] Ascorbic Acid (VITAMIN C) 500 MG CAPS Cholecalciferol (VITAMIN D) 25 MCG (1000 UT) TABS CYANOCOBALAMIN (VITAMIN B-12) 500 MCG Sublingual Tablet Néstor, Zingiber officinalis, (ÉNSTOR ROOT) 550 MG CAPS Multiple Minerals (MULTI-MINERALS) TABS [place]-3 Fatty Acids (FISH OIL) 1000 MG Capsule The patient's medication list was reviewed and updated as needed. Past Medical History: Diagnosis Date Calculus of gallbladder without mention of cholecystitis or obstruction asymptomatic Dyslipidemia, goal LDL below 100 Hx of skin cancer, basal cell 02/13/2013 Hx NMSC - BCC L forearm 2000 INFORMATION 05/2016 10 year cardiovascular risk 4.4% Vitamin D deficiency 2010 Social History Socioeconomic History Marital status: Spouse name: Not on file Number of children: 0 Years of education: Not on file Highest education level: Not on file Occupational History Not on file Social Needs Financial resource strain: Not on file Food insecurity: Worry: Never true Inability: Never true Transportation needs: Medical: Not on file Non-medical: Not on file Tobacco Use Smoking status: Never Smoker Smokeless tobacco: Never Used Substance and Sexual Activity Alcohol use: Yes Comment: glass or wine or beer per day Drug use: No Comment: 2 12 oz cups coffee per day, 3 cups of tea Sexual activity: Yes Comment: no problems Lifestyle Physical activity: Days per week: Not on file Minutes per session: Not on file Stress: Not on file Relationships Social connections: Talks on phone: Not on file Gets together: Not on file Attends sabianism service: Not on file Active member of club or organization: Not on file Attends meetings of clubs or organizations: Not on file Relationship status: Not on file Intimate partner violence: Fear of current or ex partner: Not on file Emotionally abused: Not on file Physically abused: Not on file Forced sexual activity: Not on file Other Topics Concern Not on file Social History Narrative job: [employer] employer: [employer] education: phd molecular biology service: no hobbies/interests: Gardeing, walking transfusions: No Tattoos- no exercise: yes diet: no advent/pentecostalism: none marital status: 1989 children: none gc: 0 ggc: 0 pets: [...] negative except mentioned in HPI OBJECTIVE: BP 126/78 | Pulse 70 | Temp (Src) 97.5 (Temporal Artery) | Resp 16 | Ht 5' 8.5" (1.740m) | Wt 208 lbs 9.6 oz (94.620kg) | BMI 31.26 kg/m | BSA 2.14 m PHYSICAL EXAM: General: alert, healthy and [...] screening tests and vaccines discussed and recommended Vitamin D deficiency Hx of skin cancer, basal cell Stable Hair loss Dyslipidemia, goal LDL below 100 - LIPID PANEL WITH DIRECT LDL IF TRIGLYCERIDE IS ELEVATED; Future; Expected date: 11/04/2020 Calculus of gallbladder without cholecystitis without obstruction Stable Screening for diabetes mellitus (DM) - FASTING PLASMA GLUCOSE; Future; Expected date: 11/04/2020 Follow Up: Return in about 1 year (around 11/04/2020) for CPE after labs. Treatment and plan discussed with patient and [...] the author for clarification. Milly Loza MD 3:12 PM 11/05/2019 documented in this encounter Nursing Notes * Ani Liu LPN - 11/05/2019 2:45 PM EDT Chief Complaint Patient presents with Physical-Exam CPE- Patient would like to discuss labs- MPV was high documented in this encounter Plan of Treatment Upcoming Encounters Date Type Specialty Care Team Description 11/10/2020 Office Visit Internal Medicine Milly Loza MD [address] [place] [address] [phone] Scheduled Orders Name Type Priority Associated Diagnoses Orde r Schedule LIPID PANEL WITH DIRECT LDL IF TRIGLYCERIDE IS ELEVATED Lab Routine Dyslipidemia, goal LDL below 100 Expected: 11/04/2020 (Approximate), Expires: 11/04/2020 FASTING PLASMA GLUCOSE Lab Routine Screening for diabetes mellitus (DM) Expected: 11/04/2020 (Approximate), Expires: 11/04/2020 Health Maintenance Due Date Last Done Comments *DEPRESSION SCREENING,ANNUAL FOR PTS 12 AND OVER 09/29/2019 Influenza Vaccine (FLU shot) (#1) 2019 03/28/2019, [...] medical examination at a health care facility Vitamin D deficiency Unspecified vitamin D deficiency Hx of skin cancer, basal cell Personal history of other malignant neoplasm of skin Hair loss Alopecia, unspecified Dyslipidemia, goal LDL below 100 Other and unspecified hyperlipidemia Calculus of gallbladder without cholecystitis without obstruction Calculus of gallbladder without mention of cholecystitis or obstruction Screening for diabetes mellitus (DM) Screening for diabetes mellitus documented in this encounter Advance Directives Documents on File Type Date Recorded Patient Field Servicer Expl 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
--- OUTSIDE RECORDS SUMMARY | 2022-12-05 06:19 | External Medical Summary | Summary of Care ---
Author Name Unknown Organization [place] [address] Care Team Providers Care Geological Engineer Name Role Phone Milly Loza MD Primary Care Provider [phone] Encounter Details Date Type Department Care Team Description 04/29/2019 Scan Encounter Unspecified Department <No scans attached> Allergies Active Allergy Reactions Severity Noted Date Comments Nitrofurantoin Chills/rigors 07/03/2010 Sulfamethoxazole Chills/rigors High 07/03/2010 documented as of this encounter (statuses as of 05/04/2019) Medications Medication Sig Dispensed Refills Start Date End Date Status Vitamin D, Ergocalciferol, 50304 units Capsule Take 1 Cap by mouth once a week. 0 09/11/2018 Active documented as of this encounter (statuses as of 05/04/2019) Active Problems Problem Noted Date Hair loss 06/01/2016 Hx of skin cancer, basal cell 02/13/2013 Overview: Hx NMSC - BCC L forearm 2000 Obesity, Class I, BMI 30.0-34.9 (see act ual BMI) 02/21/2012 Overview: bmi= 30.56 02/21/12 Vitamin D deficiency 02/21/2012 Dyslipidemia, goal LDL below 100 Calculus of gallbladder Overview: asymptomatic documented as of this encounter (statuses as of 05/04/2019) Resolved Problems Problem Noted Date Resolved Date 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 12/201009/14/2010 Overview: ICD-10 update of inactive term HEMANGIOMA SKIN RIGHT CHEEK 09/14/201011/2012 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 12/201002/13/2013 Overview: ICD-10 update of inactive term Vitamin D deficiency 07/06/2010 02/21/2012 documented as of this encounter (statuses as of 05/04/2019) Immunizations Name Administration Dates Next Due Seasonal [...] Travel End documented as of this encounter Plan of Treatment Upcoming Encounters Date Type Specialty Care Team Description 08/07/2019 Office Visit Internal Medicine Milly Loza MD [address] [place] [address] [phone] Health Maintenance Due Date Last Done Comments Influenza Vaccine (FLU shot) (#1) 2018 02/15/2018, 01/21/2016, 01/20/2015, Additional history exists DTaP,Tdap,and Td Vaccines (2 - Td) 09/18/2020 09/18/2010 DIABETES SCREEN EVERY 3 YRS-AGE 45 AND ABOVE 02/13/2022 02/13/2019, 11/28/2018, 09/30/2018, Additional history exists LIPID SCREEN EVERY 5 YRS-MEN AGE 35-75 08/28/2023 08/27/2018, 06/04/2016, 02/22/2012, Additional history exists Zoster Vaccines Completed 02/27/2019, [...] Documents on File Type Date Recorded Patient Membership Counselor Expl 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
--- OUTSIDE RECORDS SUMMARY | 2022-12-05 06:19 | External Medical Summary | Summary of Care ---
Author Name Unknown Organization [place] [address] Care Team Providers Care Architectural Technician Name Role Phone Milly Loza MD Primary Care Provider [phone] Encounter Details Date Type Department Care Team Description 12/17/2019 Scan Encounter Unspecified Department <No scans attached> Allergies Active Allergy Reactions Severity Noted Date Comments Nitrofurantoin Chills/rigors 07/03/2010 Sulfamethoxazole Chills/rigors High 07/03/2010 documented as of this encounter (statuses as of 12/18/2019) Medications Medication Sig Dispensed Refills Start Date End Date Status Multiple Minerals (MULTI-MINERALS) TABS 0 04/08/2019 Active Ascorbic Acid (VITAMIN C) 500 MG CAPS 0 04/08/2019 Active Cholecalciferol (VITAMIN D) 25 MCG (1000 UT) TABS 0 04/08/2019 Active CYANOCOBALAMIN (VITAMIN B-12) 500 MCG Sublingual Tablet 0 04/08/2019 Act roman Néstor, Zingiber officinalis, (NÉSTOR ROOT) 550 MG CAPS 0 04/08/2019 Active [place]-3 Fatty Acids (FISH OIL) 1000 MG Capsule 0 04/08/2019 Active documented as of this encounter (statuses as of 12/18/2019) Active Problems Problem Noted Date Hair loss 06/01/2016 Hx of skin cancer, basal cell 02/13/2013 Overview: Hx NMSC - BCC L forearm 2000 Obesity, Class I, BMI 30.0-34.9 (see act ual BMI) 02/21/2012 Overview: bmi= 30.56 02/21/12 Vitamin D deficiency 02/21/2012 Dyslipidemia, goal LDL below 100 Calculus of gallbladder Overview: asymptomatic documented as of this encounter (statuses as of 12/18/2019) Resolved Problems Problem Noted Date Resolved Date 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 12/201009/14/2010 Overview: ICD-10 update of inactive term HEMANGIOMA SKIN RIGHT CHEEK 09/14/201011/2012 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 12/201002/13/2013 Overview: ICD-10 update of inactive term Vitamin D deficiency 07/06/2010 02/21/2012 documented as of this encounter (statuses as of 12/18/2019) Immunizations Name Administration Dates Next Due Seasonal [...] Visit Internal Medicine Milly Loza MD [address] [facility] [place] [address] Health Maintenance Due Date Last [...] Documents on File Type Date Recorded Patient Home Health Care Case Manager Expl 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
--- OUTSIDE RECORDS SUMMARY | 2022-12-05 06:19 | External Medical Summary | Summary of Care ---
Author Name Unknown Organization [place] [address] Care Team Providers Care Bee Producer Name Role Phone Milly Loza MD Primary Care Provider [phone] Reason for Visit * Reason Comments FYI Encounter Details Date Type Department Care Team Description 10/29/2019 Telephone General Internal Medicine [facility] [address] [place], [place] [phone] Milly Loza MD 200 [place], [place] [phone] FYI Allergies Active Allergy Reactions Severity Noted Date Comments Nitrofurantoin Chills/rigors 07/03/2010 Sulfamethoxazole Chills/rigors High 07/03/2010 documented as of this encounter (statuses as of 10/29/2019) Medications Medication Sig Dispensed Refills Start Date End Date Status Vitamin D, Ergocalciferol, 13668 units Capsule Take 1 Cap by mouth once a week. 0 09/11/2018 Active documented as of this encounter (statuses as of 10/29/2019) Active Problems Problem Noted Date Hair loss 06/01/2016 Hx of skin cancer, basal cell 02/13/2013 Overview: Hx NMSC - BCC L forearm 2000 Obesity, Class I, BMI 30.0-34.9 (see act ual BMI) 02/21/2012 Overview: bmi= 30.56 02/21/12 Vitamin D deficiency 02/21/2012 Dyslipidemia, goal LDL below 100 Calculus of gallbladder Overview: asymptomatic documented as of this encounter (statuses as of 10/29/2019) Resolved Problems Problem Noted Date Resolved Date 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 12/201009/14/2010 Overview: ICD-10 update of inactive term HEMANGIOMA SKIN RIGHT CHEEK 09/14/201011/2012 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 12/201002/13/2013 Overview: ICD-10 update of inactive term Vitamin D deficiency 07/06/2010 02/21/2012 documented as of this encounter (statuses as of 10/29/2019) Immunizations Name Administration Dates Next Due Seasonal [...] Travel End documented as of this encounter Miscellaneous Notes * Telephone Encounter - Annemarie Vang OSA - 10/29/2019 11:37 AM EDT Checked chart for lab orders documented in this encounter Plan of Treatment Upcoming Encounters Date Type Specialty Care Team Description 11/02/2019 Laboratory Laboratory [facility] [address] [place] [address] [phone] 11/05/2019 Office Visit Internal Medicine Milly Loza MD [address] [place] [address] [phone] Health Maintenance Due Date Last Done Comments *DEPRESSION SCREENING,ANNUAL FOR PTS 12 AND OVER 09/29/2019 Influenza Vaccine (FLU shot) (#1) 2019 03/14/2019, 02/15/2018, 01/21/2016, Additional history exists DTaP,Tdap,and Td Vaccines (2 [...] Documents on File Type Date Recorded Patient Technical Staff Engineer Expl 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
--- OUTSIDE RECORDS SUMMARY | 2022-12-05 06:19 | External Medical Summary ---
Author Name Unknown Address Unknown Organization K01:[facility] [address] [place] [address] Laboratory Report Ordering Provider Test Date Status SAL MARSHALL 11/10/2020 09:06:23 Final Observation Date Value Abnormality Reference (Units ) Status PSA 11/10/2020 09:06:23 0.42 <4.10 (ng/ mL) Final Performing Location [facility] [address] [place] [address]
--- OUTSIDE RECORDS SUMMARY | 2022-12-05 06:19 | External Medical Summary ---
Author Name Unknown Address Unknown Organization K01:[facility] [address] [place] [address] Laboratory Report Ordering Provider Test Date Status SAL MARSHALL 11/10/2020 09:06:23 Final Observation Date Value Abnormality Reference (Units ) Status Triglyceride 11/10/2020 09:06:23 84 <=174 ( mg/dL) Final Performing Location [facility] [address] [place] [address]
--- OUTSIDE RECORDS SUMMARY | 2022-12-05 06:19 | External Medical Summary ---
Author Name Unknown Address Unknown Organization K01:[facility] [address] [place] [address] Laboratory Report Ordering Provider Test Date Status JAYNE MARSHALLALI 11/03/2021 07:59:18 Final Observation Date Value Abnormality Reference (Units ) Status Triglyceride 11/03/2021 07:59:18 86 <=174 ( mg/dL) Final Performing Location [facility] [address] [place] [address]
--- OUTSIDE RECORDS SUMMARY | 2022-12-05 06:19 | External Medical Summary | Summary of Care ---
Author Name Unknown Organization [facility] Address [place] [address] Care Team Providers Care Older Adult Social Work Specialist Name Role Phone Milly Loza MD Primary Care Provider [phone] Encounter Details Date Type Department Care Team Description 01/11/2021 Scan Encounter Unspecified Department <No scans attached> Allergies Active Allergy Reactions Severity Noted Date Comments Nitrofurantoin Chills/rigors 07/03/2010 Sulfamethoxazole Chills/rigors High 07/03/2010 documented as of this encounter (statuses as of 01/12/2021) Medications Medication Sig Dispensed Refills Start Date End Date Status Multiple Minerals (MULTI-MINERALS) TABS 0 04/08/2019 Act roman Ascorbic Acid (VITAMIN C) 500 MG CAPS 0 04/08/2019 Active Cholecalciferol (VITAMIN D) 25 MCG (1000 UT) TABS 0 04/08/2019 Active CYANOCOBALAMIN (VITAMIN B-12) 500 MCG Sublingual Tablet 0 04/08/2019 Active Néstor, Zingiber officinalis, (NÉSTOR ROOT) 550 MG CAPS 0 04/08/2019 Active [place]-3 Fatty Acids (FISH OIL) 1000 MG Capsule 0 04/08/2019 Acti ve Turmeric Curcumin Oral Capsule Take by mouth. 0 Active documented as of this encounter (statuses as of 01/12/2021) Active Problems Problem Noted Date Hair loss 06/01/2016 Hx of skin cancer, basal cell 02/13/2013 Overview: Hx NMSC - BCC L forearm 2000 Obesity, Class I, BMI 30.0-34.9 (see act ual BMI) 02/21/2012 Overview: bmi= 30.56 02/21/12 Vitamin D deficiency 02/21/2012 Dyslipidemia, goal LDL below 100 Calculus of gallbladder Overview: asymptomatic documented as of this encounter (statuses as of 01/12/2021) Resolved Problems Problem Noted Date Resolved Date 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 12/201009/14/2010 Overview: ICD-10 update of inactive term HEMANGIOMA SKIN RIGHT CHEEK 09/14/201011/2012 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 12/201002/13/2013 Overview: ICD-10 update of inactive term Vitamin D deficiency 07/06/2010 02/21/2012 documented as of this encounter (statuses as of 01/12/2021) Immunizations Name Administration Dates Next Due COVID-19 mRNA, LNP-s, No Pre serve, 2-Dose Series (Julep) 08/06/2020,07/16/2020 Influenza Virus Vaccine, Uns pecified Formulation 03/14/2019 Seasonal Influenza, Quadriva lent, No [...] Encounters Date Type Specialty Care Team Description 01/24/2021 Immunization Ancillary Sp, Flu Shot Clinic [address] [facility] [place] [address] [phone] 11/10/2021 Office Visit Internal Medicine Milly Loza MD [address] [facility] [place] [address] [phone] Health Maintenance Due Date Last Done Comments Influenza Vaccine (FLU shot) (#1) 2020 12/19/2019, 03/28/2019, 03/14/2019, Additional history exists DIABETES SCREEN EVERY 3 YRS-AGE 45 AND ABOVE 11/11/2023 11/10/2020, 11/02/2019, 02/13/2019, Additional history exists LIPID SCREEN EVERY 5 YRS-MEN AGE 35-75 11/10/2025 11/10/2020, 11/02/2019, 08/27/2018, Additional history exists DTaP,Tdap,and Td Vaccines (3 - Td) 11/10/2030 11/10/2020, 09/18/2010 Zoster Vaccines Completed 02/27/2019, 09/26/2018 COVID-19 Vaccine Completed 08/06/2020, 07/16/2020 MENINGOCOCCAL (MENACTRA/MENVEO) Aged Out No longer eligible [...] Documents on File Type Date Recorded Patient Folder Machine Adjuster Expl 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 Advanced Directive Advanced Directive Advanced Directive
--- OUTSIDE RECORDS SUMMARY | 2022-12-05 06:19 | External Medical Summary | Summary of Care ---
Author Name Unknown Organization [place] [address] Care Team Providers Care Founder Ceo & President Name Role Phone Milly Loza MD Primary Care Provider Encounter Details Date Type Department Care Team Description 11/02/2021 External Data Patient Risk Medial Allergies Active Allergy Reactions Severity Noted Date [...] ROOT) 550 MG CAPS 0 04/08/2019 Active [place]-3 Fatty Acids (FISH OIL) 1000 MG [...] mRNA, LNP-s, No Pre serve, 2-Dose Series (Vita Products) 08/06/2020,07/16/2020 Seasonal Influenza Virus Vac cine, Unspecified [...] Visit Internal Medicine Milly Loza MD [address] [place], [place] [id number] Health Maintenance Due Date Last Done Comments [...] Documents on File Type Date Recorded Patient Adaptive Physical Education Teacher Expl 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 Advanced Directive Advanced Directive Advanced Directive Advanced Directive Care Teams Founder Ceo & President Relationship Specialty Start Date End Date Milly Loza MD [address] [place] [address] PCP - General Internal Medicine 08/26/18 documented as of this encounter
--- OUTSIDE RECORDS SUMMARY | 2022-12-05 06:19 | External Medical Summary | Summary of Care ---
Author Name Unknown Organization [place] [address] Care Team Providers Care Wire Rope Sales Representative Name Role Phone Milly Loza MD Primary Care Provider [phone] Encounter Details Date Type Department Care Team Description 07/27/2020 Scan Encounter Unspecified Department <No scans attached> Allergies Active Allergy Reactions Severity Noted Date Comments Nitrofurantoin Chills/rigors 07/03/2010 Sulfamethoxazole Chills/rigors High 07/03/2010 documented as of this encounter (statuses as of 08/01/2020) Medications Medication Sig Dispensed Refills Start Date End Date Status Multiple Minerals (MULTI-MINERALS) TABS 0 04/08/2019 Active Ascorbic Acid (VITAMIN C) 500 MG CAPS 0 04/08/2019 Active Cholecalciferol (VITAMIN D) 25 MCG (1000 UT) TABS 0 04/08/2019 Active CYANOCOBALAMIN (VITAMIN B-12) 500 MCG Sublingual Tablet 0 04/08/2019 Act roman Néstor, Zingiber officinalis, (NÉSTOR ROOT) 550 MG CAPS 0 04/08/2019 Active [place]-3 Fatty Acids (FISH OIL) 1000 MG Capsule 0 04/08/2019 Active documented as of this encounter (statuses as of 08/01/2020) Active Problems Problem Noted Date Hair loss 06/01/2016 Hx of skin cancer, basal cell 02/13/2013 Overview: Hx NMSC - BCC L forearm 2000 Obesity, Class I, BMI 30.0-34.9 (see act ual BMI) 02/21/2012 Overview: bmi= 30.56 02/21/12 Vitamin D deficiency 02/21/2012 Dyslipidemia, goal LDL below 100 Calculus of gallbladder Overview: asymptomatic documented as of this encounter (statuses as of 08/01/2020) Resolved Problems Problem Noted Date Resolved Date 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 12/201009/14/2010 Overview: ICD-10 update of inactive term HEMANGIOMA SKIN RIGHT CHEEK 09/14/201011/2012 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 12/201002/13/2013 Overview: ICD-10 update of inactive term Vitamin D deficiency 07/06/2010 02/21/2012 documented as of this encounter (statuses as of 08/01/2020) Immunizations Name Administration Dates Next Due Seasonal [...] Recorded Male 09/26/2018 1:04 PM E DT documented as of this encounter Plan of Treatment Upcoming Encounters Date Type Specialty Care Team Description 11/10/2020 Office Visit Internal Medicine Milly Loza MD [address] [facility] [address] [phone] Health Maintenance Due Date Last Done Comments DTaP,Tdap,and Td Vaccines (2 - Td) 09/18/2020 09/18/2010 DIABETES SCREEN EVERY 3 YRS-AGE 45 AND ABOVE 11/01/2022 11/02/2019, 02/13/2019, 11/28/2018, Additional history exists LIPID SCREEN EVERY 5 YRS-MEN AGE 35-75 11/01/2024 11/02/2019, 08/27/2018, 06/04/2016, Additional history exists Zoster Vaccines Completed 02/27/2019, 09/26/2018 Influenza Vaccine (FLU shot) Completed 03/2020, 03/28/2019, 03/14/2019, Additional history exists MENINGOCOCCAL (MENACTRA/MENVEO) Aged Out No longer eligible [...] Documents on File Type Date Recorded Patient Slitting And Shipping Supervisor Expl 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
--- OUTSIDE RECORDS SUMMARY | 2022-12-05 06:19 | External Medical Summary | Summary of Care ---
Author Name Unknown Organization [facility] Address [place] [address] Care Team Providers Care Railroad Car Repairman Name Role Phone Milly Loza MD Primary Care Provider [phone] Reason for Visit * Reason Onset Date Comments Physical-Exam voices no concer ns Immunizations 11/10/2020 Encounter Details Date Type Department Care Team Description 11/10/2020 Office Visit General Internal Medicine [facility] [address] [facility] [place] [address] Milly Loza MD 200 [facility] [place] [address] [phone] Routine medical exam*; Dyslipidemia, goal LDL below 100; Calculus of gallbladder without cholecystitis without obstruction; Vitamin D deficiency; Hair loss; Hx of skin cancer, basal cell; Obesity, Class I, BMI 30.0-34.9 (see actual BMI); Screening for prostate cancer; Screening for diabetes mellitus (DM); Need for prophylactic vaccination with tetanus-diphtheria (Td); Hyperkalemia Allergies Active Allergy Reactions Severity Noted Date Comments Nitrofurantoin Chills/rigors 07/03/2010 Sulfamethoxazole Chills/rigors High 07/03/2010 documented as of this encounter (statuses as of 12/04/2020) Medications Medication Sig Dispensed Refills Start Date End Date Status Multiple Minerals (MULTI-MINERALS) TABS 0 04/08/2019 Act roman Ascorbic Acid (VITAMIN C) 500 MG CAPS 0 04/08/2019 Active Cholecalciferol (VITAMIN D) 25 MCG (1000 UT) TABS 0 04/08/2019 Active CYANOCOBALAMIN (VITAMIN B-12) 500 MCG Sublingual Tablet 0 04/08/2019 Active Néstor, Zingiber officinalis, (NÉSTOR ROOT) 550 MG CAPS 0 04/08/2019 Active [place]-3 Fatty Acids (FISH OIL) 1000 MG Capsule 0 04/08/2019 Acti ve Turmeric Curcumin Oral Capsule Take by mouth. 0 Active documented as of this encounter (statuses as of 12/04/2020) Active Problems Problem Noted Date Hair loss 06/01/2016 Hx of skin cancer, basal cell 02/13/2013 Overview: Hx NMSC - BCC L forearm 2000 Obesity, Class I, BMI 30.0-34.9 (see act ual BMI) 02/21/2012 Overview: bmi= 30.56 02/21/12 Vitamin D deficiency 02/21/2012 Dyslipidemia, goal LDL below 100 Calculus of gallbladder Overview: asymptomatic documented as of this encounter (statuses as of 12/04/2020) Resolved Problems Problem Noted Date Resolved Date 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 12/201009/14/2010 Overview: ICD-10 update of inactive term HEMANGIOMA SKIN RIGHT CHEEK 09/14/201011/2012 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 12/201002/13/2013 Overview: ICD-10 update of inactive term Vitamin D deficiency 07/06/2010 02/21/2012 documented as of this encounter (statuses as of 12/04/2020) Immunizations Name Administration Dates Next Due COVID-19 mRNA, LNP-s, No Pre serve, 2-Dose Series (EverCloud) 08/06/2020,07/16/2020 Influenza Virus Vaccine, Uns pecified Formulation [...] Sign Reading Time Taken Comments Blood Pressure 128/82 11/10/2020 8:22 AM EDT Pulse 68 11/10/2020 8:22 AM EDT Temperature 35.8 C (96.5 F) 11/10/2020 8:22 AM ED T Respiratory Rate 16 11/10/2020 8:22 AM EDT Oxygen Saturation - - Inhaled Oxygen Concentration - - Weight 97.8 kg (215 lb 9.6 oz) 11/10/2020 8:22 A M EDT Height 174 cm (5' 8.5") 11/10/2020 8:22 AM EDT Body Mass Index 32.31 11/10/2020 8:22 AM EDT documented in this encounter Progress Notes * Milly Loza MD - 11/10/2020 8:28 AM EDT SUBJECTIVE: El Suggs is a 59 year old male. Chief Complaint Patient presents with Physical-Exam voices no concerns Immunizations HPI: 60 year old YOmale with PMH significant for [...] exercise: walking and active outside Routine labs: due Routine HM: Reviewed, discussed and recommended, patient [...] Current Outpatient Medications Medication Sig Dispense Refill Turmeric Curcumin Oral Capsule Take by mouth. Ascorbic Acid (VITAMIN C) 500 MG CAPS Cholecalciferol (VITAMIN D) 25 MCG (1000 UT) TABS CYANOCOBALAMIN (VITAMIN B-12) 500 MCG Sublingual Tablet Néstor, Zingiber officinalis, (NÉSTOR ROOT) 550 MG CAPS Multiple Minerals (MULTI-MINERALS) TABS [place]-3 Fatty Acids (FISH OIL) 1000 MG Capsule [...] file Gets together: Not on file Attends sabianist service: Not on file Active member of [...] Not on file Social History Narrative job: [employer] employer: [employer] education: phd molecular biology service: no hobbies/interests: Gardeing, walking transfusions: No Tattoos- no exercise: yes diet: no druze/amish: none marital status: 1989 children: none gc: [...] negative except mentioned in HPI OBJECTIVE: BP 128/82 | Pulse 68 | Temp 35.8 C (96.5 F) | Resp 16 | Ht 1.74 m (5' 8.5") | Wt 97.8 kg (215 lb 9.6 oz) | BMI 32.31 kg/m | BSA 2.17 m PHYSICAL EXAM: [...] screening tests and vaccines discussed and recommended Dyslipidemia, goal LDL below 100 - LIPID PANEL WITH DIRECT LDL IF TG IS HIGH; Future; Expected date: 11/10/2021 - LIPID PANEL WITH DIRECT LDL IF TG IS HIGH; Future; Expected date: 11/10/2020 Stable Continue current treatment as directed Calculus of gallbladder without cholecystitis without obstruction Vitamin D deficiency Hair loss Hx of skin cancer, basal cell Obesity, Class I, BMI 30.0-34.9 (see actual BMI) Stable Continue current treatment as directed Screening for prostate cancer - PSA; Future; Expected date: 11/10/2020 Screening for diabetes mellitus (DM) - GLUCOSE, FASTING PLASMA; Future; Expected date: 11/10/2021 Need for prophylactic vaccination with tetanus-diphtheria (Td) - TETANUS-DIPHTHERIA, AGE 7 AND OLDER Hyperkalemia - BASIC METABOLIC PANEL; Future; Expected date: 11/10/2020 Follow Up: Return in about 1 year (around 11/10/2021) for CPE after labs. | For: CPE [...] the author for clarification. Milly Loza MD 11/10/2020 8:28 AM * Gerri Cueto LPN - 11/10/2020 8:20 AM EDT Chief Complaint Patient presents with Physical-Exam voices no concerns Immunization Administration Documentation Time Out Procedure Performed: Yes Patient Identified (Ask Name/Date of ): Yes Does the patient have a fever greater than 101 degrees today? No Patient allergic to latex? No VFC Stock: No Immunization(s) verified: Yes, Immunization Name: Td (Adult Preservative Free), VIS Sheet(s) given:Yes Verified Side and Site: Yes Verified Shot(s) with Parent(s)/Patient: Yes TD covered under Medicare Part D, prescription order pended for physician to sign. Gerri Cueto LPN documented in this encounter Plan of Treatment Upcoming Encounters Date Type Specialty Care Team Description 11/10/2021 Office Visit Internal Medicine Milly Loza MD [address] [place] [address] [phone] Scheduled Orders Name Type Priority Associated Diagnoses Orde r Schedule LIPID PANEL WITH DIRECT LDL IF TG IS HIGH Lab Routine Dyslipidemia, goal LDL below 100 Expected: 11/10/2021, Expires: 11/10/2021 GLUCOSE, FASTING PLASMA Lab Routine Screening for diabetes mellitus (DM) Expected: 11/10/2021 (Approximate), Expires: 11/10/2021 Health Maintenance Due Date Last Done Comments [...] Not on filedocumented as of this encounter Results * PSA (11/10/2020 9:06 AM EDT) PSA 0.42 <4.10 ng/mL [facility] Specimen Blood - Venous blood specime n (specimen) [facility] [address] [place] [address] * BASIC METABOLIC PANEL (11/10/2020 9:06 AM EDT) BUN 12 6 - 20 mg/dL [facility] 56-02 Creatinine 0.8 0.6 - 1.2 mg/dL [facility] 56-02 Estimated Glomerular Filtration Rate >90.0Comment:If patient is , multiply estimated GFR by 1.159. >=60.0 mL/min [facility] 56-02 Sodium 143 135 - 146 mmol/L [facility] 56-02 Potassium 4.5 3.5 - 5.1 mmol/L [facility] [place] 56-02 Chloride 108(H) 98 - 107 mmol/L [facility] 56-02 CO2 24 22 - 32 mmol/L [facility] 56-02 Anion Gap 11 7 - 15 mmol/L [facility] 56-02 Glucose 92 70 - 120 mg/dL [facility] 56-02 Calcium 9.6 8.4 - 10.2 mg/dL [facility] 56-02 Specimen Blood - Venous blood specime n (specimen) [facility] [place] 56-[address] [place] [address] * LIPID PANEL WITH DIRECT LDL IF TG IS HIGH (11/10/2020 9:06 AM EDT) Triglycerides 84 Comment: Triglyceride Reference Ranges (mg/dL): <150 Acceptable 150-174 Borderline high 175-499 High >=500 Very high <=174 mg/dL [facility] Cholesterol 208(H) Comment: Total Cholesterol Reference Ranges (mg/dL): <200 Desirable 200-239 Borderline high >=240 High <200 mg/dL [facility] HDL Cholesterol 61 Comment: HDL Cholesterol Reference Ranges (mg/dL): >=60 High (Desirable) <50 Low (Undesirable) For Females <40 Low (Undesirable) For Males >39 mg/dL [facility] Non-HDL Cholesterol 147 Comment: Non-HDL Cholesterol Reference Range (mg/dL): <100 Target level for high risk ASCVD patient <130 Optimal for general population 130-159 Near optimal for general population 160-189 Borderline High 190-219 High >=220 Very High <=159 mg/dL [facility] LDL Cholesterol 130(H) Comment: LDL Cholesterol Reference Ranges (mg/dL): <70 Target level for high risk ASCVD patient <100 Optimal for general population 100-129 Near optimal for general population 130-159 Borderline high 160-189 High >=190 Very high <=129 mg/dL [facility] Specimen Blood - Venous blood specime n (specimen) [facility] [address] [place] [address] documented in this encounter Visit Diagnoses Diagnosis Routine medical exam- Primary Routine general medical examination at a health care facility Dyslipidemia, goal LDL below 100 Other and unspecified hyperlipidemia Calculus of gallbladder without cholecystitis without obstruction Calculus of gallbladder without mention of cholecystitis or obstruction Vitamin D deficiency Unspecified vitamin D deficiency Hair loss Alopecia, unspecified Hx of skin cancer, basal cell Personal history of other malignant neoplasm of skin Obesity, Class I, BMI 30.0-34.9 (see actual BMI) Obesity, unspecified Screening for prostate cancer Special screening for malignant neoplasm of prostate Screening for diabetes mellitus (DM) Screening for diabetes mellitus Need for prophylactic vaccination with tetanus-diphtheria (Td) Hyperkalemia Hyperpotassemia documented in this encounter Advance Directives Documents on File Type Date Recorded Patient Valet Service Attendant Expl 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 Advanced Directive Advanced Directive
--- OUTSIDE RECORDS SUMMARY | 2022-12-05 06:19 | External Medical Summary ---
Author Name Unknown Address [facility] [place] [address] Phone Organization K01:[place] [address] [facility] [address] Laboratory Report Ordering Provider Test Date Status SAL MARSHALL 11/02/2019 07:30:00 Final Observation Date Value Abnormality Reference (Units ) Status WBC, Total 11/02/2019 18:51 5.96 4.00-10.80 (K/uL) Final RBC 11/02/2019 18:51 5.20 4.50-5.25 (M/uL) Final Hemoglobin 11/02/2019 18:51 15.3 14.0-16.8 (g/dL) Final HCT 11/02/2019 18:51 46.4 40.0-48.4 (%) Final MCV 11/02/2019 18:51 89.2 82.0-99.5 (fL) Final MCH 11/02/2019 18:51 29.4 27.0-34.0 (pg) Final MCHC 11/02/2019 18:51 33.0 32.0-36.0 (g/dL) Final RDW 11/02/2019 18:51 13.0 11.5-15.5 (%) Final Platelets 11/02/2019 18:51 235 140-400 (K/uL) Final MPV 11/02/2019 18:51 11.3 Above high normal 6.6-11.1 (fL) Final nRBC/100 WBC Bld Auto-Rto 11/02/2019 18:51 0 0 (/100 WBCs) Final Performing Location [place] [address] [facility] [address]
--- OUTSIDE RECORDS SUMMARY | 2022-12-05 06:19 | External Medical Summary | Summary of Care ---
Author Name Unknown Organization [place] [address] Care Team Providers Care Lease Operator Name Role Phone Milly Loza MD Primary Care Provider [phone] Reason for Visit * Reason Comments Outpatient Testing Encounter Details Date Type Department Care Team Description 11/03/2021 Laboratory [facility], [place] [address] [place] [address] [place] [address], [place] [id number] Dyslipidemia, goal LDL below 100; Screening for diabetes mellitus (DM) Allergies Active Allergy Reactions Severity Noted Date Comments Nitrofurantoin Chills/rigors 07/03/2010 Sulfamethoxazole Chills/rigors High 07/03/2010 documented as of this encounter (statuses as of 11/03/2021) Medications Medication Sig Dispensed Refills Start Date End Date Status Multiple Minerals (MULTI-MINERALS) TABS 0 04/08/2019 Act roman Ascorbic Acid (VITAMIN C) 500 MG CAPS 0 04/08/2019 Active Cholecalciferol (VITAMIN D) 25 MCG (1000 UT) TABS 0 04/08/2019 Active CYANOCOBALAMIN (VITAMIN B-12) 500 MCG Sublingual Tablet 0 04/08/2019 Active Néstor, Zingiber officinalis, (NÉSTOR ROOT) 550 MG CAPS 0 04/08/2019 Active [place]-3 Fatty Acids (FISH OIL) 1000 MG Capsule 0 04/08/2019 Acti ve Turmeric Curcumin Oral Capsule Take by mouth. 0 Active documented as of this encounter (statuses as of 11/03/2021) Active Problems Problem Noted Date Hair loss 06/01/2016 Hx of skin cancer, basal cell 02/13/2013 Overview: Hx NMSC - BCC L forearm 2000 Obesity, Class I, BMI 30.0-34.9 (see act ual BMI) 02/21/2012 Overview: bmi= 30.56 02/21/12 Vitamin D deficiency 02/21/2012 Dyslipidemia, goal LDL below 100 Calculus of gallbladder Overview: asymptomatic documented as of this encounter (statuses as of 11/03/2021) Resolved Problems Problem Noted Date Resolved Date 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 12/201009/14/2010 Overview: ICD-10 update of inactive term HEMANGIOMA SKIN RIGHT CHEEK 09/14/201011/2012 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 12/201002/13/2013 Overview: ICD-10 update of inactive term Vitamin D deficiency 07/06/2010 02/21/2012 documented as of this encounter (statuses as of 11/03/2021) Immunizations Name Administration Dates Next Due COVID-19 mRNA, LNP-s, No Pre serve, 2-Dose Series ([employer]) 08/06/2020,07/16/2020 Seasonal Influenza Virus Vac cine, Unspecified [...] Visit Internal Medicine Milly Loza MD [address] [place] [address] Pending Results Name Type Priority Associated Diagnoses Date /Time LIPID PANEL WITH DIRECT LDL IF TG IS HIGH Lab Routine Dyslipidemia, goal LDL below 100 11/03/2021 7:59 AM EDT GLUCOSE, FASTING PLASMA Lab Routine Screening for diabetes mellitus (DM) 11/03/2021 7:59 AM EDT Health Maintenance Due Date Last Done Comments [...] 11/02/2019, 02/13/2019, Additional history exists Lipid Panel 11/10/2025 11/10/2020, 07/2 10/2019, 08/27/2018, Additional history exists DTaP,Tdap,and Td Vaccines [...] as of this encounter Visit Diagnoses Diagnosis Dyslipidemia, goal LDL below 100 Other and unspecified hyperlipidemia Screening for diabetes mellitus (DM) Screening for diabetes mellitus documented in this encounter Advance Directives Documents on File Type Date Recorded Patient Microfiche Duplicator Expl 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 Advanced Directive Advanced Directive Advanced Directive Advanced Directive Care Teams Lease Operator Relationship Specialty Start Date End Date Milly Loza MD [address] [facility] [place] [address] PCP - General Internal Medicine 08/26/18 documented as of this encounter
--- OUTSIDE RECORDS SUMMARY | 2022-12-05 06:19 | External Medical Summary | Summary of Care ---
Author Name Unknown Organization [facility] Address [place] [address] Care Team Providers Care 3Rd Mate Name Role Phone Milly Loza MD Primary Care Provider [phone] Reason for Visit * Reason Onset Date Comments Medication Administration 01/24/2021 Flu an d/or Pneumo Inj Encounter Details Date Type Department Care Team Description 01/24/2021 Immunization Ancillary [facility] [address] [facility] [place] [id number] Sp, [facility] [address] [facility] [place] [id number] Need for prophylactic vaccination and inoculation against influenza* Allergies Active Allergy Reactions Severity Noted Date Comments Nitrofurantoin Chills/rigors 07/03/2010 Sulfamethoxazole Chills/rigors High 07/03/2010 documented as of this encounter (statuses as of 01/24/2021) Medications Medication Sig Dispensed Refills Start Date End Date Status Multiple Minerals (MULTI-MINERALS) TABS 0 04/08/2019 Act roman Ascorbic Acid (VITAMIN C) 500 MG CAPS 0 04/08/2019 Active Cholecalciferol (VITAMIN D) 25 MCG (1000 UT) TABS 0 04/08/2019 Active CYANOCOBALAMIN (VITAMIN B-12) 500 MCG Sublingual Tablet 0 04/08/2019 Active Néstor, Zingiber officinalis, (NÉSTOR ROOT) 550 MG CAPS 0 04/08/2019 Active [place]-3 Fatty Acids (FISH OIL) 1000 MG Capsule 0 04/08/2019 Acti ve Turmeric Curcumin Oral Capsule Take by mouth. 0 Active documented as of this encounter (statuses as of 01/24/2021) Active Problems Problem Noted Date Hair loss 06/01/2016 Hx of skin cancer, basal cell 02/13/2013 Overview: Hx NMSC - BCC L forearm 2000 Obesity, Class I, BMI 30.0-34.9 (see act ual BMI) 02/21/2012 Overview: bmi= 30.56 02/21/12 Vitamin D deficiency 02/21/2012 Dyslipidemia, goal LDL below 100 Calculus of gallbladder Overview: asymptomatic documented as of this encounter (statuses as of 01/24/2021) Resolved Problems Problem Noted Date Resolved Date 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 12/201009/14/2010 Overview: ICD-10 update of inactive term HEMANGIOMA SKIN RIGHT CHEEK 09/14/201011/2012 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 12/201002/13/2013 Overview: ICD-10 update of inactive term Vitamin D deficiency 07/06/2010 02/21/2012 documented as of this encounter (statuses as of 01/24/2021) Immunizations Name Administration Dates Next Due COVID-19 mRNA, LNP-s, No Pre serve, 2-Dose Series (Moving Off Campus) 08/06/2020,07/16/2020 Influenza Virus Vaccine, Uns pecified Formulation [...] on file documented as of this encounter Progress Notes * Tatiana Neville LPN - 01/24/2021 10:06 AM EDT PRE - ADMINISTRATION DOCUMENTATION Are you experiencing any cold symptoms or fever? No Have you had Guillain-Tiffin Syndrome (an illness that causes paralysis) within the last 6 weeks? No Have you had the flu shot in the past? YES Have you ever had a reaction to the flu shot? No Tatiana Neville LPN, 01/24/2021 10:06 AM Immunization Administration Documentation Time Out Procedure [...] Visit Internal Medicine Milly Loza MD [address] [facility], [place] [id number] Health Maintenance Due Date Last Done Comments Influenza Vaccine (FLU shot) (#1) 2020 01/24/2021, 12/19/2019, 03/28/2019, Additional history exists COVID-19 Vaccine (3 - Pfizer booster) 02/06/2021 08/06/2020, 07/16/2020 DIABETES SCREEN EVERY 3 YRS-AGE 45 AND ABOVE 11/11/2023 11/10/2020, 11/02/2019, 02/13/2019, Additional history exists LIPID SCREEN EVERY 5 YRS-MEN AGE 35-75 11/10/2025 11/10/2020, 11/02/2019, 08/27/2018, Additional history exists DTaP,Tdap,and Td Vaccines (3 - Td) 11/10/2030 11/10/2020, 09/18/2010 Zoster Vaccines Completed 02/27/2019, 09/26/2018 MENINGOCOCCAL (MENACTRA/MENVEO) [...] Documents on File Type Date Recorded Patient Media Relations Specialist Expl 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 Advanced Directive Advanced Directive Advanced Directive
--- OUTSIDE RECORDS SUMMARY | 2022-12-05 06:19 | External Medical Summary | Continuity of Care Document ---
Author Name Unknown Organization [place] [address] [address] [facility] [address] [id number] Care Team Providers Care Chief Business Officer Name Role Phone Celestino Cardona Primary Care Physician [phone] Encounter [facility] [id number] Date(s): 04/05/21 - 04/05/21 [facility] [address] [place] [phone] Encounter Diagnosis Skin hemangioma(Discharge Diagnosis) - 04/05/21 Sebaceous hyperplasia of face(Discharge Diagnosis) - 04/05/21 Seborrheic keratoses(Discharge Diagnosis) - 04/05/21 Discharge Disposition: Home or Self Care Attending Physician: MD Nicholas, Miles Abernathy Allergies, Adverse Reactions, Alerts Substance Reaction Severity Status sulfa drugs fever, chills Active Medications Fish Oil oral capsule Start: 06/11/14 16:03:00, 1 cap, PO, Daily, Note to Pharmacy: unknown dose Start Date: 06/11/14 Status: Ordered jena Start: 06/11/14 16:05:00, See Instructions, 1 cap PO 1-2 times per week Start Date: 06/11/14 Status: Ordered loratadine 10 mg oral capsule Start: 04/05/21 8:35:00 EST, 1 cap, PO, 3 x weekly Start Date: 04/05/21 Status: Ordered tumeric Start: 06/11/14 16:06:00, tumeric, See Instructions, 1 cap 1-2 x per week Start Date: 06/11/14 Status: Ordered Vitamin C Start: 06/11/14 16:04:00, See Instructions, 400 mg PO 2-4 x per week Start Date: 06/11/14 Status: Ordered Vitamin D3 1000 intl units oral tablet Start: 03/06/15 16:04:00, See Instructions, 1 tab PO Daily 4-6 times per week Start Date: 06/11/14 Status: Ordered Mental Status 04/05/21 Barriers to Learning one year None evide nt Mandatory Health Literacy Documentation Yes Health Literacy Communication Barriers N ever Problem List Condition Effective Dates Status Health Status Inform ant Actinic Keratosis(Confirmed) Active BCC (basal cell carcinoma of skin)(Confirmed) Active Sleep apnea(Confirmed) Active Diagnosis Diagnosis Type Effective Dates Health Status Clinical Service Informant Sebaceous hyperplasia of face Discharge Diagnosis 04/05/21 Seborrheic keratoses Discharge Diagnosis 04/05/21 Skin hemangioma Discharge Diagnosis 04/05/21 Procedures Procedure Date Related Diagnosis Body Site Status Shave biopsy 2012 Completed Shave biopsy and cauterization of skin 2001 Completed Social History Social History Type Response Smoking Status Never smoked cigaret nilay Sex Male
--- OUTSIDE RECORDS SUMMARY | 2022-12-05 06:19 | External Medical Summary | Summary of Care ---
Author Name Unknown Organization [place] [address] Care Team Providers Care Double Reamer Operator Name Role Phone Milly Loza MD Primary Care Provider [phone] Encounter Details Date Type Department Care Team Description 05/07/2019 Scan Encounter Unspecified Department <No scans attached> Allergies Active Allergy Reactions Severity Noted Date Comments Nitrofurantoin Chills/rigors 07/03/2010 Sulfamethoxazole Chills/rigors High 07/03/2010 documented as of this encounter (statuses as of 05/08/2019) Medications Medication Sig Dispensed Refills Start Date End Date Status Vitamin D, Ergocalciferol, [address] units Capsule Take 1 Cap by mouth once a week. 0 09/11/2018 Active documented as of this encounter (statuses as of 05/08/2019) Active Problems Problem Noted Date Hair loss 06/01/2016 Hx of skin cancer, basal cell 02/13/2013 Overview: Hx NMSC - BCC L forearm 2000 Obesity, Class I, BMI 30.0-34.9 (see act ual BMI) 02/21/2012 Overview: bmi= 30.56 02/21/12 Vitamin D deficiency 02/21/2012 Dyslipidemia, goal LDL below 100 Calculus of gallbladder Overview: asymptomatic documented as of this encounter (statuses as of 05/08/2019) Resolved Problems Problem Noted Date Resolved Date 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 12/201009/14/2010 Overview: ICD-10 update of inactive term HEMANGIOMA SKIN RIGHT CHEEK 09/14/201011/2012 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 12/201002/13/2013 Overview: ICD-10 update of inactive term Vitamin D deficiency 07/06/2010 02/21/2012 documented as of this encounter (statuses as of 05/08/2019) Immunizations Name Administration Dates Next Due Seasonal [...] Visit Internal Medicine Milly Loza MD [address] [place] [address] [phone] Health Maintenance Due Date Last Done Comments [...] Documents on File Type Date Recorded Patient Freelance Court Stenographer Expl 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
--- OUTSIDE RECORDS SUMMARY | 2022-12-05 06:19 | External Medical Summary | Summary of Care ---
Author Name Unknown Organization [place] [address] Care Team Providers Care Fish Egg Packer Name Role Phone Milly Loza MD Primary Care Provider [phone] Encounter Details Date Type Department Care Team Description 06/08/2020 Scan Encounter Unspecified Department <No scans attached> Allergies Active Allergy Reactions Severity Noted Date Comments Nitrofurantoin Chills/rigors 07/03/2010 Sulfamethoxazole Chills/rigors High 07/03/2010 documented as of this encounter (statuses as of 06/09/2020) Medications Medication Sig Dispensed Refills Start Date End Date Status Multiple Minerals (MULTI-MINERALS) TABS 0 04/08/2019 Active Ascorbic Acid (VITAMIN C) 500 MG CAPS 0 04/08/2019 Active Cholecalciferol (VITAMIN D) 25 MCG (1000 UT) TABS 0 04/08/2019 Active CYANOCOBALAMIN (VITAMIN B-12) 500 MCG Sublingual Tablet 0 04/08/2019 Act roman Néstor, Zingiber officinalis, (NÉSTOR ROOT) 550 MG CAPS 0 04/08/2019 Active [place]-3 Fatty Acids (FISH OIL) 1000 MG Capsule 0 04/08/2019 Active documented as of this encounter (statuses as of 06/09/2020) Active Problems Problem Noted Date Hair loss 06/01/2016 Hx of skin cancer, basal cell 02/13/2013 Overview: Hx NMSC - BCC L forearm 2000 Obesity, Class I, BMI 30.0-34.9 (see act ual BMI) 02/21/2012 Overview: bmi= 30.56 02/21/12 Vitamin D deficiency 02/21/2012 Dyslipidemia, goal LDL below 100 Calculus of gallbladder Overview: asymptomatic documented as of this encounter (statuses as of 06/09/2020) Resolved Problems Problem Noted Date Resolved Date 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 12/201009/14/2010 Overview: ICD-10 update of inactive term HEMANGIOMA SKIN RIGHT CHEEK 09/14/201011/2012 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 12/201002/13/2013 Overview: ICD-10 update of inactive term Vitamin D deficiency 07/06/2010 02/21/2012 documented as of this encounter (statuses as of 06/09/2020) Immunizations Name Administration Dates Next Due Seasonal [...] Visit Internal Medicine Milly Loza MD [address] [place] [address] Health Maintenance Due Date Last Done [...] Documents on File Type Date Recorded Patient [place] Expl 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
--- OUTSIDE RECORDS SUMMARY | 2022-12-05 06:20 | External Medical Summary ---
Author Name Unknown Address [facility] [address] [place] [id number] Phone Organization K01:[facility] [address] [place] [id number] Laboratory Report Ordering Provider Test Date Status JAYNE BROCKBETITO 11/28/2018 08:21:00 Final Observation Date Value Abnormality Reference Status BUN 11/28/2018 16:08 9 6-20 Fin al Creatinine 11/28/2018 16:08 0.8 0.6-1.2 Fi nal Performing Location [facility] [address] [facility] [address]
--- OUTSIDE RECORDS SUMMARY | 2022-12-05 06:20 | External Medical Summary | Summary of Care ---
Author Name Unknown [place] [address] Care Team Providers Care Internet Marketing Coordinator Name Role Phone Milly Loza MD Primary Care Provider [phone] Reason for Visit * Reason Comments Outpatient Testing Encounter Details Date Type Department Care Team Description 09/16/2018 Telephone Nephrology 2nd Floor, [place] [address] [place] [address] Bucky Loza MD [address] [place] [address] Outpatient Testing Allergies Active Allergy Reactions Severity Noted Date Comments Nitrofurantoin Chills/rigors 07/03/2010 Sulfamethoxazole Chills/rigors High 07/03/2010 documented as of this encounter (statuses as of 09/16/2018) Medications Medication Sig Dispensed Refills Start Date End Date Status Vitamin D, Ergocalciferol, 97200 units Capsule Take 1 Cap by mouth once a week. 0 09/11/2018 Active documented as of this encounter (statuses as of 09/16/2018) Active Problems Problem Noted Date Hair loss 06/01/2016 Hx of skin cancer, basal cell 02/13/2013 Overview: Hx NMSC - BCC L forearm 2000 Obesity, Class I, BMI 30.0-34.9 (see act ual BMI) 02/21/2012 Overview: bmi= 30.56 02/21/12 Vitamin D deficiency 02/21/2012 Dyslipidemia, goal LDL below 100 Calculus of gallbladder without mention of cholecystitis or obstruction Overview: asymptomatic documented as of this encounter (statuses as of 09/16/2018) Resolved Problems Problem Noted Date Resolved Date 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 12/201009/14/2010 Overview: ICD-10 update of inactive term HEMANGIOMA SKIN RIGHT CHEEK 09/14/201011/2012 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 12/201002/13/2013 Overview: ICD-10 update of inactive term Vitamin D deficiency 07/06/2010 02/21/2012 documented as of this encounter (statuses as of 09/16/2018) Immunizations Name Administration Dates Next Due Seasonal Influenza, Quadrivalent, No Preserve, I M 01/21/2016,01/20/2015 Seasonal Influenza, Trivalen t, with Preserve, 3yr & Above, Split 04/02/2014,01/26/2012 04/02/2015 TDAP (age 11 and older)(Adacel) 09/18/2010 documented as of this encounter Social History Tobacco Use Types Packs/Day Years Used Date Never Smoker Smokeless Tobacco: Never Used Alcohol Use Drinks/Week oz/Week Comments Yes glass or wine o r beer per day Sex Assigned at Date Recorded Not on file Job Start Date Occupation Industry Not on file Not on file Not on file Travel History Travel Start Travel End documented as of this encounter Miscellaneous Notes * Telephone Encounter - Ani Parsons LPN - 09/16/2018 11:44 AM EDT Ordered * Telephone Encounter - Ani Parsons LPN - 09/16/2018 11:35 AM EDT ----- Message from Bucky Loza MD sent at 09/16/2018 11:10 AM EDT ----- Yes it will be helpful. Will do order Bucky Loza MD ===View-only below this line=== ----- Message ----- From: El [place] Sent: 09/15/2018 2:32 PM EDT To: Bucky Loza MD Subject: Urinalysis Would it be helpful to have the urinalysis done prior to my upcoming appointment, so that hopefullyyou could have the results at hand during the appointment itself? Please reply to this message by Either [facility] or home phone is fine. documented in this encounter Plan of Treatment Upcoming Encounters Date Type Specialty Care Team Description 09/17/2018 Office Visit Nephrology Bucky Loza MD [address] [place] [address] [phone] 09/26/2018 Office Visit Internal Medicine Milly Loza MD [address] [place], [place] [id number] Scheduled Orders Name Type Priority Associated Diagnoses Orde r Schedule URINE W/ MICROSCOPIC Lab Routine Hyperkalemia Ordered: 09/16/2018 Health Maintenance Due Date Last Done Comments *DEPRESSION SCREENING, ANNUAL FOR PTS 18 AND OVER 05/01/2014 DTaP,Tdap,and Td Vaccines (2 - Td) 09/18/2020 09/18/2010 DIABETES SCREEN EVERY 3 YRS-AGE 45 AND ABOVE 09/11/2021 09/11/2018, 09/10/2018, 08/27/2018, Additional history exists LIPID SCREEN EVERY 5 YRS-MEN AGE 35-75 08/28/2023 08/27/2018, 06/04/2016, 02/22/2012, Additional history exists Influenza Vaccine (FLU shot) Completed 01/2018, 01/21/2016, 01/20/2015, Additional history exists MENINGOCOCCAL (MENACTRA) Aged Out No longer eligible based on patient's age to complete this topic documented as of this encounter Implants Not on filedocumented as of this encounter Visit Diagnoses Diagnosis Hyperkalemia- Primary Hyperpotassemia documented in this encounter Advance Directives Documents on File Type Date Recorded Patient Nurse Wound Care Expl anation Advanced Directive Advanced Directive Advanced Directive Advanced Directive Advanced Directive Advanced Directive Advanced Directive Advanced Directive
--- OUTSIDE RECORDS SUMMARY | 2022-12-05 06:20 | External Medical Summary | Summary of Care ---
Author Name Unknown Organization [place] [address] Care Team Providers Care Master Naval Parachutist Name Role Phone Milly Loza MD Primary Care Provider [phone] Reason for Visit * Reason Comments Test Results Encounter Details Date Type Department Care Team Description 12/02/2018 Telephone Nephrology 2nd Floor, [place] [address] [place] [address] Bucky Loza MD [address] [place] [address] Test Results Allergies Active Allergy Reactions Severity Noted Date Comments Nitrofurantoin Chills/rigors 07/03/2010 Sulfamethoxazole Chills/rigors High 07/03/2010 documented as of this encounter (statuses as of 12/10/2018) Medications Medication Sig Dispensed Refills Start Date End Date Status Vitamin D, Ergocalciferol, [address]4554 units Capsule Take 1 Cap by mouth once a week. 0 09/11/2018 Active documented as of this encounter (statuses as of 12/10/2018) Active Problems Problem Noted Date Hair loss [...] as of this encounter (statuses as of 12/10/2018) Resolved Problems Problem Noted Date Resolved Date 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 12/201009/14/2010 Overview: ICD-10 update of inactive term HEMANGIOMA SKIN RIGHT CHEEK 09/14/201011/2012 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 12/201002/13/2013 Overview: ICD-10 update of inactive term Vitamin D deficiency 07/06/2010 02/21/2012 documented as of this encounter (statuses as of 12/10/2018) Immunizations Name Administration Dates Next Due Seasonal Influenza, Quadrivalent, No Preserve, I M 01/21/2016,01/20/2015 Seasonal Influenza, Trivalen t, with Preserve, 3yr & Above, Split 04/02/2014,01/26/2012 04/02/2015 TDAP (age 11 and older)(Adacel) 09/18/2010 Zoster Vaccine Recombinant (Shingrix) 09/26/2018 documented as of this encounter Social History [...] Telephone Encounter - Ani Parsons LPN - 12/02/2018 12:10 PM EDT Sent MyG * Telephone Encounter - Ani Parsons LPN - 12/02/2018 12:08 PM EDT ----- Message from Bucky Loza MD sent at 12/01/2018 8:41 AM EDT ----- Labs normal. We can spread to every 2 month if ok with patient documented in this encounter Plan of Treatment Upcoming Encounters Date Type Specialty Care Team Description 02/27/2019 Office Visit Internal Medicine Milly Loza MD [address] [place] [address] [phone] 03/25/2019 Office Visit Nephrology Bucky Loza MD [address] [place] [address] [phone] Health Maintenance Due Date Last Done Comments Influenza Vaccine (FLU shot) (#1) 2018 02/15/2018, 01/21/2016, 01/20/2015, Additional history exists DTaP,Tdap,and Td Vaccines (2 - Td) 09/18/2020 09/18/2010 DIABETES SCREEN EVERY 3 YRS-AGE 45 AND ABOVE 11/28/2021 11/28/2018, 09/30/2018, 09/30/2018, Additional history exists LIPID SCREEN EVERY 5 YRS-MEN AGE 35-75 08/28/2023 08/27/2018, 06/04/2016, 02/22/2012, Additional history exists MENINGOCOCCAL (MENACTRA) Aged Out No longer eligible based on patient's age to complete this topic documented as of this encounter Implants Not on filedocumented as of this encounter Advance Directives Documents on File Type Date Recorded Patient Pier Master Assistant Expl anation Advanced Directive Advanced Directive Advanced Directive Advanced Directive Advanced Directive Advanced Directive Advanced Directive Advanced Directive Advanced Directive
--- OUTSIDE RECORDS SUMMARY | 2022-12-05 06:20 | External Medical Summary | Summary of Care ---
Author Name Unknown Organization [place] [address] Care Team Providers Care Tv Host Name Role Phone Milly Loza MD Primary Care Provider [phone] Reason for Visit * Reason Comments Follow Up 5 month return Immunizations Shingrix Encounter Details Date Type Department Care Team Description 02/27/2019 Office Visit General Internal Medicine [facility] [address] [place], [place] [id number] Milly Loza MD [address] [place], [place] [id number] Dyslipidemia, goal LDL below 100*; History of hyperkalemia; RBC abnormality; Obesity, Class I, BMI 30.0-34.9 (see actual BMI); Calculus of gallbladder without cholecystitis without obstruction; Hair loss; Hx of skin cancer, basal cell; Need for vaccination for zoster; Vitamin D deficiency Allergies Active Allergy Reactions Severity Noted Date Comments Nitrofurantoin Chills/rigors 07/03/2010 Sulfamethoxazole Chills/rigors High 07/03/2010 documented as of this encounter (statuses as of 03/16/2019) Medications Medication Sig Dispensed Refills Start Date End Date Status Vitamin D, Ergocalciferol, 86287 units Capsule Take 1 Cap by mouth once a week. 0 09/11/2018 Active documented as of this encounter (statuses as of 03/16/2019) Active Problems Problem Noted Date Hair loss 06/01/2016 Hx of skin cancer, basal cell 02/13/2013 Overview: Hx NMSC - BCC L forearm 2000 Obesity, Class I, BMI 30.0-34.9 (see act ual BMI) 02/21/2012 Overview: bmi= 30.56 02/21/12 Vitamin D deficiency 02/21/2012 Dyslipidemia, goal LDL below 100 Calculus of gallbladder Overview: asymptomatic documented as of this encounter (statuses as of 03/16/2019) Resolved Problems Problem Noted Date Resolved Date 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 12/201009/14/2010 Overview: ICD-10 update of inactive term HEMANGIOMA SKIN RIGHT CHEEK 09/14/201011/2012 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 12/201002/13/2013 Overview: ICD-10 update of inactive term Vitamin D deficiency 07/06/2010 02/21/2012 documented as of this encounter (statuses as of 03/16/2019) Immunizations Name Administration Dates Next Due Seasonal [...] Sign Reading Time Taken Comments Blood Pressure 128/72 02/27/2019 1:55 PM EST Pulse 60 02/27/2019 1:55 PM EST Temperature 36.1 C (97 F) 02/27/2019 1:55 PM EST Respiratory Rate 16 02/27/2019 1:55 PM EST Oxygen Saturation - - Inhaled Oxygen Concentration - - Weight 97.7 kg (215 lb 6.4 oz) 02/27/2019 1:55 P M EST Height 175 cm (5' 8.9") 02/27/2019 1:55 PM EST Body Mass Index 31.9 02/27/2019 1:55 PM EST documented in this encounter Patient Instructions * Patient Instructions* Kimberly Ferrell LPN - 02/27/2019 1:54 PM EST ~~PATIENT INSTRUCTIONS FOR SHINGRIX VACCINE~~ Possible side effects of Shingrix vaccine, (shingles), are usually mild and can include: 1. Soreness or redness at injection site 2. Low grade fever 3. Body aches You may use a fever / pain reducing medication as needed for these symptoms. LET YOUR DOCTOR KNOW IMMEDIATELY IF YOU HAVE DIFFICULTY BREATHING OR SWALLOWING, EXPERIENCE ITCHINGOF FEET OR HANDS, HAVE SWELLING OF EYES, FACE OR INSIDE OF NOSE. documented in this encounter Progress Notes * Milly Loza MD - 02/27/2019 2:09 PM EST SUBJECTIVE: El Suggs is a 59 year old male. Chief Complaint Patient presents with Follow Up 5 month return Immunizations Shingrix HPI: 59 year old YOmale with PMH significant for hyperlipidemia, hyperkalemia , vitamin-D deficiency presents here for recheck. Since last seen he has been feeling overall ok Acute issue or concern: -asking about KCL level if needs f/u with nephro Interim medical history : Seen by sleep medicine and working with them regarding mask Watching diet and doing regular exercise: Yes Routine labs: Labs reviewed with patient. Good including KCL Routine HM: reviewed and discussed, patient agreed Other chronic medical problem: Reviewed and stable Patient Active Problem List Diagnosis Code Obesity, Class I, BMI 30.0-34.9 (see actual BMI) E66.9 Dyslipidemia, goal LDL below 100 E78.5 Calculus of gallbladder without mention of cholecystitis or obstruction K80.20 Vitamin D deficiency E55.9 Hx of skin cancer, basal cell Z85.828 Hair loss L65.9 Current Outpatient Medications Medication Sig Dispense Refill Vitamin D, Ergocalciferol, 10352 units Capsule Take 1 Cap by mouth once a week. The patient's medication list was reviewed and updated as needed. Past Medical History: Diagnosis Date Calculus of gallbladder without mention of cholecystitis or obstruction asymptomatic Dyslipidemia, goal LDL below 100 Hx of skin cancer, basal cell 02/13/2013 Hx NMSC - BCC L forearm 2001 INFORMATION 05/2016 10 year cardiovascular risk 4.4% Vitamin D deficiency 2011 Social History Socioeconomic History Marital status: Spouse [...] file Gets together: Not on file Attends restorationism service: Not on file Active member of [...] Not on file Social History Narrative job: [employer] employer: [employer] education: phd molecular biology service: no hobbies/interests: Gardeing, walking transfusions: No Tattoos- no exercise: yes diet: no tenriism/sabianist: none marital status: 1988 children: none gc: 0 ggc: 0 pets: none exposure to violence/threats/abuse: no things to improve: no Review of patient's allergies indicates: Allergen Reactions [...] negative except mentioned in HPI OBJECTIVE: BP 128/72 | Pulse 60 | Temp (Src) 97 (Tympanic) | Resp 16 | Ht 5' 8.9" (1.750m) | Wt 215 lbs 6.4 oz(97.705kg) | BMI 31.9 kg/m | BSA 2.18 m PHYSICAL EXAM: General: alert, healthy and no distress Head: Normocephalic, No masses, lesions, tenderness or abnormalities Oropharynx: no exudate, no erythema, lips, buccal mucosa, and tongue normal and mucous membranes are moist Neck: supple, no adenopathy, no bruits, thyroid normal size, non-tender, without nodularity Heart: regular rate & rhythm, no murmurs and no gallops Lungs: chest symmetric with normal AP diameter, no chest deformities noted, no chest wall tenderness, lungs clear to auscultation Abdomen: abdomen soft, non-tender, normal bowel sounds and no masses or organomegaly Extremities: less than 2 second capillary refill, no joint deformities, effusion, or inflammation ASSESSMENT AND PLAN: Dyslipidemia, goal LDL below 100 (Primary) - LIPID PANEL WITH DIRECT LDL IF TRIGLYCERIDE IS ELEVATED; Future; Expected date: 08/28/2019 History of hyperkalemia - BASIC METAB PANEL, BMP; Future; Expected date: 08/28/2019 RBC abnormality - CBC; Future; Expected date: 08/28/2019 Obesity, Class I, BMI 30.0-34.9 (see actual BMI) Calculus of gallbladder without cholecystitis without obstruction asymptomatic Hair loss Hx of skin cancer, basal cell Need for vaccination for zoster - ZOSTER VACCINE RECOMB, 2 DOSE, IM (SHINGRIX); Future; Expected date: 04/28/2019 - ZOSTER VACCINE RECOMB, 2 DOSE, IM (SHINGRIX) Vitamin D deficiency Follow Up: Return in about 6 months (around 08/28/2019) for CPE after labs . Treatment and plan discussed with patient and [...] the author for clarification. Milly Loza MD 2:09 PM 02/27/2019 * Kimberly Ferrell LPN - 02/27/2019 1:54 PM EST Does the patient have active shingles? No If, yes, patient must wait to receive vaccine till after rash is gone. Does the patient have an illness today with a fever more than 101?F? No Has the patient ever had a serious allergic reaction after receiving a vaccination? No Has the patient had a blood test showing they are not immune to Chicken Pox (rare)? No If yes, should get Chicken pox vaccine instead of shingrix. Shingrix Vaccine Information Sheet has been provided. Kimberly Ferrell LPN 02/27/2019 1:54 PM IMMUNIZATION ADMINISTRATION DOCUMENTATION Time Out Procedure Performed: Yes Patient Identified (Ask Name/Date of ): Yes Patient allergic to latex?No VFC Stock? No Immunization(s) verified: Yes, Immunization Name: Shingrix, VIS Sheet(s) given: Yes Verified Side and Site: Yes Verified Shot(s) with Parent(s)/Patient: Yes Shingrix was administered per clinic protocol. Patient received the Shingrix VIS (Vaccine Information Sheet). Kimberly Ferrell LPN, 02/27/2019, 1:54 PM documented in this encounter Nursing Notes * Kimberly Ferrell LPN - 02/27/2019 1:52 PM EST Chief Complaint Patient presents with Follow Up 5 month return Want to update you that he is working on using the CPAP. Has a cardio appt 03/19/19. Wants to discuss his recent potassium levels. Wondering since his potassium levels have been normal for some months if he still needs to keep nephro appt? documented in this encounter Plan of Treatment Upcoming Encounters Date Type Specialty Care Team Description 08/07/2019 Office Visit Internal Medicine Milly Loza MD [address] [place] [address] [phone] Scheduled Orders Name Type Priority Associated Diagnoses Orde r Schedule BASIC METAB PANEL, BMP Lab Routine History of hyperkalemia Expected: 08/28/2019 (Approximate), Expires: 02/27/2020 LIPID PANEL WITH DIRECT LDL IF TRIGLYCERIDE IS ELEVATED Lab Routine Dyslipidemia, goal LDL below 100 Expected: 08/28/2019 (Approximate), Expires: 02/28/2020 CBC Lab Routine RBC abnormality Expected: 08/28/2019 (Approximate), Expires: 02/27/2020 Health Maintenance Due Date Last Done Comments [...] Visit Diagnoses Diagnosis Dyslipidemia, goal LDL below 100- Primary Other and unspecified hyperlipidemia History of hyperkalemia Personal history of other endocrine, metabolic, and immunity disorders RBC abnormality Other abnormality of red blood cells Obesity, Class I, BMI 30.0-34.9 (see actual BMI) Obesity, unspecified Calculus of gallbladder without cholecystitis without obstruction Calculus of gallbladder without mention of cholecystitis or obstruction Hair loss Alopecia, unspecified Hx of skin cancer, basal cell Personal history of other malignant neoplasm of skin Need for vaccination for zoster Need for prophylactic vaccination and inoculation against other viral diseases Vitamin D deficiency Unspecified vitamin D deficiency documented in this encounter Advance Directives Documents on File Type Date Recorded Patient Engineer Assistant Expl 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
--- OUTSIDE RECORDS SUMMARY | 2022-12-05 06:20 | External Medical Summary ---
Author Name Unknown Address [address] [id number] Phone Organization K01:[facility] [address] [id number] Laboratory Report Ordering Provider Test Date Status JAYNE BROCKBETITO 09/30/2018 07:45:00 Final Observation Date Value Abnormality Reference Status 25-OH Vitamin D total 09/30/2018 16:17 34 > 19 Final Performing Location [facility] [address] [facility] [address]
--- OUTSIDE RECORDS SUMMARY | 2022-12-05 06:20 | External Medical Summary ---
Author Name Unknown Address [address] [place] [address] Phone Organization K01:[facility] [address] [id number] Laboratory Report Ordering Provider Test Date Status SAL MARSHALL 09/30/2018 07:45:00 Final Observation Date Value Abnormality Reference Status Hep C Ab 09/30/2018 15:53 NEGATIVE NEG Fin al HCV COMMENT 10/01/2018 08:25 Further HCV penny ntitative testing not performed per protocol. Final Performing Location [facility] [address] [facility] [address]
--- OUTSIDE RECORDS SUMMARY | 2022-12-05 06:20 | External Medical Summary | Summary of Care ---
Author Name [place] [address] Care Team Providers Care Inspector Insulation Name Role Phone Milly Loza MD Primary Care Provider [phone] Reason for Visit * Reason Comments NEW PATIENT hyperkalemia * Evaluate & Treat - Unlimited Visits (Within 10 days (routine)) Status Reason Specialty Diagnoses / Procedures Referred By Contact Referred To Contact Pending Review Specialty Services Required Nephrology Diagnoses Potassium (K) excess Milly Loza MD [address] [place] [address] Encounter Details Date Type Department Care Team Description 09/17/2018 Office Visit Nephrology, [facility] [address] [place] [address] Bucky Loza MD [address] [place] [address] [phone] Hyperkalemia* Allergies Active Allergy Reactions Severity Noted Date Comments Nitrofurantoin Chills/rigors 07/03/2010 Sulfamethoxazole Chills/rigors High 07/03/2010 documented as of this encounter (statuses as of 09/17/2018) Medications Medication Sig Dispensed Refills Start Date End Date Status Vitamin D, Ergocalciferol, 26963 units Capsule Take 1 Cap by mouth once a week. 0 09/11/2018 Active documented as of this encounter (statuses as of 09/17/2018) Active Problems Problem Noted Date Hair loss 06/01/2016 Hx of skin cancer, basal cell 02/13/2013 Overview: Hx NMSC - BCC L forearm 2001 Obesity, Class I, BMI 30.0-34.9 (see act ual BMI) 02/21/2012 Overview: bmi= 30.56 02/21/12 Vitamin D deficiency 02/21/2012 Dyslipidemia, goal LDL below 100 Calculus of gallbladder without mention of cholecystitis or obstruction Overview: asymptomatic documented as of this encounter (statuses as of 09/17/2018) Resolved Problems Problem Noted Date Resolved Date 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 12/201009/14/2010 Overview: ICD-10 update of inactive term HEMANGIOMA SKIN RIGHT CHEEK 09/14/201011/2012 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 12/201002/13/2013 Overview: ICD-10 update of inactive term Vitamin D deficiency 07/06/2010 02/21/2012 documented as of this encounter (statuses as of 09/17/2018) Immunizations Name Administration Dates Next Due Seasonal [...] Sign Reading Time Taken Comments Blood Pressure 138/72 09/17/2018 8:47 AM EDT Pulse 52 09/17/2018 8:47 AM EDT Temperature - - Respiratory Rate - - Oxygen Saturation 98% 09/17/2018 8:47 AM EDT Inhaled Oxygen Concentration - - Weight 94.5 kg (208 lb 6.4 oz) 09/17/2018 8:47 A M EDT Height - - Body Mass Index 31.23 08/26/2018 9:56 AM EDT documented in this encounter Progress Notes * Bucky Loza MD - 09/17/2018 9:14 AM EDT Subjective: El Suggs is a 58 year old male. Chief Complaint Patient presents with NEW PATIENT hyperkalemia HPI: 58/M with excellent health and not on any meds at all here for Chronic Mild hyperkalemia ( 5.2to 5.7) for last 1 year. Back in 2010 and 2011 normal K. No HTN or low BP, DM, Heart Dz. But was told about Bicuspid Aortic valve in the . No ECHO since then. Not on any meds to cause high K. Has Stopped Supplements etc now. Trying low K food now. Otherwise no Symptoms. Slight wt loss with recent diet change. NSAID No Renal Stone No Herbal Medication No Urinary Complaints Yes, Current Outpatient Medications Medication Sig Dispense Refill Vitamin D, Ergocalciferol, 45182 units Capsule Take 1 Cap by mouth once a week. Past Medical History: Diagnosis Date Calculus of gallbladder without mention of cholecystitis or obstruction asymptomatic Dyslipidemia, goal LDL below 100 Hx of skin cancer, basal cell 02/13/2013 Hx NMSC - BCC L forearm 2001 INFORMATION 05/2016 10 year cardiovascular risk 4.4% Vitamin D deficiency 2010 Past Surgical History: Procedure Laterality Date COLONOSCOPY, DIAGNOSTIC (RECTUM) 03/24/2012 COLONOSCOPY FLEXIBLE PROXIMAL DIAGNOSTIC performed by Alok Castaneda MD at ENDOSCOPY [facility] MISCELLANEOUS ORDER age 9 left tibia and fibula ORIF REMOVE TONSILS & ADENOIDS, UNDER 12 age 5 or 5 Review of patient's allergies indicates: Allergen Reactions Sulfamethoxazole Chills/rigors Nitrofurantoin Chills/rigors Family History Problem Relation Age of Onset Hypertension Mother Alzheimer's disease Mother 94 Other (pulmonary embolism) Mother 94 Diabetes Father prediabetes Hypertension Father Mental Disorder Father dementia- at age 72 Parkinsonism Father similar Cancer None Heart Disorder None Stroke Grandmother (Paternal) Stroke Grandfather (Paternal) Family History of Renal Disease No Social History Socioeconomic History Marital status: Spouse name: Not on file Number of children: 0 Years of education: Not on file Highest education level: Not on file Occupational History Not on file Social Needs Financial resource strain: Not on file Food insecurity: Worry: Not on file Inability: Not on file Transportation needs: Medical: Not on file Non-medical: [...] file Gets together: Not on file Attends temple service: Not on file Active member of [...] Not on file Social History Narrative job: [employer] employer: [employer] education: phd molecular biology service: no hobbies/interests: Gardeing, walking transfusions: No Tattoos- no exercise: yes diet: no nondenominational/shinto: none marital status: 1988 children: none gc: 0 ggc: 0 pets: none exposure to violence/threats/abuse: no things to improve: no Review of Systems: Negative 10 systems OBJECTIVE: PHYSICAL EXAM: BP 138/72 | Pulse 52 | Wt 208 lbs 6.4 oz (94.530kg) | BMI 31.23 kg/m | BSA 2.14 m | SaO2 98% General: alert, healthy and no distress Neck: supple, no JVD Heart: regular rate & rhythm, no murmurs and no gallops Lungs: normal respiratory rate and rhythm, lungs clear to auscultation Abdomen: abdomen soft and non-tender Back: back symmetric, no curvature, no costovertebral angle tenderness Extremities: no edema Skin: skin color, texture, turgor are normal, no rashes or significant lesions BP Readings from Last 4 Encounters: 09/17/18 138/72 08/26/18 122/72 05/31/16 120/74 03/14/15 132/82 Wt Readings from Last 4 Encounters: 09/17/18 94.5 kg (208 lb 6.4 oz) 08/26/18 97.4 kg (214 lb 12.8 oz) 05/31/16 98 kg (216 lb) 03/14/15 98.2 kg (216 lb 6.4 oz) Estimated body mass index is 31.23 kg/m as calculated from the following: Height as of 08/26/18: 1.74 m (5' 8.5"). Weight as of this encounter: 94.5 kg (208 lb 6.4 oz). NEPH-FLOW Latest Ref Rng & Units 07/05/2010 02/22/2012 08/27/2018 Bun 6 - 20 mg/dL 12 9 10 Cr 0.6 - 1.2 mg/dL 0.8 0.7 0.9 eGFR >60 mL/min >60.0 >60.0 eGFR >60 >60.0 K 3.5 - 5.1 mmol/L 4.3 4.2 5.5 (H) Hb 14.0 - 16.8 g/dL 15.1 16.2 NEPH-FLOW Latest Ref Rng & Units 09/10/2018 09/11/2018 Bun 6 - 20 mg/dL 9 10 Cr 0.6 - 1.2 mg/dL 0.9 0.9 eGFR >60 mL/min eGFR >60 >60.0 >60.0 K 3.5 - 5.1 mmol/L 5.7 (H) 5.2 (H) Hb 14.0 - 16.8 g/dL ASSESSMENT: Hyperkalemia (Primary) 58/M with excellent health and not on any meds at all here for Chronic Mild hyperkalemia ( 5.2 to 5.7) for last 1 year. Back in 2010 and 2011 normal K. N blood work between 2011 and 2017. No HTN or low BP, DM, Heart Dz. Plasma renin level on low end of normal. Some people can have slightly higher baseline K level as they advance in age due to lower level of Plasma renin . Lower than normal K loss in urine. This can be raised by adding k loosing Diuretic. But at this time his BP is fine. Not enough justification as of now to add Diuretic. But if BP gets higher than 140/90 will add HCTZ/Chlorthalidone to lower BP and K. Avoid NSAID. At this level of mild Hyperkalemia and normal renal function there is no clinical Significance. Did try to reassure. Suggested to avoid Unhealthy high K food but he does not need to avoid all K food as he will not get higher K though. Nothing to suggest RTA==Serum co2 is on high end of normal. Will follow. Renal panel every month to follow the trend. - RENAL FUNCTION PANEL; Future; Expected date: 09/30/2018 - 25-HYDROXY VITAMIN D; Future; Expected date: 09/30/2018 Follow Up: Return in about 6 months (around 03/19/2019). Thanks for consult MD Bucky Wright MD Roshan Mainali, MD documented in this encounter Nursing Notes * Ani Parsons LPN - 09/17/2018 8:47 AM EDT Chief Complaint Patient presents with NEW PATIENT hyperkalemia documented in this encounter Plan of Treatment Upcoming Encounters Date Type Specialty Care Team Description 09/26/2018 Office Visit Internal Medicine Milly Loza MD [address] [facility], [place] [address] [phone] Scheduled Orders Name Type Priority Associated Diagnoses Orde r Schedule RENAL FUNCTION PANEL Lab Routine Hyperkalemia Expected: 09/30/2018 (Approximate), Expires: 10/18/2019 25-HYDROXY VITAMIN D Lab Routine Hyperkalemia Expected: 09/30/2018 (Approximate), Expires: 10/18/2019 Health Maintenance Due Date Last Done Comments [...] Documents on File Type Date Recorded 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
--- OUTSIDE RECORDS SUMMARY | 2022-12-05 06:20 | External Medical Summary ---
Author Name Unknown Address [address] [place] [address] Phone Organization K09:[facility] [address] [place] [address] Laboratory Report Ordering Provider Test Date Status SAL BROCK 09/17/2018 08:27:00 Final Observation Date Value Abnormality Reference Status Color Ur Auto 09/17/2018 08:56 YELLOW YEL Final Clarity, Urine 09/17/2018 08:56 CLEAR CLEAR Final Glucose Ur Strip.auto-nc 09/17/2018 08:56 NEGATIVE NEG Final Bilirubin, Urine 09/17/2018 08:56 NEGATIVE NEG Final Ketones Ur Strip.auto-nc 09/17/2018 08:56 NEGATIVE NEG Final Specific gravity, Urine 09/17/2018 08:56 1.015 1.003-1.030 Final Hemoglobin, qual. UA 09/17/2018 08:56 NEGATIVE NE G Final pH, Urine 09/17/2018 08:56 6.5 5.0-7.5 Fin al Prot Ur Strip.auto-mCnc 09/17/2018 08:56 NEGATIVE NEG Final Urobilinogen Ur Strip.auto-mCnc 09/17/2018 08:56 NORMAL NORM Final Nitrite, Urine 09/17/2018 08:56 NEGATIVE NEG Final Leukocyte Esterase, Urine 09/17/2018 08:56 NEGATIVE NEG Final Bacteria area UrnS HPF 09/17/2018 08:56 0-25 [id number] Final WBC, Urine 09/17/2018 08:56 0-2 U02 Fi nal RBC, Urine 09/17/2018 08:56 0-2 U02 Fi nal Performing Location [facility] [address] [place] [address]
--- OUTSIDE RECORDS SUMMARY | 2022-12-05 06:20 | External Medical Summary | Summary of Care ---
Author Name Unknown Organization [place] [address] Care Team Providers Care Byproducts Maker Name Role Phone Milly Loza MD Primary Care Provider [phone] Reason for Visit * Reason Comments Test Results Encounter Details Date Type Department Care Team Description 08/28/2018 Telephone General Internal Medicine [facility] [address] [place], [place] [phone] Milly Loza MD [address] [facility] [address] [place], [place] [id number] Test Results Allergies Active Allergy Reactions Severity Noted Date Comments Nitrofurantoin Chills/rigors 07/03/2010 Sulfamethoxazole Chills/rigors High 07/03/2010 documented as of this encounter (statuses as of 09/04/2018) Medications Medication Sig Dispensed Refills Start Date End Date Status MULTIVITAL PO TABS 1 TABLET DAILY 1 Tab 0 07/03/2010 Active VITAMIN D (ERGOCALCIFEROL) 01593 UNITS PO CAPSIndications:Vitam in D deficiency 1 capsule weekly 4 Cap 5 03/05/2012 Active VITAMIN C 100 MG PO TABS 400 mg each day 0 Active FISH OIL 1200 MG PO CAPS as directed 0 Active Néstor, Zingiber officinalis, (NÉSTOR ROOT) 550 MG CAPS Take 1 Tab by mouth 2 times a day. 0 08/10/2011 Active Turmeric, Curcuma Longa, POWD Take 1 Cap by mouth 2 times a day. 0 08/29/2011 Active Piperine POWD Takes 1 cap once daily 0 08/26/2018 Active documented as of this encounter (statuses as of 09/04/2018) Active Problems Problem Noted Date Hair loss [...] as of this encounter (statuses as of 09/04/2018) Resolved Problems Problem Noted Date Resolved Date 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 12/201009/14/2010 Overview: ICD-10 update of inactive term HEMANGIOMA SKIN RIGHT CHEEK 09/14/201011/2012 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 12/201002/13/2013 Overview: ICD-10 update of inactive term Vitamin D deficiency 07/06/2010 02/21/2012 documented as of this encounter (statuses as of 09/04/2018) Immunizations Name Administration Dates Next Due Seasonal [...] encounter Miscellaneous Notes * Telephone Encounter - Kimberly Ferrell LPN - 08/28/2018 2:31 PM EDT Called patient. Left message to return call at . * Telephone Encounter - Kimberly Ferrell LPN - 08/28/2018 2:30 PM EDT ----- Message from Milly Loza MD sent at 08/28/2018 11:52 AM EDT ----- Potasium high but he is not on medication Check if taking OTC potassium supplement , if so stop but if not would recheck BMP since it could be lab error cholesterol borderline high but everything else normal which doesn't explain shakes Continue recommendation given in last appoint. documented in this encounter Plan of Treatment Upcoming Encounters Date Type Specialty Care Team Description 09/26/2018 Office Visit Internal Medicine Milly Loza MD 200 [facility] [address] [phone] Health Maintenance Due Date Last Done Comments *DEPRESSION SCREENING, ANNUAL FOR PTS 18 AND OVER 05/01/2014 DTaP,Tdap,and Td Vaccines (2 - Td) 09/18/2020 09/18/2010 DIABETES SCREEN EVERY 3 YRS-AGE 45 AND ABOVE 08/27/2021 08/27/2018, 06/04/2016, 02/22/2012, Additional history exists LIPID SCREEN EVERY 5 [...] Documents on File Type Date Recorded Patient Contracts Representative Expl anation Advanced Directive Advanced Directive Advanced Directive Advanced Directive Advanced Directive Advanced Directive Advanced Directive Advanced Directive
--- OUTSIDE RECORDS SUMMARY | 2022-12-05 06:20 | External Medical Summary ---
Author Name Unknown Address [facility] [address] [phone] Phone Organization K01:[place] [address] [id number] Laboratory Report Ordering Provider Test Date Status SAL MARSHALL 09/11/2018 07:39:00 Final Observation Date Value Abnormality Reference Status BUN 09/11/2018 15:04 10 6-20 Fin al Creatinine 09/11/2018 15:04 0.9 0.6-1.2 Fi nal Performing Location [address] [address]
--- OUTSIDE RECORDS SUMMARY | 2022-12-05 06:20 | External Medical Summary ---
Author Name Unknown Address [address] [place] [address] Phone Organization K01:[place] [address] [id number] Laboratory Report Ordering Provider Test Date Status SAL MARSHALL 09/30/2018 07:45:00 Final Observation Date Value Abnormality Reference Status HIV 1+2 Ab+HIV1 p24 Ag [id number] 09/30/2018 16:02 NONREACTIVE NR Final Performing Location [address] [address]
--- OUTSIDE RECORDS SUMMARY | 2022-12-05 06:20 | External Medical Summary ---
Author Name Unknown Address [facility] [address] [place] [address] [id number] Phone Organization K01:[place] [address] [id number] Laboratory Report Ordering Provider Test Date Status SAL MARSHALL 09/11/2018 07:39:00 Final Observation Date Value Abnormality Reference Status Cortisol 09/11/2018 15:13 10.8 2.5-19.5 Fin al Performing Location [address] [address]
--- OUTSIDE RECORDS SUMMARY | 2022-12-05 06:20 | External Medical Summary | Summary of Care ---
Author Name Unknown Organization [place] [address] Care Team Providers Care Freelance Graphic Designer Name Role Phone Milly Loza MD Primary Care Provider [phone] Reason for Referral * Evaluate & Treat - Unlimited Visits (Within 10 days (routine)) Status Reason Specialty Diagnoses / Procedures Referred By Contact Referred To Contact Pending Review Specialty Services Required Nephrology Diagnoses Potassium (K) excess Milly Loza MD 200 [place] [address] Reason for Visit * Reason Comments Information Encounter Details Date Type Department Care Team Description 09/10/2018 Telephone General Internal Medicine [facility] [address] [place] [address] Milly Loza MD [address] [place] [address] [phone] Information Allergies Active Allergy Reactions Severity Noted Date Comments Nitrofurantoin Chills/rigors 07/03/2010 Sulfamethoxazole Chills/rigors High 07/03/2010 documented as of this encounter (statuses as of 09/11/2018) Medications Medication Sig Dispensed Refills Start Date End Date Status Vitamin D, Ergocalciferol, 46240 units Capsule Take 1 Cap by mouth once a week. 0 09/11/2018 Active MULTIVITAL PO TABS 1 TABLET DAILY 1 Tab 0 07/03/2010 09/10/2018 Discontinued VITAMIN D (ERGOCALCIFEROL) 54336 UNITS PO CAPSIndications:V itamin D deficiency 1 capsule weekly 4 Cap 5 03/05/2012 09/10/2018 Discontinued VITAMIN C 100 MG PO TABS 400 mg each day 0 09/10/2018 Discontin ued FISH OIL 1200 MG PO CAPS as directed 0 09/10/2018 Discontinued Néstor, Zingiber officinalis, (NÉSTOR ROOT) 550 MG CAPS Take 1 Tab by mouth 2 times a day. 0 08/10/2011 09/10/2018 Discontinued Turmeric, Curcuma Longa, POWD Take 1 Cap by mouth 2 times a day. 0 08/29/2011 09/10/2018 Discontinued Piperine POWD Takes 1 cap once daily 0 08/26/2018 09/10/2018 Discontinued documented as of this encounter (statuses as of 09/11/2018) Active Problems Problem Noted Date Hair loss [...] as of this encounter (statuses as of 09/11/2018) Resolved Problems Problem Noted Date Resolved Date 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 12/201009/14/2010 Overview: ICD-10 update of inactive term HEMANGIOMA SKIN RIGHT CHEEK 09/14/201011/2012 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 12/201002/13/2013 Overview: ICD-10 update of inactive term Vitamin D deficiency 07/06/2010 02/21/2012 documented as of this encounter (statuses as of 09/11/2018) Immunizations Name Administration Dates Next Due Seasonal [...] encounter Miscellaneous Notes * Telephone Encounter - Gerri Cueto LPN - 09/11/2018 12:23 PM EDT Called patient. Informed to cont. Vit D and nothing else. Pt. Verbalized understanding and will comply. Vit D added back to med list. * Telephone Encounter - Milly Loza MD - 09/10/2018 5:21 PM EDT Can continue vit d but rest stop until we figure out * Telephone Encounter - Pamela Calero LPN - 09/10/2018 4:44 PM EDT Would that include the vitamin D prescription dose? Advised patient I will call him back if you wish continue vitamin D Removed all supplements from JUN. Thank you Transferred to scheduling to assist with nephrology appt. Thank you * Telephone Encounter - Pamela Calero LPN - 09/10/2018 4:42 PM EDT ----- Message from Milly Loza MD sent at 09/10/2018 3:43 PM EDT ----- Potassium continues to be high . Check strainer tender cortisol at 7-8 am, Reggie/renin ratio and repeat BMP and Mag . Stop all supplement nephro consult for eval documented in this encounter Plan of Treatment Upcoming Encounters Date Type Specialty Care Team Description 09/26/2018 Office Visit [facility] [address] [phone] 10/29/2018 Office Visit Nephrology eMrle Tellez MD [address] [id number] Pending Results Name Type Priority Associated Diagnoses Date /Time REGGIE/RENIN RATIO Lab Routine Potassium (K) excess 09/11/2018 7:39 AM EDT CORTISOL Lab Routine Potassium (K) excess 09/11/2018 7:39 AM EDT BASIC METAB PANEL, BMP Lab Routine Potassium (K) excess 09/11/2018 7:39 AM EDT MAGNESIUM Lab Routine Potassium (K) excess 09/11/2018 7:39 AM EDT Scheduled Orders Name Type Priority Associated Diagnoses Orde r Schedule REGGIE/RENIN RATIO Lab Routine Potassium (K) excess Expected: 09/10/2018 (Approximate), Expires: 09/10/2019 CORTISOL Lab Routine Potassium (K) excess Expected: 09/10/2018 (Approximate), Expires: 09/10/2019 BASIC METAB PANEL, BMP Lab Routine Potassium (K) excess Expected: 09/10/2018 (Approximate), Expires: 09/10/2019 MAGNESIUM Lab Routine Potassium (K) excess Expected: 09/10/2018 (Approximate), Expires: 09/10/2019 Scheduled Referrals Name Type Priority Associated Diagnoses Orde r Schedule NEPHROLOGY REFERRAL OP Referral Within 10 days (routine) Potassium (K) excess Ordered: 09/10/2018 Health Maintenance Due Date Last Done Comments *DEPRESSION SCREENING, ANNUAL FOR PTS 18 AND OVER 05/01/2014 DTaP,Tdap,and Td Vaccines (2 - Td) 09/18/2020 09/18/2010 DIABETES SCREEN EVERY 3 YRS-AGE 45 AND ABOVE 09/10/2021 09/10/2018, 08/27/2018, 06/04/2016, Additional history exists LIPID SCREEN EVERY 5 YRS-MEN AGE 35-75 08/28/2023 08/27/2018, 06/04/2016, 02/22/2012, Additional history exists Influenza Vaccine (FLU shot) Completed 01/2018, 01/21/2016, 01/20/2015, Additional history exists MENINGOCOCCAL (MENACTRA) Aged Out No longer eligible based on patient's age to complete this topic documented as of this encounter Implants Not on filedocumented as of this encounter Visit Diagnoses Diagnosis Potassium (K) excess- Primary Hyperpotassemia documented in this encounter Advance Directives Documents on File Type Date Recorded Patient Pari Mutuel Ticket Cashier Expl anation Advanced Directive Advanced Directive Advanced Directive Advanced Directive Advanced Directive Advanced Directive Advanced Directive Advanced Directive
--- OUTSIDE RECORDS SUMMARY | 2022-12-05 06:20 | External Medical Summary | Summary of Care ---
Author Name Unknown Organization [place] [address] Care Team Providers Care Supervisor Electron Tube Processing Name Role Phone Milly Loza MD Primary Care Provider [phone] Reason for Visit * Reason Comments Follow Up Patient want to disc uss test results recently. Encounter Details Date Type Department Care Team Description 09/26/2018 Office Visit General Internal Medicine [facility] [address] [place], [place] [phone] Milly Loza MD 200 [place], [place] [phone] Borderline systolic HTN*; Impaired fasting glucose; Special screening examination for viral disease; Need for hepatitis C screening test; Need for shingles vaccine Allergies Active Allergy Reactions Severity Noted Date Comments Nitrofurantoin Chills/rigors 07/03/2010 Sulfamethoxazole Chills/rigors High 07/03/2010 documented as of this encounter (statuses as of 10/05/2018) Medications Medication Sig Dispensed Refills Start Date End Date Status Vitamin D, Ergocalciferol, 65075 units Capsule Take 1 Cap by mouth once a week. 0 09/11/2018 Active documented as of this encounter (statuses as of 10/05/2018) Active Problems Problem Noted Date Hair loss [...] as of this encounter (statuses as of 10/05/2018) Resolved Problems Problem Noted Date Resolved Date 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 12/201009/14/2010 Overview: ICD-10 update of inactive term HEMANGIOMA SKIN RIGHT CHEEK 09/14/201011/2012 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 12/201002/13/2013 Overview: ICD-10 update of inactive term Vitamin D deficiency 07/06/2010 02/21/2012 documented as of this encounter (statuses as of 10/05/2018) Immunizations Name Administration Dates Next Due Seasonal Influenza, Quadrivalent, No Preserve, I M 01/21/2016,01/20/2015 Seasonal Influenza, Trivalen t, with Preserve, 3yr & Above, Split 04/02/2014,01/26/2012 04/02/2015 TDAP (age 11 and older)(Adacel) 09/18/2010 Zoster Vaccine Recombinant (Shingrix) 09/26/2018 documented as of this encounter Social History Tobacco Use Types Packs/Day Years Used Date Never Smoker Smokeless Tobacco: Never Used Tobacco Cessation:Counseling Given: Yes Alcohol Use Drinks/Week oz/Week Comments Yes glass [...] Sign Reading Time Taken Comments Blood Pressure 122/84 09/26/2018 1:05 PM EDT Pulse 66 09/26/2018 1:05 PM EDT Temperature 36.1 C (97 F) 09/26/2018 1:05 PM EDT Respiratory Rate 18 09/26/2018 1:05 PM EDT Oxygen Saturation - - Inhaled Oxygen Concentration - - Weight 96.5 kg (212 lb 12.8 oz) 09/26/2018 1:05 PM EDT Height 175 cm (5' 8.9") 09/26/2018 1:05 PM EDT Body Mass Index 31.52 09/26/2018 1:05 PM EDT documented in this encounter Progress Notes * Gerri Cueto LPN - 09/26/2018 2:15 PM EDT Pre-Administration Time Out Procedure Performed: Yes Patient Identified (Ask Name/Date of ): Yes Does the patient have a fever greater than 101 degrees today? No Patient allergic to latex? No Has the patient ever fainted after receiving an injection? No VFC Stock: No Immunization(s) verified: Yes, Immunization Name: Shingrix, VIS Sheet(s) given: Yes Verified Side and Site: Yes Verified Shot(s) with Parent(s)/Patient: Yes Patient tolerated well. * Milly Loza MD - 09/26/2018 1:26 PM EDT SUBJECTIVE: El Suggs is a 58 year old male. Chief Complaint Patient presents with Follow Up Patient want to discuss test results recently. HPI: 58 year old YOmale with PMH significant for hyperlipidemia, hyperkalemia , vitamin-D deficiency presents here for recheck. Since last seen he has been feeling overall better Acute issue or concern: -wants to discuss labs -KCL been high w/o any cause , seen by nephro - discussed Interim medical history : Seen by nephro Watching diet and doing regular exercise: Yes Routine labs: Due Routine HM: reviewed and discussed, patient agreed [...] Medication Sig Dispense Refill Vitamin D, Ergocalciferol, 54745 units Capsule Take 1 Cap by mouth [...] file Gets together: Not on file Attends christianity service: Not on file Active member of [...] Not on file Social History Narrative job: [employer] employer: [email or web address] education: phd molecular biology service: no hobbies/interests: Gardeing, walking transfusions: No Tattoos- no exercise: yes diet: no congregational/jehovah's witness: none marital status: 1989 children: none gc: [...] negative except mentioned in HPI OBJECTIVE: BP 122/84 | Pulse 66 | Temp (Src) 97 (Tympanic) | Resp 18 | Ht 5' 8.898" (1.750m) | Wt 212 lbs 12.8oz (96.525kg) | BMI 31.52 kg/m | BSA 2.17 m PHYSICAL EXAM: [...] deformities, effusion, or inflammation ASSESSMENT AND PLAN: Borderline systolic HTN (Primary) - EKG Lifestyle change with watching diet mariella avoiding salty food , routine exercise and wt loss Would watch closely in future Impaired fasting glucose - HEMOGLOBIN A1C; Future; Expected date: 10/03/2018 Doing well on conservative measure Continue to watch diet and exercise Wwill follow lab closely Special screening examination for viral disease - HIV AG&AB SCREEN W/ CONFIRMATION; Future; Expected date: 09/26/2018 Need for hepatitis C screening test - HCV SCREEN WITH CONFIRMATION; Future; Expected date: 09/26/2018 Need for shingles vaccine - ZOSTER VACCINE RECOMB, 2 DOSE, IM (SHINGRIX) 25 min spent on face to face counselling on different aspect of disease. Follow Up: Return in about 5 months (around 02/26/2019) for recheck . Treatment and plan discussed with patient [...] the author for clarification. Milly Loza MD 1:28 PM 09/26/2018 Verbal consent received from patient for HIV screening. Milly Loza MD documented in this encounter Procedure Notes * Braeden Whyte DO - 09/26/2018 1:21 PM EDT Associated Order(s): EKG REASON FOR STUDY: CONCLUSIONS: Sinus bradycardia Moderate voltage criteria for LVH, may be normal variant Borderline ECG No previous ECGs available Ventricular Rate: 54 Atrial Rate: 54 [place] Interval: 148 QRS Duration: 96 QT/QTc: 440/417 ms P-R-T [place]: 32 : 1 : 23 degrees documented in this encounter Nursing Notes * Ani Liu LPN - 09/26/2018 1:35 PM EDT EKG completed per order * Ursula Dial LPN - 09/26/2018 1:04 PM EDT Patient want to discuss test results recently. documented in this encounter Plan of Treatment Upcoming Encounters Date Type Specialty Care Team Description 02/27/2019 Office Visit Internal Medicine Milly Loza MD 200 [place] [address] Health Maintenance Due Date Last Done Comments DTaP,Tdap,and Td Vaccines (2 - Td) 09/18/2020 09/18/2010 DIABETES SCREEN EVERY 3 YRS-AGE 45 AND ABOVE 09/30/2021 09/30/2018, 09/30/2018, 09/11/2018, Additional history exists LIPID SCREEN EVERY 5 YRS-MEN AGE 35-75 08/28/2023 08/27/2018, 06/04/2016, 02/22/2012, Additional history exists Influenza Vaccine (FLU shot) Completed 01/2018, 01/21/2016, 01/20/2015, Additional history exists MENINGOCOCCAL (MENACTRA) Aged Out No longer eligible based on patient's age to complete this topic documented as of this encounter Implants Not on filedocumented as of this encounter Procedures Procedure Name Priority Date/Time Associated Diagnosis Comments EKG Routine 09/26/2018 1:21 PM EDT Borderline systolic HTN documented in this encounter Results * HCV SCREEN WITH CONFIRMATION (09/30/2018 7:45 AM EDT) HEPATITIS C ANTIBODY NEGATIVE NEG [facility] HCV COMMENT Further HCV quantitative testing not performed per protocol. [facility] Specimen Performing Organization Address [facility] e Phone Number [facility], [address] [place] [address] * HIV AG&AB SCREEN W/ CONFIRMATION (09/30/2018 7:45 AM EDT) HIV-1/2 Ag/Ab SCREEN NONREACTIVE NR [facility] Specimen Performing Organization Address [facility] e Phone Number [facility], [address] [place] [address] * HEMOGLOBIN A1C (09/30/2018 7:45 AM EDT) HEMOGLOBIN, A1C 5.2 Comment: The use of HbA1c to monitor glycemic status is based on normal hemoglobin and HbA composition. This test should not be used in patients with abnormal hemoglobin that affects the half life of the red blood cell or the in vivo glycation rates. 4.0 - 5.6 % [facility] EST AVG GLUCOSE 103 <126 [facility] Specimen Performing Organization Address [facility] e Phone Number [facility], [address] [place] [address] * EKG (09/26/2018 1:21 PM EDT) Specimen Procedure Note Braeden Whyte, DO - 09/26/2018 1:21 PM EDT REASON FOR STUDY: CONCLUSIONS: Sinus bradycardia Moderate voltage criteria for LVH, may be normal variant Borderline ECG No previous ECGs available Ventricular Rate: 54 Atrial Rate: 54 [place] Interval: 148 QRS Duration: 96 QT/QTc: 440/417 ms P-R-T [place]: 32 : 1 : 23 degrees Performing Organization Address [facility] e Phone Number [facility] documented in this encounter Visit Diagnoses Diagnosis Borderline systolic HTN- Primary Elevated blood pressure reading without diagnosis of hypertension Impaired fasting glucose Special screening examination for viral disease Special screening examination for unspecified viral disease Need for hepatitis C screening test Special screening examination for other specified viral diseases Need for shingles vaccine Need for prophylactic vaccination and inoculation against other viral diseases documented in this encounter Advance Directives Documents on File Type Date Recorded Patient General Maintenance Helper Expl anation Advanced Directive Advanced Directive Advanced Directive Advanced Directive Advanced Directive Advanced Directive Advanced Directive Advanced Directive Advanced Directive
--- OUTSIDE RECORDS SUMMARY | 2022-12-05 06:20 | External Medical Summary | Summary of Care ---
Author [place] [address] Care Team Providers Care Assisted Sales Representative Name Role Phone Milly Loza MD Primary Care Provider [phone] Reason for Visit * Reason Comments Outpatient Testing Encounter Details Date Type Department Care Team Description 09/16/2018 Telephone Nephrology, [facility] [address] [place] [address] Bucky Loza MD [address] [place] [address] Outpatient Testing Allergies Active Allergy Reactions Severity Noted Date Comments Nitrofurantoin Chills/rigors 07/03/2010 Sulfamethoxazole Chills/rigors High 07/03/2010 documented as of this encounter (statuses as of 09/16/2018) Medications Medication Sig Dispensed Refills Start Date End Date Status Vitamin D, Ergocalciferol, 20119 units Capsule Take 1 Cap by mouth [...] Encounter - Ani Parsons LPN - 09/16/2018 2:09 PM EDT Orders placed as requested. documented in this encounter Plan of Treatment Upcoming Encounters Date Type Specialty Care Team Description 09/17/2018 Office Visit Nephrology Bucky Loza MD 21 [facility] [place] [address] 09/26/2018 Office Visit Internal Medicine Milly Loza MD 200 [facility], [place] [address] Scheduled Orders Name Type Priority Associated Diagnoses Orde r Schedule URINE W/ MICROSCOPIC Lab STAT Hyperkalemia Expected: 09/17/2018 (Approximate), Expires: 10/17/2019 Health Maintenance Due Date Last Done Comments [...] Documents on File Type Date Recorded Patient Income Tax Return Preparer Expl anation Advanced Directive Advanced Directive Advanced Directive Advanced Directive Advanced Directive Advanced Directive Advanced Directive Advanced Directive
--- OUTSIDE RECORDS SUMMARY | 2022-12-05 06:20 | External Medical Summary ---
Author Name Unknown Address [facility] [place] [address] Phone Organization K01:[place] [address] [id number] Laboratory Report Ordering Provider Test Date Status SAL MARSHALL 09/30/2018 07:45:00 Final Observation Date Value Abnormality Reference Status HbA1C 09/30/2018 15:39 5.2 4.0-5.6 Fin al Performing Location [address] [address]
--- OUTSIDE RECORDS SUMMARY | 2022-12-05 06:20 | External Medical Summary ---
Author Name Unknown Address [facility] [address] [place] [id number] Phone Organization K01:[facility] [address] [id number] Laboratory Report Ordering Provider Test Date Status SAL BROCK 02/13/2019 07:55:00 Final Observation Date Value Abnormality Reference Status BUN 02/13/2019 14:21 11 6-20 Fin al Creatinine 02/13/2019 14:21 0.8 0.6-1.[address] Per[address] [facility] [address] [facility] [address]
--- OUTSIDE RECORDS SUMMARY | 2022-12-05 06:20 | External Medical Summary | Summary of Care ---
Author Name Unknown Organization [place] [address] Care Team Providers Care Airplane Flight Attendant Name Role Phone Milly Loza MD Primary Care Provider [phone] Reason for Visit * Reason Comments Test Results Encounter Details Date Type Department Care Team Description 10/06/2018 Telephone Nephrology 2nd Floor, [place] 21 [place] [address] Bucky Loza MD 21 [place] [address] Test Results Allergies Active Allergy Reactions Severity Noted Date Comments Nitrofurantoin Chills/rigors 07/03/2010 Sulfamethoxazole Chills/rigors High 07/03/2010 documented as of this encounter (statuses as of 10/07/2018) Medications Medication Sig Dispensed Refills Start Date End Date Status Vitamin D, Ergocalciferol, 39899 units Capsule Take 1 Cap by mouth once a week. 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 MyG sent. * Telephone Encounter - Ani Parsons LPN - 10/06/2018 4:02 PM EDT Call to patient. No answer. Left message for pt to call and speak to the nephrology nurse. * Telephone Encounter - Ani Parsons LPN - 10/06/2018 4:01 PM EDT ----- Message from Bucky Loza MD sent at 10/01/2018 3:22 PM EDT ----- Vitamin-D is normal. So he does not necessarily need to take the vitamin-D at this point Potassium and kidney function completely normal. Continue same. But if he is completely eliminating potassium from his diet that may not be a good idea. documented in this encounter Plan of Treatment Upcoming Encounters Date Type Specialty Care Team Description 02/27/2019 Office Visit Internal Medicine Milly Loza MD 200 [place] [address] Health Maintenance Due Date Last Done [...] Documents on File Type Date Recorded Patient Retail Marketing Manager Expl anation Advanced Directive Advanced Directive Advanced Directive Advanced Directive Advanced Directive Advanced Directive Advanced Directive Advanced Directive Advanced Directive
--- OUTSIDE RECORDS SUMMARY | 2022-12-05 06:20 | External Medical Summary ---
Author Name Unknown Address [facility] [address] [id number] Phone Organization K01:[facility] [address] [id number] Laboratory Report Ordering Provider Test Date Status SAL MARSHALL 09/10/2018 07:49:00 Final Observation Date Value Abnormality Reference Status BUN 09/10/2018 15:02 9 6-20 Fin al Creatinine 09/10/2018 15:02 0.9 0.6-1.2 Fi nal Performing Location [facility] 100 [facility] [address]
--- OUTSIDE RECORDS SUMMARY | 2022-12-05 06:20 | External Medical Summary | Summary of Care ---
Author Name Unknown [place] [address] Care Team Providers Care Respite Coordinator Name Role Phone Milly Loza MD Primary Care Provider [phone] Reason for Visit * Reason Comments Test Results Encounter Details Date Type Department Care Team Description 02/18/2019 Telephone Nephrology 2nd Floor, [place] [address] [place] [address] Bucky Loza MD 21 [place] [address] Test Results Allergies Active Allergy Reactions Severity Noted Date Comments Nitrofurantoin Chills/rigors 07/03/2010 Sulfamethoxazole Chills/rigors High 07/03/2010 documented as of this encounter (statuses as of 02/23/2019) Medications Medication Sig Dispensed Refills Start Date End Date Status Vitamin D, Ergocalciferol, 61922 units Capsule Take 1 Cap by mouth once a week. 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 BMP ordered. * Telephone Encounter - Ani Parsons LPN - 02/18/2019 10:42 AM EST ----- Message from Bucky Loza MD sent at 02/16/2019 11:51 AM EST ----- Labs totally normal both kidney function and the electrolytes including potassium. Now that we have had 3 consecutive normal blood test I do not think we need to do frequent labs. he can have labs every 6 months documented in this encounter Plan of Treatment Upcoming Encounters Date Type Specialty Care Team Description 02/27/2019 Office Visit Internal Medicine Milly Loza MD 200 [place] [address] [phone] 03/25/2019 Office Visit Nephrology Bucky Loza MD 21 [facility] [place] [address] Scheduled Orders Name Type Priority Associated Diagnoses Orde r Schedule BASIC METAB PANEL, BMP Lab STAT Hyperkalemia Expected: 08/19/2019 (Approximate), Expires: 03/20/2020 Health Maintenance Due Date Last Done Comments [...] Documents on File Type Date Recorded Patient Abattoir Supervisor Expl 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
--- OUTSIDE RECORDS SUMMARY | 2022-12-05 06:20 | External Medical Summary | Summary of Care ---
Author Name Unknown [place] [address] Care Team Providers Care Loan Supervisor Name Role Phone Milly Loza MD Primary Care Provider [phone] Reason for Visit * Reason Comments Order Request Encounter Details Date Type Department Care Team Description 11/19/2018 Telephone Nephrology 2nd Floor, [place] 21 [place] [address] Bucky Loza MD 21 [place] [address] Order Request Allergies Active Allergy Reactions Severity Noted Date Comments Nitrofurantoin Chills/rigors 07/03/2010 Sulfamethoxazole Chills/rigors High 07/03/2010 documented as of this encounter (statuses as of 11/19/2018) Medications Medication Sig Dispensed Refills Start Date End Date Status Vitamin D, Ergocalciferol, 67438 units Capsule Take 1 Cap by mouth once a week. 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 Left detailed message on . Pt to call with any questions. * Telephone Encounter - Ani Parsons LPN - 11/19/2018 10:21 AM EDT ----- Message from Bucky Loza MD sent at 11/19/2018 10:03 AM EDT ----- Please make sure he has monthly BMP Bucky Loza MD documented in this encounter Plan of Treatment Upcoming Encounters Date Type Specialty Care Team Description 02/27/2019 Office Visit Internal Medicine Milly Loza MD 200 [facility] [place] [address] [phone] 03/25/2019 Office Visit Nephrology Bucky Loaz MD [address] [facility] [address] [place] [id number] Scheduled Orders Name Type Priority Associated Diagnoses Orde r Schedule BASIC METAB PANEL, BMP Lab STAT Hyperkalemia Every Month for 12 Occurrences starting 11/19/2018 until 11/20/2019 Health Maintenance Due Date Last Done Comments [...] Documents on File Type Date Recorded Patient Local Sales Manager Expl anation Advanced Directive Advanced Directive Advanced Directive Advanced Directive Advanced Directive Advanced Directive Advanced Directive Advanced Directive Advanced Directive
--- OUTSIDE RECORDS SUMMARY | 2022-12-05 06:20 | External Medical Summary ---
Author Name Unknown Address [facility] [address] [id number] Phone Organization K01:[place] [address] [address] [id number] Laboratory Report Ordering Provider Test Date Status SAL MARSHALL 09/11/2018 07:39:00 Final Observation Date Value Abnormality Reference Status Magnesium 09/11/2018 15:04 2.0 1.5-2.6 Fin al Performing Location [address] [address]
--- OUTSIDE RECORDS SUMMARY | 2022-12-05 06:20 | External Medical Summary | Summary of Care ---
Author Name Unknown Organization [place] [address] Care Team Providers Care Safety Engineer Name Role Phone Milly Loza MD Primary Care Provider [phone] Reason for Visit * Reason Comments Test Results Encounter Details Date Type Department Care Team Description 09/02/2018 Telephone General Internal Medicine [facility] [address] [place], [place] [id number] Milly Loza MD 200 [facility] [address] [place], [place] [phone] Test Results Allergies Active Allergy Reactions Severity Noted Date Comments Nitrofurantoin Chills/rigors 07/03/2010 Sulfamethoxazole Chills/rigors High 07/03/2010 documented as of this encounter (statuses as of 09/03/2018) Medications Medication Sig Dispensed Refills Start Date End Date Status MULTIVITAL PO TABS 1 TABLET DAILY 1 Tab 0 07/03/2010 Active VITAMIN D (ERGOCALCIFEROL) 25708 UNITS PO CAPSIndications:Vitam in D deficiency 1 [...] as of this encounter (statuses as of 09/03/2018) Active Problems Problem Noted Date Hair loss [...] as of this encounter (statuses as of 09/03/2018) Resolved Problems Problem Noted Date Resolved Date 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 Patient has no further questions. Pt will get his BMP done again as requested by Dr Loza. Pt is NOT taking any potassium supplements. * Telephone Encounter - Pamela Calero LPN - 09/02/2018 5:04 PM EDT Called, left message for patient to return call. Thank you * Telephone Encounter - Pamela Calero LPN - 09/02/2018 5:03 PM EDT ----- Message from Milly Loza [...] Internal Medicine Milly Loza MD [address] [place] [address] [phone] Scheduled Orders Name Type Priority Associated Diagnoses Orde r Schedule BASIC METAB PANEL, BMP Lab Routine Calcium blood increased Expected: 09/02/2018 (Approximate), Expires: 09/02/2019 Health Maintenance Due Date Last Done Comments [...] as of this encounter Visit Diagnoses Diagnosis Calcium blood increased- Primary Hypercalcemia documented in this encounter Advance Directives Documents on File Type Date Recorded Patient Installation Helper Expl anation Advanced Directive Advanced Directive Advanced Directive Advanced Directive Advanced Directive Advanced Directive Advanced Directive Advanced Directive
--- OUTSIDE RECORDS SUMMARY | 2022-12-05 06:20 | External Medical Summary ---
Author Name Unknown Address [facility] [address] [phone] Phone Organization K01:[facility] [address] [id number] Laboratory Report Ordering Provider Test Date Status SAL BROCK 09/30/2018 07:45:00 Final Observation Date Value Abnormality Reference Status BUN 09/30/2018 15:40 9 6-20 Fin al Creatinine 09/30/2018 15:40 0.9 0.6-1.2 Fi nal Performing Location [facility] [address] [facility] [address]
--- OUTSIDE RECORDS SUMMARY | 2022-12-05 06:20 | External Medical Summary ---
Author Name Unknown Address [address] [place] [address] ) Organization K03:[facility] [address] [place] [address] Laboratory Report Ordering Provider Test Date Status SAL MARSHALL 09/11/2018 07:39:00 Final Observation Date Value Abnormality Reference Status Renin Activity 09/15/2018 14:58 0.81 0.25-5.8 2 Final Aldosterone 09/15/2018 14:58 6.2 0.9-28.9 F inal Performing Location [email or web address] [address] [place] [address]
--- OUTSIDE RECORDS SUMMARY | 2022-12-05 06:21 | External Medical Summary ---
Author Name Unknown Address [address] [place] [address] Phone Organization K01:[facility] [address] [facility] [address] Laboratory Report Ordering Provider Test Date Status SAL MARSHALL 08/27/2018 08:24:00 Final Observation Date Value Abnormality Reference Status WBC, Total 08/27/2018 14:16 6.62 4.00-10.80 F inal RBC 08/27/2018 14:16 5.32 Above high normal 4.50- 5.25 Final Hemoglobin 08/27/2018 14:16 16.2 14.0-16.8 Fi nal HCT 08/27/2018 14:16 47.9 40.0-48.4 Fin al MCV 08/27/2018 14:16 90.0 82.0-99.5 Fin al MCH 08/27/2018 14:16 30.5 27.0-34.0 Fin al MCHC 08/27/2018 14:16 33.8 32.0-36.0 Fin al RDW 08/27/2018 14:16 13.3 11.5-15.5 Fin al Platelets 08/27/2018 14:16 256 140-400 Fin al MPV 08/27/2018 14:16 10.9 6.6-11.1 Fin al Performing Location [facility] [address] [facility] [address]
--- OUTSIDE RECORDS SUMMARY | 2022-12-05 06:21 | External Medical Summary ---
Author Name KT ORDAZ Organization K01[facility] [address] [address] Support Name Relationship Address Phone KT ORDAZ, P PROV Unknown Unavailable Laboratory Report Ordering Provider Test Date Status P KT ORDAZ 02/22/2012 09:16:00-0500 Final Obs # Observation Date Value ABNL Reference Status Pe rforming Location 1 CRP, High-sensitivity 02/22/2012 14:30-0500 0.58 0.00-5.00 mg/L Final CARDIOVASCULAR DISEASE RISK ASSESSMENT (RELATIVE RISK) <1.0 mg/L LOW 1.0-3.0 mg/L AVERAGE >3.0 mg/L HIGH THIS TABLE MAY NOT APPLY IN CERTAIN INFLAMMATORY CONDITIONS
--- OUTSIDE RECORDS SUMMARY | 2022-12-05 06:21 | External Medical Summary ---
Author Name KT ORDAZ Organization K[facility], [address] [address] Support Name Relationship Address Phone KT ORDAZ, P PROV Unknown Unavailable Laboratory Report Ordering Provider Test Date Status P KT ORDAZ 02/22/2012 09:16:00-0500 Final Obs # Observation Date Value ABNL Reference Status Pe rforming Location 1 WBC 02/22/2012 13:55-0500 6.82 4.00-10.80 K/uL Final 2 RBC 02/22/2012 13:55-0500 5.03 4.50-5.25 M/uL Final 3 HGB 02/22/2012 13:55-0500 15.1 14.0-16.5 g/dL Final 4 HCT 02/22/2012 13:55-0500 42.7 40.0-47.0 % Final 5 MCV 02/22/2012 13:55-0500 84.9 82.0-99.5 fL Final 6 MCH 02/22/2012 13:55-0500 30.0 27.0-34.0 pg Final 7 MCHC 02/22/2012 13:55-0500 35.4 32.0-36.0 g/dL Final 8 RDW 02/22/2012 13:55-0500 13.5 11.5-15.5 % Final 9 PLT 02/22/2012 13:55-0500 256 140-400 K/uL Final 10 MPV 02/22/2012 13:55-0500 10.6 6.6-11.1 fL Final 11 Segs 02/22/2012 13:55-0500 66 40-75 % Final 12 Lymphocytes 02/22/2012 13:55-0500 24 18-42 % Final 13 Monos 02/22/2012 13:55-0500 7 1-11 % Final 14 Eosinophils 02/22/2012 13:55-0500 2 0-6 % Final 15 Basos 02/22/2012 13:55-0500 1 0-2 % Final 16 Segmented Neutrophils, Abs 02/22/2012 13:55-0500 4.50 1.8-7.7 K/uL Final 17 Lymphs, Abs 02/22/2012 13:55-0500 1.62 1.0-4.8 K/uL Final 18 Monos, Abs 02/22/2012 13:55-0500 0.49 0.0-1.1 K/uL Final 19 Eos, Abs 02/22/2012 13:55-0500 0.14 0.0-0.7 K/uL Final 20 Basos, Abs 02/22/2012 13:55-0500 0.05 0.0-0.2 K/uL Final
--- OUTSIDE RECORDS SUMMARY | 2022-12-05 06:21 | External Medical Summary ---
Author Name KT ORDAZ Organization [id number] Support Name Relationship Address Phone KT ORDAZ, P PROV Unknown Unavailable Laboratory Report Ordering Provider Test Date Status Celestino MERAZ MD 02/22/2012 09:16:00-0500 Final Obs # Observation Date Value ABNL Reference Status Pe rforming Location 1 hours fasting 02/22/2012 09:17-0500 12 hours Final 2 Triglyceride 02/22/2012 14:18-0500 96 <200 mg/dL Final TRIGLYCERIDE REFERENCE RANGES (mg/dL) <150 NORMAL 150-199 BORDERLINE HIGH 200-499 HIGH >499 VERY HIGH TOTAL CHOLESTEROL REFERENCE RANGES(mg/dL) <200 DESIRABLE 200-239 BORDERLINE HIGH >239 HIGH HDL CHOLESTEROL REFERENCE RANGES(mg/dL) <40 LOW(UNDESIRABLE) >59 HIGH(DESIRABLE) LDL CHOLESTEROL REFERENCE RANGES(mg/dL) <100 OPTIMAL GOAL FOR HIGH RISK PATIENTS 100-129 NEAR OR ABOVE NORMAL 130-159 BORDERLINE HIGH 160-189 HIGH >189 VERY HIGH
--- OUTSIDE RECORDS SUMMARY | 2022-12-05 06:21 | External Medical Summary ---
Author Name Unknown Address [facility] [address] [phone] Phone Organization K01:[facility] [address] [id number] Laboratory Report Ordering Provider Test Date Status SAL MARSHALL 08/27/2018 08:24:00 Final Observation Date Value Abnormality Reference Status TSH 08/27/2018 15:46 1.83 0.27-4.2 Fin al T4, Free 08/27/2018 15:46 NOT APPLICABLE 0.9-1.7 Final Performing Location [facility] [address] [facility] [address]
--- OUTSIDE RECORDS SUMMARY | 2022-12-05 06:21 | External Medical Summary ---
Author Name Unknown Address [address] [phone] Phone Organization K01:[facility] [address] [facility] [address] Laboratory Report Ordering Provider Test Date Status KT Tirado MD 06/04/2016 08:00:00 Final Obs # Observation Date Value Abnormality Reference Status Performing Location 0 25-OH Vitamin D total 06/04/2016 15:32 46 >19 Final [facility] [address] [facility] [address]
--- OUTSIDE RECORDS SUMMARY | 2022-12-05 06:21 | External Medical Summary | Summary of Care ---
Author Name Unknown Organization [place] [address] Care Team Providers Care Hand Cigar Making Supervisor Name Role Phone Milly Loza MD Primary Care Provider [phone] Reason for Visit * Reason Comments Appointment sleep med Encounter Details Date Type Department Care Team Description 08/26/2018 Telephone General Internal Medicine [facility] [address] [place], [place] [id number] Milly Loza MD 200 [place] [address] [phone] Appointment (sleep med) Allergies Active Allergy Reactions Severity Noted Date Comments Nitrofurantoin Chills/rigors 07/03/2010 Sulfamethoxazole Chills/rigors High 07/03/2010 documented as of this encounter (statuses as of 08/26/2018) Medications Medication Sig Dispensed Refills Start Date End Date Status MULTIVITAL PO TABS 1 TABLET DAILY 1 Tab 0 07/03/2010 Active VITAMIN D (ERGOCALCIFEROL) 35613 UNITS PO CAPSIndications:Vitam in D deficiency 1 [...] as of this encounter (statuses as of 08/26/2018) Active Problems Problem Noted Date Hair loss [...] as of this encounter (statuses as of 08/26/2018) Resolved Problems Problem Noted Date Resolved Date 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 12/201009/14/2010 Overview: ICD-10 update of inactive term HEMANGIOMA SKIN RIGHT CHEEK 09/14/201011/2012 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 Corcoran. Please sign office note from today to be sent for this appointment. Thank you documented in this encounter Plan of Treatment Upcoming Encounters Date Type Specialty Care Team Description 08/29/2018 NeuroDiagnostic Study Neurophysiology Sp, Neurophys Tech 200 [facility] [place] [address] [phone] 09/26/2018 Office Visit Internal Medicine Milly Loza MD [address] [facility] [place] [address] [phone] Health Maintenance Due Date Last Done Comments *DEPRESSION SCREENING, ANNUAL FOR PTS 18 AND OVER 05/01/2014 DIABETES SCREEN EVERY 3 YRS-AGE 45 AND ABOVE 06/04/2019 06/04/2016, 02/22/2012, 07/05/2010 DTaP,Tdap,and Td Vaccines (2 - Td) 09/18/2020 09/18/2010 LIPID SCREEN EVERY 5 YRS-MEN AGE 35-75 06/04/2021 06/04/2016, 02/22/2012, 07/05/2010 Influenza Vaccine (FLU shot) Completed 01/2018, 01/21/2016, 01/20/2015, Additional history exists MENINGOCOCCAL (MENACTRA) Aged Out No longer eligible based on patient's age to complete this topic documented as of this encounter Implants Not on filedocumented as of this encounter Advance Directives Documents on File Type Date Recorded Patient Instructional Design Specialist Expl anation Advanced Directive Advanced Directive Advanced Directive Advanced Directive Advanced Directive Advanced Directive Advanced Directive Advanced Directive
--- OUTSIDE RECORDS SUMMARY | 2022-12-05 06:21 | External Medical Summary ---
Author Name KT ORDAZ Organization K01:[facility], [address] [address] Support Name Relationship Address Phone KT ORDAZ, P PROV Unknown Unavailable Laboratory Report Ordering Provider Test Date Status Celestino MERAZ MD 02/22/2012 09:16:00-0500 Final Obs # Observation Date Value ABNL Reference Status Pe rforming Location 1 PSA 02/22/2012 14:47-0500 0.59 <3.1 ng/mL Final
--- OUTSIDE RECORDS SUMMARY | 2022-12-05 06:21 | External Medical Summary | Summary of Care ---
Author Name Unknown Organization [place] [address] Care Team Providers Care Veterans Adviser Name Role Phone Milly Loza MD Primary Care Provider [phone] Reason for Referral * Evaluate & Treat - Unlimited Visits (Within 10 days (routine)) Status Reason Specialty Diagnoses / Procedures Referred By Contact Referred To Contact Pending Review Specialty Services Required Sleep Medicine Diagnoses Snoring Fatigue, unspecified type Muscle, jerky movements (uncontrolled) Memory loss Milly Loza MD [address] [place] [id number] Reason for Visit * Reason Comments NEW PATIENT Here to establish. P atient has problems with chronic sinusitis, congestion, mostly in left side. Brought up that while on vacation, patient was noticed to have jerking/flailing episode while sleeping that appeared to be a seizure. Has happened a few times at night but never during the day. states she doesn't sleep in bed with him at home so is unsure of the frequency of these episodes. Encounter Details Date Type Department Care Team Description 08/26/2018 Office Visit General Internal Medicine Tiffanie Mcclellan [place] [address] [place] [address] [facility] [address] [phone] Muscle, jerky movements (uncontrolled)*; Fatigue, unspecified type; Memory loss; Snoring; Dyslipidemia, goal LDL below 100; Hx of skin cancer, basal cell Allergies Active Allergy Reactions Severity Noted Date Comments Nitrofurantoin Chills/rigors 07/03/2010 Sulfamethoxazole Chills/rigors High 07/03/2010 documented as of this encounter (statuses as of 08/26/2018) Medications Medication Sig Dispensed Refills Start Date End Date Status MULTIVITAL PO TABS 1 TABLET DAILY 1 Tab 0 07/03/2010 Active VITAMIN D (ERGOCALCIFEROL) 05644 UNITS PO CAPSIndications:V itamin D deficiency 1 [...] 1 cap once daily 0 08/26/2018 Active Saw [place]-Zinc (SAW PALMETTO EXTRACT) 160-15 MG CAPS Take 1 Tab by mouth 2 times a day. 0 11/29/2015 08/26/2018 Discontinued documented as of this encounter (statuses [...] Sign Reading Time Taken Comments Blood Pressure 122/72 08/26/2018 9:56 AM EDT Pulse 62 08/26/2018 9:56 AM EDT Temperature 36.3 C (97.3 F) 08/26/2018 9:56 AM ED T Respiratory Rate 16 08/26/2018 9:56 AM EDT Oxygen Saturation - - Inhaled Oxygen Concentration - - Weight 97.4 kg (214 lb 12.8 oz) 08/26/2018 9:56 AM EDT Height 174 cm (5' 8.5") 08/26/2018 9:56 AM EDT Body Mass Index 32.19 08/26/2018 9:56 AM EDT documented in this encounter Progress Notes * Milly Loza MD - 08/26/2018 10:04 AM EDT SUBJECTIVE: El Suggs is a 58 year old male. Chief Complaint Patient presents with NEW PATIENT Here to establish. Patient has problems with chronic sinusitis, congestion, mostly in left side. Brought up that while on vacation, patient was noticed to have jerking/flailing episode while sleepingthat appeared to be a seizure. Has happened a few times at night but never during the day. states she doesn't sleep in bed with him at home so is unsure of the frequency of these episodes. HPI: 58 year old YOmale with PMH significant for hyperlipidemia, vitamin-D deficiency presents here to get established and evaluation of sinus issues and jerky movement at night. Originally from [facility]. Prior Dr Cardona patient. Symptoms present: -chronic sinus issue - year round but worse in [place] and [place]. Symptoms include, sinus congestin, runny nose , ear clogging , ear plugging only on left -jerkiness during sleep . snour heavily and lately noticed jerky movement during sleep lastingfor few sec followed by limb on his back and seems not breathing . Also breathing goes in cycles big and deep breath then rapid swallow then . Because of heavy some snoring and other symptoms sleeps in a different room but noticed above symptoms when she slept in the same room in vacation -focusing and memory issue for last few yrs , daytime sleepiness and fatigue Symptoms not present: Headache, numbness and tingling in hands or legs, lightheadedness, shakiness or seizure-like movement during the day Have same similar issue in past : Diagnosed with sleep apnea and past but did not use CPAP machine has been a while Since symptoms started things getting : worse Used any meds: Used 2-3 pillows Other chronic medical issue: Reviewed and as above . Patient Active Problem List Diagnosis Code Obesity, Class I, BMI 30.0-34.9 (see actual BMI) E66.9 Dyslipidemia, goal LDL below 100 E78.5 Calculus of gallbladder without mention of cholecystitis or obstruction K80.20 Vitamin D deficiency E55.9 Special screening for malignant neoplasm of prostate Z12.5 Screen for colon cancer Z12.11 Hx of skin cancer, basal cell Z85.828 Obesity, Class I, BMI 30.0-34.9 (see actual BMI) E66.9 Hair loss L65.9 INFORMATION INFO Current Outpatient Medications Medication Sig Dispense Refill Piperine POWD Takes 1 cap once daily Néstor, Zingiber officinalis, (NÉSTOR ROOT) 550 MG CAPS Take 1 Tab by mouth 2 times a day. Turmeric, Curcuma Longa, POWD Take 1 Cap by mouth 2 times a day. FISH OIL 1200 MG PO CAPS as directed VITAMIN C 100 MG PO TABS 400 mg each day VITAMIN D (ERGOCALCIFEROL) 02184 UNITS PO CAPS 1 capsule weekly 4 Cap 5 MULTIVITAL PO TABS 1 TABLET DAILY 1 Tab 0 Past Medical History: Diagnosis Date Calculus of [...] performed by Alok Castaneda MD at ENDOSCOPY [facility] MISCELLANEOUS ORDER age 9 left tibia and fibula ORIF REMOVE TONSILS & ADENOIDS, UNDER 11 age 4 or 5 Social History Socioeconomic History Marital status: Spouse [...] file Gets together: Not on file Attends pentecostal service: Not on file Active member of [...] Not on file Social History Narrative job: [employer] employer: [employer] education: phd molecular biology service: no hobbies/interests: Gardeing, walking transfusions: No Tattoos- no exercise: yes diet: no rastafarian/yazidi: none marital status: 1988 children: none gc: 0 ggc: 0 pets: none exposure to violence/threats/abuse: no things to improve: no Family History Problem Relation Age of Onset Hypertension Mother Alzheimer's disease Mother 94 Other (pulmonary embolism) Mother 94 Diabetes Father prediabetes Hypertension Father Mental Disorder Father dementia- at age 72 Parkinsonism Father similar Cancer None Heart Disorder None Stroke Grandmother (Paternal) Stroke Grandfather (Paternal) ROS: All 10 systems reviewed and negative except mentioned in HPI Allergy: Review of patient's allergies indicates: Allergen Reactions Sulfamethoxazole Chills/rigors Nitrofurantoin Chills/rigors OBJECTIVE: BP 122/72 | Pulse 62 | Temp (Src) 97.3 (Tympanic) | Resp 16 | Ht 5' 8.5" (1.740m) | Wt 214 lbs 12.8oz (97.433kg) | BMI 32.19 kg/m | BSA 2.17 m General: alert, no distress and obese Head: Normocephalic, No masses, lesions, tenderness or abnormalities Ears: External ears normal, Canals clear, TM's Normal Oropharynx: no exudate, no erythema, lips, buccal mucosa, and tongue normal and mucous membranes are moist Neck: supple, no adenopathy, no bruits, thyroid normal size, non-tender, without nodularity Lungs: chest symmetric with normal AP diameter, no chest deformities noted, no chest wall tenderness, lungs clear to auscultation Heart: regular rate & rhythm, no murmurs and no gallops Abdomen: abdomen soft, non-tender, normal bowel sounds and no masses or organomegaly Extremities: less than 2 second capillary refill, no joint deformities, effusion, or inflammation ASSESSMENT AND PLAN: Muscle, jerky movements (uncontrolled) (Primary) - SLEEP MEDICINE REFERRAL OP - EEG; AWAKE AND ASLEEP Suspect from hypoxia from sleep apnea but needs to rule out seizure as well Fatigue, unspecified type - SLEEP MEDICINE REFERRAL OP - COMPR METAB PANEL; Future; Expected date: 08/26/2018 - VITAMIN B12; Future; Expected date: 08/26/2018 - FOLIC ACID; Future; Expected date: 08/26/2018 - CBC; Future; Expected date: 08/26/2018 Memory loss - SLEEP MEDICINE REFERRAL OP - VITAMIN B12; Future; Expected date: 08/26/2018 - FOLIC ACID; Future; Expected date: 08/26/2018 - TSH WITH FREE T4 IF INDICATED; Future; Expected date: 08/26/2018 Snoring - SLEEP MEDICINE REFERRAL OP Dyslipidemia, goal LDL below 100 - LIPID PANEL WITH DIRECT LDL IF TG ABOVE 150 MG/DL; Future; Expected date: 08/26/2018 Hx of skin cancer, basal cell Follow Up: Return in about 1 month (around 09/23/2018) for CPE/recheck /EKG - 40 min. 45 min spent on face to face counselling on different aspect of disease. Treatment and plan was discussed with patient and was given opportunity to ask questions which wereanswered appropriately. Patient verbalizing understanding. This note was made by the help of fluency and if there is any mis-spelled words , sentences or something which doesn't represent the content of the subject that could be technical error and please refer to the author for clarification. Milly Loza MD Associate, Internal Medicine [facility] 08/26/2018 10:04 AM documented in this encounter Nursing Notes * Anya Thacker LPN - 08/26/2018 9:59 AM EDT Chief Complaint Patient presents with NEW PATIENT Here to establish. Patient has problems with chronic sinusitis, congestion, mostly in left side. Brought up that while on vacation, patient was noticed to have jerking/flailing episode while sleepingthat appeared to be a seizure. Has happened a few times at night but never during the day. states she doesn't sleep in bed with him at home so is unsure of the frequency of these episodes. documented in this encounter Plan of Treatment Upcoming Encounters Date Type Specialty Care Team Description 08/29/2018 NeuroDiagnostic Study Neurophysiology Sp, Neurophys Tech [address] [facility] [place] [address] [phone] 09/26/2018 Office Visit Internal Medicine Milly Loza MD [address] [facility] [place] [address] [phone] Scheduled Orders Name Type Priority Associated Diagnoses Orde r Schedule LIPID PANEL WITH DIRECT LDL IF TG ABOVE 150 MG/DL Lab Routine Dyslipidemia, goal LDL below 100 Expected: 08/26/2018 (Approximate), Expires: 08/27/2019 COMPR METAB PANEL Lab Routine Fatigue, unspecified type Expected: 08/26/2018 (Approximate), Expires: 08/26/2019 VITAMIN B12 Lab Routine Fatigue, unspecified type Memory loss Expected: 08/26/2018 (Approximate), Expires: 08/26/2019 FOLIC ACID Lab Routine Fatigue, unspecified type Memory loss Expected: 08/26/2018 (Approximate), Expires: 08/26/2019 TSH WITH FREE T4 IF INDICATED Lab Routine Memory loss Expected: 08/26/2018 (Approximate), Expires: 08/26/2019 CBC Lab Routine Fatigue, unspecified type Expected: 08/26/2018 (Approximate), Expires: 08/26/2019 Scheduled Referrals Name Type Priority Associated Diagnoses Orde r Schedule SLEEP MEDICINE REFERRAL OP Referral Within 10 days (routine) Snoring Fatigue, unspecified type Muscle, jerky movements (uncontrolled) Memory loss Ordered: 08/26/2018 Health Maintenance Due Date Last Done Comments [...] as of this encounter Visit Diagnoses Diagnosis Muscle, jerky movements (uncontrolled)- Primary Other choreas Fatigue, unspecified type Memory loss Snoring Other dyspnea and respiratory abnormality Dyslipidemia, goal LDL below 100 Other and unspecified hyperlipidemia Hx of skin cancer, basal cell Personal history of other malignant neoplasm of skin documented in this encounter Advance Directives Documents on File Type Date Recorded Patient Station Jailer Expl anation Advanced Directive Advanced Directive Advanced Directive Advanced Directive Advanced Directive Advanced Directive Advanced Directive Advanced Directive
--- OUTSIDE RECORDS SUMMARY | 2022-12-05 06:21 | External Medical Summary ---
Author Name Unknown Address [facility] [place] [address] Phone Organization K01:[facility] [address] [address] Laboratory Report Ordering Provider Test Date Status ROLANDOSAL 08/27/2018 08:24:00 Final Observation Date Value Abnormality Reference Status BUN 08/27/2018 14:34 10 6-20 Fin al Creatinine 08/27/2018 14:34 0.9 0.6-1.2 Fi nal Performing Location [facility] [address] [id number]
--- OUTSIDE RECORDS SUMMARY | 2022-12-05 06:21 | External Medical Summary ---
Author Name KT ORDAZ Organization K01:[facility], [address] [address] Support Name Relationship Address Phone KT ORDAZ, P PROV Unknown Unavailable Laboratory Report Ordering Provider Test Date Status Celestino MERAZ MD 02/22/2012 09:16:00-0500 Final Obs # Observation Date Value ABNL Reference Status Pe rforming Location 1 BUN 02/22/2012 14:30-0500 9 6-20 mg/dL Final 2 Creatinine 02/22/2012 14:30-0500 0.7 0.6-1.3 mg/dL Final GFR should be used to assess renal function. Plasma/Serum creatinine may not be able to properly reflect renal function in some cases.
--- OUTSIDE RECORDS SUMMARY | 2022-12-05 06:21 | External Medical Summary ---
Author Name KT ORDAZ Organization K01[facility], [address] [address] Support Name Relationship Address Phone KT ORDAZ, P PROV Unknown Unavailable Laboratory Report Ordering Provider Test Date Status Celestino MERAZ MD 02/22/2012 09:16:00-0500 Final Obs # Observation Date Value ABNL Reference Status Pe rforming Location 1 25OH VITAMIN D TOTAL 02/22/2012 14:47-0500 20.0 L 30.0-100.0 ng/mL Final Deficient: <20.0 ng/mL Insufficient: 20.0-29.9 ng/ml Sufficient: 30.0-100.0 ng/ml High: >100.0 ng/ml Refer to [facility] for Practitioners Best Practice Guidelines for therapeutic recommendations.
--- OUTSIDE RECORDS SUMMARY | 2022-12-05 06:21 | External Medical Summary ---
Author Name Unknown Address [address] [id number] Phone Organization K01:[facility] [address] [id number] Laboratory Report Ordering Provider Test Date Status SAL MARSHALL 08/27/2018 08:24:00 Final Observation Date Value Abnormality Reference Status Vitamin B12 08/27/2018 15:46 [phone] F inal Performing Location [facility] [address] [facility] [address]
--- OUTSIDE RECORDS SUMMARY | 2022-12-05 06:21 | External Medical Summary ---
Author Name Unknown Address Unknown Organization : Laboratory Report Ordering Provider Test Date Status KT Tirado MD 06/04/2016 08:00:00 Final Obs # Observation Date Value Abnormality Reference Status Performing Location 0 Fasting status - Reported 06/04/2016 08:00 12 Final 1 Triglyceride 06/04/2016 14:58 88 <200 Final
--- OUTSIDE RECORDS SUMMARY | 2022-12-05 06:21 | External Medical Summary ---
Author Name Unknown Organization K01:[facility], [address] [address] Support Name Relationship Address Phone JUAN COYNE MD PROV Unknown Unavailable Laboratory Report Ordering Provider Test Date Status JUAN COYNE MD 07/05/2010 08:20-0400 Final Obs # Observation Date Value ABNL Reference Status Pe rforming Location 1 25-OH Vitamin D total (Calcidiol + Calciferol) 07/07/19 11 12:30-04 00 15.6 L 30.0-100.0 ng/mL Final 2 25-OH Vitamin D total (Calcidiol + Calciferol) 07/07/19 11 12:30-04 00 Final 3 25-OH Vitamin D total (Calcidiol + Calciferol) 07/07/19 11 12:30-04 00 Deficient: <20.0 ng/mL Final 4 25-OH Vitamin D total (Calcidiol + Calciferol) 07/07/19 11 12:30-04 00 Insufficient: 20.0-29.9 ng/ml Final 5 25-OH Vitamin D total (Calcidiol + Calciferol) 07/07/19 11 12:30-04 00 Sufficient: 30.0-100.0 ng/ml Final 6 25-OH Vitamin D total (Calcidiol + Calciferol) 07/07/19 11 12:30-04 00 High: >100.0 ng/ml Final 7 25-OH Vitamin D total (Calcidiol + Calciferol) 07/07/19 11 12:30-04 00 Final 8 25-OH Vitamin D total (Calcidiol + Calciferol) 07/07/19 11 12:30-04 00 Refer to [facility] Final 9 25-OH Vitamin D total (Calcidiol + Calciferol) 07/07/19 11 12:30-04 00 for Practitioners Best Practice Final 10 25-OH Vitamin D total (Calcidiol + Calciferol) 07/07/19 11 12:30-04 00 Guidelines for therapeutic Final 11 25-OH Vitamin D total (Calcidiol + Calciferol) 07/07/19 11 12:30-04 00 recommendations. Final
--- OUTSIDE RECORDS SUMMARY | 2022-12-05 06:21 | External Medical Summary ---
Author Name Unknown Organization [id number] Support Name Relationship Address Phone JUAN COYNE MD PROV Unknown Unavailable Laboratory Report Ordering Provider Test Date Status JUAN COYNE MD 07/05/2010 08:20-0400 Final Obs # Observation Date Value ABNL Reference Status Pe rforming Location 1 HOURS FASTING 07/06/19 11 08:21-04 00 12 hours Final 2 Triglyceride 07/06/19 11 14:37-04 00 101 60-290 mg/dL Final 3 Cholesterol 07/06/19 11 14:37-04 00 207 H <200 mg/dL Final 4 HDL 07/06/19 11 14:37-04 00 73 H 40-59 mg/dL Final 5 Cholesterol / HDL ratio 07/06/19 11 14:37-04 00 2.8 Final 6 LDL (calculated) 07/06/19 11 14:37-04 00 114 0-129 mg/dL Final 7 LDL (calculated) 07/06/19 11 14:37-04 00 Final 8 LDL (calculated) 07/06/19 11 14:37-04 00 LIPID PANEL REFERENCE RANGES (mg/dL) Final 9 LDL (calculated) 07/06/19 11 14:37-04 00 Final 10 LDL (calculated) 07/06/19 11 14:37-04 00 LDL CHOLESTEROL Final 11 LDL (calculated) 07/06/19 11 14:37-04 00 <100 OPTIMAL GOAL FOR HIGH RISK PATIENTS Final 12 LDL (calculated) 07/06/19 11 14:37-04 00 100-129 NEAR OR ABOVE NORMAL Final 13 LDL (calculated) 07/06/19 11 14:37-04 00 130-159 BORDERLINE HIGH Final 14 LDL (calculated) 07/06/19 11 14:37-04 00 160-189 HIGH Final 15 LDL (calculated) 07/06/19 11 14:37-04 00 >189 VERY HIGH Final 16 LDL (calculated) 07/06/19 11 14:37-04 00 Final 17 LDL (calculated) 07/06/19 11 14:37-04 00 TOTAL CHOLESTEROL Final 18 LDL (calculated) 07/06/19 11 14:37-04 00 <200 DESIRABLE Final 19 LDL (calculated) 07/06/19 11 14:37-04 00 200-239 BORDERLINE HIGH Final 20 LDL (calculated) 07/06/19 11 14:37-04 00 >239 HIGH Final 21 LDL (calculated) 07/06/19 11 14:37-04 00 Final 22 LDL (calculated) 07/06/19 11 14:37-04 00 HDL [id number] Final 23 LDL (calculated) 07/06/19 11 14:37-04 00 <40 LOW Final 24 LDL (calculated) 07/06/19 11 14:37-04 00 40-59 NORMAL Final 25 LDL (calculated) 07/06/19 11 14:37-04 00 >59 HIGH Final
--- OUTSIDE RECORDS SUMMARY | 2022-12-05 06:21 | External Medical Summary ---
Author Name KT ORDAZ Organization K01:[facility], [address] [address] Support Name Relationship Address Phone KT ORDAZ, P PROV Unknown Unavailable Laboratory Report Ordering Provider Test Date Status Celestino MERAZ MD 02/22/2012 09:16:00-0500 Final Obs # Observation Date Value ABNL Reference Status Pe rforming Location 1 Vitamin B12 02/22/2012 14:37-0500 614 211-946 pg/mL Final
--- OUTSIDE RECORDS SUMMARY | 2022-12-05 06:21 | External Medical Summary ---
Author Name KT ORDAZ Organization K01:[facility], [address] [address] Support Name Relationship Address Phone KT ORDAZ, P PROV Unknown Unavailable Laboratory Report Ordering Provider Test Date Status Celestino MERAZ MD 02/22/2012 09:16:00-0500 Final Obs # Observation Date Value ABNL Reference Status Pe rforming Location 1 TSH 02/22/2012 14:37-0500 1.16 0.27-4.2 uIU/mL Final
--- OUTSIDE RECORDS SUMMARY | 2022-12-05 06:21 | External Medical Summary | Summary of Care ---
Author Name Unknown Organization [place] [address] Care Team Providers Care Validation Architect Name Role Phone Milly Loza MD Primary Care Provider [phone] Reason for Visit * Reason Comments Appointment sleep med Encounter Details Date Type Department Care Team Description 08/26/2018 Telephone General Internal Medicine [facility] [address] [place], [place] [id number] Milly Loza MD [address] [place] [address] [phone] Appointment (sleep med) Allergies Active Allergy Reactions Severity Noted Date Comments Nitrofurantoin Chills/rigors 07/03/2010 Sulfamethoxazole Chills/rigors High 07/03/2010 documented as of this encounter (statuses as of 08/27/2018) Medications Medication Sig Dispensed Refills Start Date End Date Status MULTIVITAL PO TABS 1 TABLET DAILY 1 Tab 0 07/03/2010 Active VITAMIN D (ERGOCALCIFEROL) 09804 UNITS PO CAPSIndications:Vitam in D deficiency 1 [...] as of this encounter (statuses as of 08/27/2018) Active Problems Problem Noted Date Hair loss [...] as of this encounter (statuses as of 08/27/2018) Resolved Problems Problem Noted Date Resolved Date 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 * Telephone Encounter - Milly Loza MD - 08/26/2018 3:15 PM EDT Done * Telephone Encounter - Kayla Maloney OSA - 08/26/2018 2:09 PM EDT Pt is scheduled at [facility] on 08.28.[address] Corcoran. Please sign office note from today to be sent for this appointment. Thank you documented in this encounter Plan of Treatment Upcoming Encounters Date Type Specialty Care Team Description 08/29/2018 NeuroDiagnostic Study Neurophysiology Sp, Neurophys Tech [address] [place] [address] [phone] 09/26/2018 Office Visit Internal Medicine Milly Loza MD [address] [place] [address] [phone] Health Maintenance Due Date Last Done Comments [...] Documents on File Type Date Recorded Patient Research Professor Expl anation Advanced Directive Advanced Directive Advanced Directive Advanced Directive Advanced Directive Advanced Directive Advanced Directive Advanced Directive
--- OUTSIDE RECORDS SUMMARY | 2022-12-05 06:21 | External Medical Summary ---
Author Name Unknown Address Unknown Organization [id number]:[facility] [[facility]] ([id number],,) Laboratory Report Ordering Provider Test Date Status SAL MARSHALL 08/27/2018 08:24:00 Final Observation Date Value Abnormality Reference Status Fasting status Patient Ql Reported 08/27/2018 08:26 >8 HOURS Final Triglyceride 08/27/2018 14:34 91 <200 Final Performing Location [facility] [[facility]]([id number],1,,)
--- OUTSIDE RECORDS SUMMARY | 2022-12-05 06:21 | External Medical Summary | Summary of Care ---
Author Name Unknown Organization [facility] [address] Care Team Providers Care Header Set Up Operator Name Role Phone Milly Loza MD Primary Care Provider [phone] Reason for Visit * Reason Comments Appointment sleep med Encounter Details Date Type Department Care Team Description 08/26/2018 Telephone General Internal Medicine [facility] [address] [place], [place] [id number] Milly Loza MD [address] [place] [address] [phone] Appointment (sleep med) Allergies Active Allergy Reactions Severity Noted Date Comments Nitrofurantoin Chills/rigors 07/03/2010 Sulfamethoxazole Chills/rigors High 07/03/2010 documented as of this encounter (statuses as of 08/26/2018) Medications Medication Sig Dispensed Refills Start Date End Date Status MULTIVITAL PO TABS 1 TABLET DAILY 1 Tab 0 07/03/2010 Active VITAMIN D (ERGOCALCIFEROL) 88137 UNITS PO CAPSIndications:Vitam in D deficiency 1 [...] 2:09 PM EDT Pt is scheduled at [facility] [place] Corcoran. Please sign office note from today to be sent for this appointment. Thank you documented in this encounter Plan of Treatment Upcoming Encounters Date Type Specialty Care Team Description 08/29/2018 NeuroDiagnostic Study Neurophysiology Sp, Neurophys Tech [address] [place] [address] [phone] 09/26/2018 Office Visit Internal Medicine Milly Loza MD 200 [facility] [place] [address] [phone] Health Maintenance Due Date Last Done Comments [...] Documents on File Type Date Recorded Patient Stopperer Assembler Expl anation Advanced Directive Advanced Directive Advanced Directive Advanced Directive Advanced Directive Advanced Directive Advanced Directive Advanced Directive
--- OUTSIDE RECORDS SUMMARY | 2022-12-05 06:21 | External Medical Summary | Summary of Care ---
Author Name Unknown Organization [place] [address] Care Team Providers Care Window Installer Name Role Phone Milly Loza MD Primary Care Provider [phone] Encounter Details Date Type Department Care Team Description 08/28/2018 Scan Encounter Unspecified Department <No scans attached> Allergies Active Allergy Reactions Severity Noted Date Comments Nitrofurantoin Chills/rigors 07/03/2010 Sulfamethoxazole Chills/rigors High 07/03/2010 documented as of this encounter (statuses as of 08/29/2018) Medications Medication Sig Dispensed Refills Start Date End Date Status MULTIVITAL PO TABS 1 TABLET DAILY 1 Tab 0 07/03/2010 Active VITAMIN D (ERGOCALCIFEROL) 32083 UNITS PO CAPSIndications:Vitam in D deficiency 1 [...] as of this encounter (statuses as of 08/29/2018) Active Problems Problem Noted Date Hair loss [...] as of this encounter (statuses as of 08/29/2018) Resolved Problems Problem Noted Date Resolved Date 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 12/201009/14/2010 Overview: ICD-10 update of inactive term HEMANGIOMA SKIN RIGHT CHEEK 09/14/201011/2012 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
--- OUTSIDE RECORDS SUMMARY | 2022-12-05 06:21 | External Medical Summary ---
Author Name Unknown Organization K01:[facility], [address] [address] Support Name Relationship Address Phone JUAN COYNE MD PROV Unknown Unavailable Laboratory Report Ordering Provider Test Date Status JUAN COYNE MD 07/05/2010 08:20-0400 Final Obs # Observation Date Value ABNL Reference Status Pe rforming Location 1 BUN 07/05/2010 14:37-0400 12 6-20 mg/dL Final 2 Creatinine 07/05/2010 14:37-0400 0.8 0.7-1.5 mg/dL Final 3 Sodium 07/05/2010 14:37-0400 139 135-146 mmol/L Final 4 Potassium 07/05/2010 14:37-0400 4.3 3.5-5.1 mmol/L Final 5 Cl 07/05/2010 14:37-0400 105 98-111 mmol/L Final 6 CO2 07/05/2010 14:37-0400 26 22-32 mmol/L Final 7 Glucose 07/05/2010 14:37-0400 95 70-120 mg/dL Final 8 Albumin, Serum 07/05/2010 14:37-0400 4.7 3.8-5.0 g/dL Final 9 AST (Aspartate aminotransferase) 07/05/2010 14:37-0400 29 10-50 U/L Final 10 Alk Phos 07/05/2010 14:37-0400 72 25-125 U/L Final 11 Bilirubin, Total 07/05/2010 14:37-0400 0.6 0.3-1.3 mg/dL Final 12 Calcium 07/05/2010 14:37-0400 9.4 8.3-10.5 mg/dL Final 13 Protein 07/05/2010 14:37-0400 6.9 6.0-8.3 g/dL Final 14 ALT (Alanine aminotransferase) 07/05/2010 14:37-0400 40 10-50 U/L Final 15 Anion gap 07/05/2010 14:37-0400 8 7-15 mmol/L Final 16 GFR / 1.73 sq M.predicted 07/05/2010 14:37-0400 >60.0 >60 mL/min Final
--- OUTSIDE RECORDS SUMMARY | 2022-12-05 06:21 | External Medical Summary | Summary of Care ---
Author Name Unknown Organization [place] [address] Care Team Providers Care Principal Systems Engineer Name Role Phone Milly Loza MD Primary Care Provider [phone] Reason for Visit * Reason Comments EEG Encounter Details Date Type Department Care Team Description 08/29/2018 NeuroDiagnostic Study Neurophysiology [facility] [address] [place] [address] Sp, Neurophys Tech 200 [facility] [place] [address] [phone] Arrived Allergies Active Allergy Reactions Severity Noted Date Comments Nitrofurantoin Chills/rigors 07/03/2010 Sulfamethoxazole Chills/rigors High 07/03/2010 documented as of this encounter (statuses as of 08/29/2018) Medications Medication Sig Dispensed Refills Start Date End Date Status MULTIVITAL PO TABS 1 TABLET DAILY 1 Tab 0 07/03/2010 Active VITAMIN D (ERGOCALCIFEROL) 52837 UNITS PO CAPSIndications:Vitam in D deficiency 1 [...] Travel End documented as of this encounter Progress Notes * Mikhail Anton, - 08/29/2018 2:06 PM EDT ROUTINE EEG REPORT Name: El Suggs Date of study: 08/29/18 Age: [age] year old Outpatient Referring Physician: Milly Loza MD TECHNICAL REMARKS: This is a technically satisfactory eighteen channel record employing 21 disc electrodes applied according to a measured international 10-20 electrode placement system. There were no significant technical difficulties. The study was done on a digital Profusion system. CLINICAL INFORMATION: A 58 year old man with muscle jerks. EEG performed for evaluation of epileptiform activity. MEDICATIONS: Current Outpatient Medications Medication Sig Dispense Refill [...] 400 mg each day VITAMIN D (ERGOCALCIFEROL) 96157 UNITS PO CAPS 1 capsule weekly 4 Cap 5 MULTIVITAL PO TABS 1 TABLET DAILY 1 Tab 0 REPORT: At the onset of the EEG, the patient is awake. The background activity consist of 10-11 Hz,persistent, posteriorly dominant, moderate amplitude, symmetric and rhythmic activity that is reactive to eye opening. Anteriorly, it consist of a mixture of low voltage indeterminate activity and 15-25 Hz, persistent, low amplitude, symmetric and rhythmic activity. Stepwise intermittent photic stimulation (1-21 Hz) and hyperventilation (3 minutes, good effort) do not induce any abnormalities. Drowsiness is characterized by low amplitude mixed frequency activity, roving eye movements, and decreased eye blinking and muscle artifact. Stage II sleep is characterized by sleep spindles. IMPRESSION: This is a normal awake and drowsy EEG. There is no evidence of focal slowing or epileptiform activity. Awake and drowsy [id number] Mikhail Anton DO documented in this encounter Plan of Treatment Upcoming Encounters Date Type Specialty Care Team Description 09/26/2018 Office Visit Internal Medicine Milly Loza MD [address] [place] [address] [phone] Health Maintenance Due Date Last Done Comments [...] as of this encounter Visit Diagnoses Diagnosis Jerking movements of extremities- Primary Abnormal involuntary movements documented in this encounter Advance Directives Documents on File Type Date Recorded Patient Checkout Supervisor Expl anation Advanced Directive Advanced Directive Advanced Directive Advanced Directive Advanced Directive Advanced Directive Advanced Directive Advanced Directive
--- OUTSIDE RECORDS SUMMARY | 2022-12-05 06:21 | External Medical Summary ---
Author Name Unknown Address [address] [id number] Phone Organization K01:[facility] [address] [id number] Laboratory Report Ordering Provider Test Date Status KT Tirado MD 06/04/2016 08:00:00 Final Obs # Observation Date Value Abnormality Reference Status Performing Location 0 PSA 06/04/2016 15:04 0.45 <3.1 Final [facility] [address] [facility] [address]
--- OUTSIDE RECORDS SUMMARY | 2022-12-05 06:21 | External Medical Summary ---
Author Name Unknown Address [facility] [address] [id number] Phone Organization K01:[place] [address] Laboratory Report Ordering Provider Test Date Status SAL MARSHALL 08/27/2018 08:24:00 Final Observation Date Value Abnormality Reference Status Folic Acid 08/27/2018 15:46 18.7 >4.5 Fi nal Performing Location [place] [id number]
--- OUTSIDE RECORDS SUMMARY | 2022-12-05 06:21 | External Medical Summary ---
Author Name Unknown Address [address] [id number] Phone Organization K01:[facility] [address] [facility] [address] Laboratory Report Ordering Provider Test Date Status KT Tirado MD 06/04/2016 08:00:00 Final Obs # Observation Date Value Abnormality Reference Status Performing Location 0 Glucose 06/04/2016 14:58 90 70-120 Final [facility] [address] [facility] [address]
--- OUTSIDE RECORDS SUMMARY | 2022-12-05 06:22 | External Medical Summary ---
Author Name Unknown Organization K01:[facility], [address] [id number] Support Name Relationship Address Phone JUAN COYNE MD PROV Unknown Unavailable Laboratory Report Ordering Provider Test Date Status JUAN COYNE MD 07/05/2010 08:20-0400 Final Obs # Observation Date Value ABNL Reference Status Pe rforming Location 1 PSA SCREENING 07/05/2010 14:0400 0.42 <3.1 ng/mL Final
[2022-12-05] MEDS ORDERED: CLOPIDOGREL BISULFATE 75 MG TAB PO SCH (09:00)
[2022-12-05] MEDS ORDERED: ENOXAPARIN INJ 40 MG/0.4 ML SYR SQ SCH (09:00)
[2022-12-05] MEDS ORDERED: MULTIVITAMIN TAB PO SCH (09:00)
--- NOTE | 2022-12-05 13:11 | Hospitalist Progress Note ---
Date of Service December 05, 2022 Assessment & Plan Admission and Anticipated Discharge Date Admission Date: December 04, 2022 Results & Data Results & Data Vital Signs (Past 12 Hours) Vital Signs Temp Pulse Pulse Resp BP Pulse Ox O2 Del Method 12/05/22 11:34 36.6 C 52 L 19 123/74 98 Room Air 12/05/22 09:00 49 L 12/05/22 07:31 36.9 C 54 L 19 114/73 97 Room Air 12/05/22 07:08 36.8 C 51 L 18 118/74 98 Room Air 12/05/22 02:37 36.5 C 82 18 116/67 94 Room Air
--- NOTE | 2022-12-05 13:46 | Discharge Summary ---
Date of Service December 05, 2022 Admission HPI Per Admitting Provider History obtained from patient, family, and records. Medical history significant for CAD status post recent stent, valvular heart disease (moderate aortic stenosis, trace MR/TR), JACQUELYN on CPAP. Patient underwent outpatient diagnostic cardiac catheterization yesterday by [facility] latent fingerprint examiner following abnormal stress test. Subsequent PCI of severe proximal LAD CAD. Patient discharged on new antiplatelet and statin medications. Patient had substernal discomfort this afternoon with shortness of breath and diaphoresis. Nonpleuritic. Patient stressed out thinking about medical and dental bills. No response to Tums and nitro medication intake. EMS called to patient's home. Blood pressure 80s, heart rate 40s. Patient given atropine and aspirin by EMS. Chest pressure improved after intervention. Patient subsequently transported to the ER. 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 Admission Exam Per Admitting Provider GENERAL: Comfortable, slightly anxious, pleasant, no respiratory distress SKIN: Normal color, warm HEENT: Bespectacled, [place] palpebral conjunctivae, no ptosis, dry buccal mucosa NECK : Supple, no tenderness CHEST : CTA, no tenderness HEART : Bradycardic, systolic murmur ABDOMEN: Some distention, nontender EXTREMITIES : No LE swelling/tenderness, no other conspicuous deformities noted NEUROLOGIC : Coherent, no facial asymmetry, no other gross focality Principal Diagnosis Symptomatic bradycardia Discharge Exam Constitutional + well hydrated; no acute distress Eyes PERRL, conjunctivae normal, anicteric sclerae ENMT external ear and nose normal, oropharynx normal Respiratory normal respiratory effort, lungs clear to auscultation Cardiovascular Rate/Rhythm: + bradycardic S1 S2 Gastrointestinal (Abdomen) normal bowel sounds, soft, nontender, no hepatosplenomegaly Musculoskeletal no cyanosis or clubbing, extremities motor strength 5/5 Neurologic PERRL, EOMI, accommodation nl, no face palsy, no dysarthria Psychiatric A+Ox3, euthymic affect Discharge Data Allergies Allergy/AdvReac Type Severity Reaction Status Date / Time nitrofurantoin AdvReac Intermediate Chills, Verified 12/04/22 18:27 Rigors sulfadimethoxine AdvReac Intermediate Chills, Verified 12/04/22 18:27 rigors Consultations 12/04/22 19:26 ED Decision to Admit Stat 12/04/22 22:51 Consult Cardiology Routine Hospital Course (1) Symptomatic bradycardia: Plan Reported chest pain yesterday which lasted about 1 hr Pain was reported to be different from prior angina before recent cardiac cath and PCI Was bradycardic (sinus bradycardia) on presentation down to 40s EKG did not show new ST-T changes Troponin trending down considering PCI 2 days ago Cardiology evaluated Patient's metoprolol succinate stopped Currently denies any complaints Patient to continue all other medications Patient to follow up with his PCP and [employer] Total Time Total Time Spent Total Time Spent (In Minutes): 35 Total Time Includes: Examination of the Patient, Discharge Planning, Medication Reconciliation and Communication With Other Providers Discharge Plan Discharge Items Patient Disposition: Home - Self-Care Reason For Visit: BRADYCARDIA Discharge Diagnosis: Symptomatic bradycardia Activity: Resume your previous activity Non-emergency contact: Primary Care Provider and [employer] Call non-emergency contact if: you have any medication questions Follow-up/Referrals: Milly Loza MD [Primary Care Provider] - (Date & Time 12/12/2022 10:00 AM Provider Milly Loza MD Department General Internal Medicine [facility] ) Diet: Heart Healthy Addtl Attending Provider Instructions: Mr Suggs. You came to the hospital complaining of chest discomfort and was found to have reduced heart rate. You were evaluated by [employer]. Please stop taking metoprolol succinate for now. Please ensure follow up with your Primary Doctor and [employer]. It was a pleasure taking care of you. Pending Studies at Discharge: No Stand-Alone Forms: My [facility], Smoking Cessation Medications and DC Order Prescriptions: Continued omega-3 fatty acids-fish oil [Fish Oil] 360-1,200 mg capsule 2 cap PO DAILY multivitamin [Daily Multi-Vitamin] Tablet 1 tab PO DAILY nitroglycerin 0.4 mg tablet, sublingual 0.4 mg sublingual Q5M PRN (Reason: chest pain) Qty: 20 0RF Rx Instructions: do not exceed 3 doses per episode (DME) CPAP Machine Misc See Dose Instructions .ROUTE .MEDSUPPLY Qty: 1 0RF Dose Instruction: As directed Rx Instructions: CPAP 10 CENTIMETER C FLEX 1 HIRAL 99 HEATED HUMIDITY CPAP SUPPLIES MASK OF CHOICE CARE PLUS OXYGEN SUPPLIES CPAP SUPPLIES (DME) CPAP Machine Misc See Dose Instructions .ROUTE .MEDSUPPLY Qty: 1 0RF Dose Instruction: As directed Rx Instructions: INCREASE CPAP TO 11CM CARE PLUS loratadine [Allergy Relief (loratadine)] 10 mg tablet 10 mg PO DAILY PRN (Reason: allergy symptoms) clopidogrel [Plavix] 75 mg tablet 75 mg PO DAILY Qty: 90 3RF atorvastatin 80 mg tablet 80 mg PO HS Qty: 30 5RF ascorbic acid (vitamin C) [Vitamin C] 500 mg Tablet 500 mg PO DAILY jena (Zingiber officinalis) 500 mg Capsule 0 mg PO DAILY Rx Instructions: PT UNSURE OF STRENGTH, TAKES 2 CAPSULES DAILY turmeric 400 mg Capsule 400 mg PO BID Rx Instructions: USUALLY 5-7 DAYS/WK. aspirin 81 mg tablet,delayed release (DR/EC) 81 mg PO HS Discontinued metoprolol succinate 25 mg tablet extended release 24 hr 25 mg PO HS Discharge Orders: Discharge Order (Routine); Ordered 12/05/22 Ordered By: Irena Pizarro Admission Data Admit Date/Time: 12/04/22 20:48 Attending Provider: Irena Pizarro I. Admit Provider: Singh Keith Primary Care Provider: Milly Loza Other Providers: Singh Keith ; Austin Trevizo ; Kell Watson Other Interventions: Discharge Summary Assessment (RN) Last Done: 12/05/22 14:22
--- NOTE | 2022-12-05 13:48 | Cardiology Consultation ---
Date of Consultation December 05, 2022 Assessment & Plan (1) Chest pain: (2) Elevated troponin: (3) Symptomatic bradycardia: (4) Bicuspid aortic valve: (5) Aortic stenosis: (6) CAD (coronary artery disease): (7) S/P coronary artery stent placement: Plan ASSESSMENT/PLAN: 1. Chest pain: Completely different than prior angina. Etiology uncertain. Persisted for at least 1 hour and troponin did not climb, but rather trending downward following recent PCI. Echo ordered. ECG, echo, and troponin findings are not consistent with acute coronary syndrome. If recent LAD stent thrombosed, would expect ST elevation with significant troponin elevation and wall motion abnormality on echo. Noncardiac chest pain evaluation as per primary service. 2. Elevated troponin: Likely due to recent PCI as it has continued to trend downward since initial evaluation and is only minimally elevated. Plan as above. 3. Bradycardia: Apparently at heart rate in the 40s when EMS arrived and symptoms improved with atropine. Baseline heart rate per his is mid 50s. Metoprolol had been recently initiated. Agree with discontinuation of metoprolol, including no beta-jeff on discharge. Heart rate seems to be at his baseline. 4. Hypotension: Apparently had systolic blood pressure in the 80s when EMS arrived. Likely due to use of nitroglycerin before EMS arrived. Blood pressure normal here. Discontinuation of beta-jeff as above. 5. Bicuspid aortic valve with aortic stenosis: Nonsevere. Would not account for his presentation. Continue to follow as an outpatient. 6. CAD s/p LAD PCI: Continue dual antiplatelet therapy for at least 6 months. Aspirin 81 mg daily indefinitely. Continue high intensity statin therapy which was initiated earlier this week. Goal LDL < 70. Presentation not consistent with acute coronary syndrome or stent thrombosis as noted. No beta-jeff due to bradycardia. 7. Disposition: Patient care communicated with primary hospitalist, Dr. Osborn. Follow-up with Dr. Harrison as scheduled next week. Can be discharged home from a cardiac standpoint, if able to tolerate ambulation in the hallway. Today's visit was 55 minutes in duration, including [id number] time, counseling patient, addressing concerns with patient and , coordinating care, reviewing records, and completing documentation. Thank you for allowing me to participate in the care of your patient. Please call for any other questions or concerns. Sincerely, Veto Mead M.D. History of Present Illness Reason for Consultation: chest pain Requesting Physician: Dr. Keith Attending Physician: Irena Pizarro MD History of Present Illness Mr. Suggs is a very pleasant 62-year-old gentleman with a history significant for CAD s/p LAD PCI (12/03/22), bicuspid aortic valve with moderate aortic stenosis, and sleep apnea. His primary rn family is Dr. Harrison. On 12/03/2022, he underwent cardiac catheterization given exertional angina and abnormal stress echo reproducing his angina. He was found to have severe LAD CA D and underwent PCI with 2.75 x 33 mm Xience NATE. The LAD lesion correlated with stress echo findings. He was discharged home later that day. On 12/04/2022 at approximately 4:30 PM, he had nonexertional chest pain. It was a lower substernal intense and dull pain, which she reports as "distinctly different" from his prior angina that he had both with exercise and during the stress test. Symptoms persisted for approximately 1 hour. He was diaphoretic but not short of breath. He took nitroglycerin just before EMS arrived. He was reportedly found to have a systolic blood pressure in the 80s and heart rate in the 40s. He was given atropine and his symptoms quickly improved. His states that his heart rate is chronically in the 50s. Metoprolol had recently been initiated in the outpatient setting given CAD and his heart rate was in the 50s while here for his cardiac catheterization. Beta-jeff was discontinued upon admission for this hospital stay. He was seen this afternoon and denies current chest pain. He also denies shortness of breath, syncope, near syncope, palpitations, edema, or bleeding. He had not yet ambulated in the hallway. Review of systems: As above. Review of systems otherwise negative/unremarkable. Family history: Mother had CAD. Social history: Denies smoking. 1 or 2 alcoholic beverages daily. Lives at home with his . 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 His was present at the bedside. Allergies Allergy/AdvReac Type Severity Reaction Status Date / Time nitrofurantoin AdvReac Intermediate Chills, Verified 12/04/22 18:27 Rigors sulfadimethoxine AdvReac Intermediate Chills, Verified 12/04/22 18:27 rigors Home Medications Medication Instructions Recorded Confirmed Type CPAP Machine #1 ea 11/06/18 07/31/22 Rx CPAP Machine #1 ea 01/29/19 07/31/22 Rx multivitamin (Daily Multi-Vitamin 1 tab PO DAILY 04/29/19 12/04/22 History tablet) omega-3 fatty acids-fish oil 360 2 cap PO DAILY 04/29/19 12/04/22 History mg-1,200 mg capsule (Fish Oil) loratadine 10 mg tablet (Allergy 10 mg PO DAILY PRN allergy symptoms 06/08/20 12/04/22 History Relief (loratadine)) nitroglycerin 0.4 mg sublingual 0.4 mg sublingual Q5M PRN chest 11/29/22 12/04/22 Rx tablet pain #20 tabs atorvastatin 80 mg tablet 80 mg PO HS #30 tabs 12/03/22 12/04/22 Rx clopidogrel 75 mg tablet (Plavix) 75 mg PO DAILY #90 tabs 12/03/22 12/04/22 Rx ascorbic acid (vitamin C) 500 mg 500 mg PO DAILY 12/04/22 12/04/22 History tablet (Vitamin C) aspirin 81 mg tablet,delayed 81 mg PO HS 12/04/22 12/04/22 History release jena (Zingiber officinalis) 500 0 mg PO DAILY 12/04/22 12/04/22 History mg capsule turmeric 400 mg capsule 400 mg PO BID 12/04/22 12/04/22 History Patient History Medical History Aortic stenosis Bicuspid aortic valve CAD (coronary artery disease) Chronic sinusitis Obstructive sleep apnea of adult Prostatitis Surgical History (Updated 12/05/22 @ 13:47 by El Mead MD) History of tonsillectomy S/P coronary artery stent placement Family History Unknown Heart disease Dementia Myocardial infarction Unknown Multiple sclerosis Social History Smoking Status: Never smoker Hx Alcohol Use: Yes Alcohol type: beer Hx Substance Use: No Preferred Language: Thai Communication Ability: Effective 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 Alert and oriented. HEENT: Anicteric sclera. Neck: No JVD. Normal carotid upstrokes bilaterally. Cardiac: No ventricular heave. Regular rate and rhythm. Normal S1-S2. 2/6 mid peaking systolic ejection murmur heard best at right upper sternal border. No rubs or gallops. Pulmonary: Clear to auscultation bilaterally without wheezes, rales, or rhonchi. Abdomen: Soft, nontender, nondistended, with normoactive bowel sounds. No bruits noted. Extremities: 2+ radial pulses bilaterally. Right radial cath site is clean, dry, and intact without erythema or discharge. 2+ posterior tibialis pulses bilaterally. No edema or cyanosis. Psychiatric: Affect appears appropriate. Results & Data Vital Signs (Past 12 Hours) Vital Signs Temp Pulse Pulse Resp BP Pulse Ox O2 Del Method 12/05/22 11:34 36.6 C 52 L 19 123/74 98 Room Air 12/05/22 09:00 49 L 12/05/22 07:31 36.9 C 54 L 19 114/73 97 Room Air 12/05/22 07:08 36.8 C 51 L 18 118/74 98 Room Air 12/05/22 02:37 36.5 C 82 18 116/67 94 Room Air Laboratory Results Laboratory Results - last 24 hr 12/04/22 12/04/22 12/04/22 17:35 17:35 17:35 WBC 10.30 RBC 4.82 Hgb 14.9 Hct 41.5 L MCV 86.1 MCH 30.9 MCHC 35.9 RDW Std Deviation 40.6 RDW Coeff of Ninfa 13.1 Plt Count 303 MPV 11.4 Immature Gran % (Auto) 0.4 Neut % (Auto) 57.1 Lymph % (Auto) 31.9 [place] % (Auto) 7.3 Eos % (Auto) 2.2 Baso % (Auto) 1.1 Neut # (Auto) 5.88 Lymph # (Auto) 3.29 [place] # (Auto) 0.75 H Eos # (Auto) 0.23 Baso # (Auto) 0.11 Immature Gran # (Auto) 0.04 PT 10.8 INR 1.0 APTT 24.2 PTT Ratio 0.9 Sodium 139 Potassium 3.6 Chloride 109 H Carbon Dioxide 23 Anion Gap 7 BUN 14 Creatinine 0.81 Est Cr Clr Drug Dosing Not Reportable Est GFR ( Amer) 109.6 Est GFR (Non-Af Amer) 94.6 BUN/Creatinine Ratio 17.3 Glucose 112 H POC Glucose Calcium 9.4 Magnesium Total Bilirubin 0.8 AST 47 H ALT 42 Alkaline Phosphatase 84 Troponin I High Sens 45.4 H Total Protein 6.6 Albumin 4.6 Globulin 2.0 L Albumin/Globulin Ratio 2.3 H Triglycerides Cholesterol LDL Cholesterol, Calc VLDL Cholesterol, Calc HDL Cholesterol Cholesterol/HDL Ratio Lipase 44 TSH Lyme Disease IgG Ab Lyme Disease IgM Ab 12/04/22 12/04/22 12/04/22 17:35 18:02 20:45 WBC RBC Hgb Hct MCV MCH MCHC RDW Std Deviation RDW Coeff of Ninfa Plt Count MPV Immature Gran % (Auto) Neut % (Auto) Lymph % (Auto) [place] % (Auto) Eos % (Auto) Baso % (Auto) Neut # (Auto) Lymph # (Auto) [place] # (Auto) Eos # (Auto) Baso # (Auto) Immature Gran # (Auto) PT INR APTT PTT Ratio Sodium Potassium Chloride Carbon Dioxide Anion Gap BUN Creatinine Est Cr Clr Drug Dosing Est GFR ( Amer) Est GFR (Non-Af Amer) BUN/Creatinine Ratio Glucose POC Glucose 95 Calcium Magnesium 2.0 Total Bilirubin AST ALT Alkaline Phosphatase Troponin I High Sens Total Protein Albumin Globulin Albumin/Globulin Ratio Triglycerides Cholesterol LDL Cholesterol, Calc VLDL Cholesterol, Calc HDL Cholesterol Cholesterol/HDL Ratio Lipase TSH Lyme Disease IgG Ab Negative Lyme Disease IgM Ab Negative 12/04/22 12/04/22 12/05/22 20:47 20:47 04:40 WBC RBC Hgb Hct MCV MCH MCHC RDW Std Deviation RDW Coeff of Ninfa Plt Count MPV Immature Gran % (Auto) Neut % (Auto) Lymph % (Auto) [place] % (Auto) Eos % (Auto) Baso % (Auto) Neut # (Auto) Lymph # (Auto) [place] # (Auto) Eos # (Auto) Baso # (Auto) Immature Gran # (Auto) PT INR APTT PTT Ratio Sodium 139 Potassium 4.0 Chloride 110 H Carbon Dioxide 23 Anion Gap 6 BUN 12 Creatinine 0.76 Est Cr Clr Drug Dosing 115.7 Est GFR ( Amer) 112.5 Est GFR (Non-Af Amer) 97.1 BUN/Creatinine Ratio 15.8 Glucose 94 POC Glucose Calcium 9.0 Magnesium Total Bilirubin AST ALT Alkaline Phosphatase Troponin I High Sens 43.9 H 33.4 H D Total Protein Albumin Globulin Albumin/Globulin Ratio Triglycerides 78 Cholesterol 147 LDL Cholesterol, Calc 72 VLDL Cholesterol, Calc 16 HDL Cholesterol 59 Cholesterol/HDL Ratio 2.5 Lipase TSH 1.324 Lyme Disease IgG Ab Lyme Disease IgM Ab 12/05/22 12/05/22 04:40 04:41 WBC 7.26 RBC 4.36 L Hgb 13.3 L Hct 37.8 L MCV 86.7 MCH 30.5 MCHC 35.2 RDW Std Deviation 41.0 RDW Coeff of Ninfa 13.0 Plt Count 193 MPV 10.6 Immature Gran % (Auto) 0.1 Neut % (Auto) 67.7 Lymph % (Auto) 22.0 [place] % (Auto) 7.9 Eos % (Auto) 1.5 Baso % (Auto) 0.8 Neut # (Auto) 4.91 Lymph # (Auto) 1.60 [place] # (Auto) 0.57 Eos # (Auto) 0.11 Baso # (Auto) 0.06 Immature Gran # (Auto) 0.01 PT INR APTT 26.8 PTT Ratio 1.0 Sodium Potassium Chloride Carbon Dioxide Anion Gap BUN Creatinine Est Cr Clr Drug Dosing Est GFR ( Amer) Est GFR (Non-Af Amer) BUN/Creatinine Ratio Glucose POC Glucose Calcium Magnesium Total Bilirubin AST ALT Alkaline Phosphatase Troponin I High Sens Total Protein Albumin Globulin Albumin/Globulin Ratio Triglycerides Cholesterol LDL Cholesterol, Calc VLDL Cholesterol, Calc HDL Cholesterol Cholesterol/HDL Ratio Lipase TSH Lyme Disease IgG Ab Lyme Disease IgM Ab Diagnostic Findings Telemetry personally reviewed: Sinus bradycardia in the 50s. History and physical report reviewed. Cardiac catheterization report reviewed. ECG personally reviewed from 12/04/2022 at 1800: Sinus arrhythmia at 72 bpm. Chest x-ray 12/04/2022: No acute cardiopulmonary abnormalities. Echo 12/05/2022: Normal LV systolic function and wall motion. Moderate aortic stenosis on preliminary review. Formal review to follow. Labs reviewed and notable for slightly elevated downward trending high- sensitivity troponin, normal potassium, normal renal function, normal TSH, slight anemia. Medications Administered Current Inpatient Medications Acetaminophen (Acetaminophen 325 Mg Tab) 650 mg PO Q4H PRN PRN Reason: Pain or Fever Stop: 01/03/23 22:50 Aspirin (Aspirin 81 Mg Ectab) 81 mg PO HS ERICKA Stop: 01/04/23 20:59 Atorvastatin Calcium (Atorvastatin 40 Mg Tab) 80 mg PO HS ERICKA Stop: 01/03/23 22:50 Last Admin: 12/04/22 23:29 Dose: 80 mg Atropine Sulfate (Atropine Sulfate 0.1 Mg/Ml 10ml Syr) 1 mg IV Q3M PRN PRN Reason: symptomatic bradycardia Stop: 01/03/23 20:49 Clopidogrel Bisulfate (Clopidogrel Bisulfate 75 Mg Tab) 75 mg PO DAILY ERICKA Stop: 01/04/23 08:59 Last Admin: 12/05/22 08:15 Dose: 75 mg Enoxaparin Sodium (Enoxaparin Inj 40 Mg/0.4 Ml Syr) 40 mg SQ QAM ERICKA Stop: 01/04/23 08:59 Last Admin: 12/05/22 08:15 Dose: 40 mg Promethazine HCl 6.25 mg/ (Sodium Chloride) 50.25 mls @ 201 mls/hr IV Q6H PRN PRN Reason: Nausea And Vomiting Stop: 01/03/23 20:49 Loratadine (Loratadine 10 Mg Tab) 10 mg PO DAILY PRN PRN Reason: allergy symptoms Stop: 01/03/23 22:50 Lorazepam (Lorazepam 0.5 Mg Tab) 0.5 mg PO TID PRN PRN Reason: Anxiety Stop: 01/03/23 20:49 Morphine Sulfate (Morphine Sulfate 2 Mg/Ml Carp) 2 mg IV Q3H PRN PRN Reason: Pain Stop: 12/18/22 20:49 Multivitamins (Multivitamin Tab) 1 tab PO DAILY ERICKA Stop: 01/04/23 08:59 Last Admin: 12/05/22 08:16 Dose: 1 tab Tramadol HCl (Tramadol Hcl 50 Mg Tablet) 25 mg PO Q4H PRN PRN Reason: Pain Stop: 01/03/23 20:49 PG Care Time/CCT Total # of Minutes Spent Total Time Spent with Patient: Total time spent is greater than 50% in coordination of care (as documented) at patient's floor/unit and/or counseling patient: Coding Level of Care Code 33612 INT INP/OBS CARE 2/55MIN Diagnoses Chest pain R07.9 Chest pain type: unspecified Elevated troponin R77.8 Symptomatic bradycardia R00.1 Bicuspid aortic valve Q23.1 Aortic stenosis I35.0 CAD (coronary artery disease) I25.10 S/P coronary artery stent placement Z95.5 Time Spent (min) 55 (1) Chest pain Chest pain type: unspecified Qualified Code(s): R07.9 - Chest pain, unspecified
[2022-12-05] MEDS ORDERED: ASPIRIN 81 MG ECTAB PO SCH (21:00)
--- NOTE | 2022-12-05 22:58 | XCELERA ---
[id number] [id number]
== END 2022-12-05 15:05 | disposition home or self-care (01) | DRG 310 ==
LOC: ED 17:57 → 4W 20:48 → SUATTDRO 20:48 → 4W 22:45